=== PATIENT | male | born 1930 | race Caucasian/White ===

== ENCOUNTER → 2016-04-30 | Outpatient (CLI) | payer OTHER ==
[~2016-04-30] MED LIST: AMOX1TAB42 PO; ASPI81TA28 PO; DFL50 PO; ERGO1CAP41 PO; ESCI1TAB6 PO; GLC/500 PO; LEVO25TA PO; MELO15TA4 PO; NYSS/ PO; SIMV80TA2 PO; SYN50 PO; ZNTT/150 PO
[2016-04-30 09:48] LABS: BASO % 0.4 %; BASO ABS # 0.05 K/uL (0-0.2); COMPLETE YES; EOS % 2.5 %; HEMATOCRIT 38.8 % (42-52); IG% 0.8 %; LYMPH % 28.9 %; LYMPH ABS # 3.23 K/uL (1.2-3.4); MEAN CELL VOLUME 83.6 fL (80-100); MEAN CORPUSCULAR HGB CONC 33.5 g/dl (32-36); MEAN PLATELET VOLUME 11.8 fL (7.4-10.4); MONO % 15.2 %; NEUT % 52.2 %; PLATELET COUNT 196 K/uL (130-400); RED BLOOD COUNT 4.64 M/uL (4.7-6.1); WHITE BLOOD COUNT 11.19 K/uL (4.8-10.8)
[2016-04-30 10:01] LABS: BLOOD UREA NITROGEN 25 mg/dl (7-18); BUN/CREATININE RATIO 14.9 (10-20); CARBON DIOXIDE 27 mmol/L (21-32); CHLORIDE 107 mmol/L (98-107); GLUCOSE 108 mg/dl (70-99); POTASSIUM 4.2 mmol/L (3.5-5.1); SODIUM 142 mmol/L (136-145)
--- NOTE | 2016-05-01 13:22 | CODING QUERY NO DIAGNOSIS ---
TREATMENT RENDERED WITHOUT A DIAGNOSIS To promote full compliance with coding requirements relating to patient care, physician participation is requested in all cases of compo conveyor operator uncertainty. Please assist us with providing a diagnosis/symptom for the test(s) below: A diagnosis/symptom was not documented on your Order. A valid diagnosis/symptom is required to bill all insurances. Please remember that we are unable to code a diagnosis of rule out, probable, possible, questionable, or suspected. DATE OF SERVICE: 04/30/16 Tests that require a diagnosis: * BASIC METABOLIC PROFILE DIAGNOSIS: * CBC DIAGNOSIS: * TSH DIAGNOSIS: Provider Signature: Date: Thank you Geri Hernandez [facility] Information Management Once completed, please kindly fax back to [phone] For questions please call [phone]
== END | disposition home or self-care (01) ==
LOC: C.LABOUTLO 09:22
PROVIDERS: ATTEND Internal Medicine
DX: E03.9 Hypothyroidism, unspecified (principal); D64.9 Anemia, unspecified

== ENCOUNTER → 2016-05-15 | Outpatient (CLI) | payer OTHER ==
[2016-05-15 09:42] LABS: BLOOD UREA NITROGEN 21 mg/dl (7-18); BUN/CREATININE RATIO 14.9 (10-20); CALCIUM 8.6 mg/dl (8.5-10.1); CARBON DIOXIDE 29 mmol/L (21-32); CHLORIDE 106 mmol/L (98-107); GLUCOSE 104 mg/dl (70-99); POTASSIUM 4.3 mmol/L (3.5-5.1); SODIUM 142 mmol/L (136-145)
--- NOTE | 2016-05-16 10:34 | CODING QUERY NO DIAGNOSIS ---
TREATMENT RENDERED WITHOUT A DIAGNOSIS 31 To promote full compliance with coding requirements relating to patient care, physician participation is requested in all cases of municipal court magistrate uncertainty. Please assist us with providing a diagnosis/symptom for the test(s) below: A diagnosis/symptom was not documented on your Order. A valid diagnosis/symptom is required to bill all insurances. Please remember that we are unable to code a diagnosis of rule out, probable, possible, questionable, or suspected. DOS 05/15/16 Tests that require a diagnosis: * PARTIAL RENAL PROFILE DIAGNOSIS: Provider Signature: Date: Thank you Jill Caceres [place] Information Management Once completed, please kindly fax back to [phone] For questions please call [phone]
== END | disposition home or self-care (01) ==
LOC: C.LABOUTLO 09:24
PROVIDERS: ATTEND Internal Medicine
DX: E78.5 Hyperlipidemia, unspecified (principal)

== ENCOUNTER → 2016-05-29 | Outpatient (CLI) | payer OTHER ==
[~2016-05-29] MED LIST changes: -ERGO1CAP41 PO; +ERGO500011 PO
== END | disposition home or self-care (01) ==
LOC: C.LABOUTLO 09:17
PROVIDERS: ATTEND Internal Medicine
DX: E03.9 Hypothyroidism, unspecified (principal)

== ENCOUNTER → 2016-06-19 | Outpatient (CLI) | payer OTHER | END | disposition home or self-care (01) | LOC: C.LABOUTLO 08:28 | PROVIDERS: ATTEND Internal Medicine | DX: E03.9 Hypothyroidism, unspecified (principal) ==

== ENCOUNTER → 2016-06-30 | Outpatient (CLI) | payer OTHER ==
[2016-06-30 20:26] LABS: URINE APPEARANCE CLEAR (CLEAR); URINE BILIRUBIN NEG (NEG); URINE COLOR YELLOW; URINE NITRITE NEG (NEG); URINE PH 5.5 (4.5-7.5); URINE SPECIFIC GRAVITY 1.017 (1.000-1.030); UROBILINOGEN NEG (NEG)
[2016-06-30 20:30] LABS: MANUAL MICROSCOPIC REQUIRED? NO; REVIEW REQ? NO
== END | disposition home or self-care (01) ==
LOC: C.LABOUTLO 11:52
PROVIDERS: ATTEND Internal Medicine
DX: R31.9 Hematuria, unspecified (principal)

== ENCOUNTER → 2016-07-16 | Outpatient (CLI) | payer OTHER | END | disposition home or self-care (01) | LOC: C.LABOUTLO 09:04 | PROVIDERS: ATTEND Internal Medicine | DX: E03.9 Hypothyroidism, unspecified (principal) ==

== ENCOUNTER 2016-07-22 10:51 | Inpatient (IN) | payer OTHER ==
[~2016-07-22] VITALS: Ht 175.3 cm; Wt 77.4 kg
[~2016-07-22 10:51] MED LIST changes: -AMOX1TAB42 PO; -DFL50 PO; -ERGO500011 PO; -ESCI1TAB6 PO; -LEVO25TA PO; -MELO15TA4 PO; -NYSS/ PO; -SYN50 PO
[2016-07-22] MEDS ORDERED: SODIUM CHLORIDE 0.9% 1000ML 1,000 ML IV STA (11:20)
[2016-07-22 11:48] LABS: BASO % 0.3 %; BASO ABS # 0.04 K/uL (0-0.2); COMPLETE YES; EOS % 1.6 %; HEMATOCRIT 42.1 % (42-52); IG% 0.8 %; LYMPH % 11.3 %; LYMPH ABS # 1.76 K/uL (1.2-3.4); MEAN CELL VOLUME 82.1 fL (80-100); MEAN CORPUSCULAR HEMOGLOBIN 27.5 pg (25-34); MEAN CORPUSCULAR HGB CONC 33.5 g/dl (32-36); MEAN PLATELET VOLUME 10.8 fL (7.4-10.4); MONO % 11.2 %; NEUT % 74.8 %; PLATELET COUNT 205 K/uL (130-400); RED BLOOD COUNT 5.13 M/uL (4.7-6.1); WHITE BLOOD COUNT 15.59 K/uL (4.8-10.8)
--- NOTE | 2016-07-22 11:50 | DIAGNOSTIC IMAGING REPORT ---
CHEST ONE VIEW PORTABLE CLINICAL HISTORY: EVALUATE WEAKNESS dyspnea COMPARISON STUDY: None FINDINGS: Right basilar infiltrate and effusion. Mild cardia megaly. Prior median sternotomy. IMPRESSION: Right basilar infiltrate combine with a right effusion. Underlying components of mild congestive failure Electronically signed by: Joe Lubin M.D. 07/22/2016 11:48 AM Dictated Date/Time: 07/22/2016 11:48 AM
[2016-07-22 11:52] LABS: ALT/SGPT 21 U/L (12-78); AST/SGOT 17 U/L (15-37); BLOOD UREA NITROGEN 27 mg/dl (7-18); BUN/CREATININE RATIO 12.3 (10-20); CALCIUM 8.6 mg/dl (8.5-10.1); CARBON DIOXIDE 24 mmol/L (21-32); CHLORIDE 106 mmol/L (98-107); GLUCOSE 186 mg/dl (70-99); POTASSIUM 4.4 mmol/L (3.5-5.1); SODIUM 138 mmol/L (136-145)
[2016-07-22] MEDS ORDERED: MELO15TA4 PO (11:56)
[2016-07-22] MEDS ORDERED: ESCI1TAB6 PO (11:56)
[2016-07-22] MEDS ORDERED: LEVO25TA PO (11:56)
[2016-07-22] MEDS ORDERED: LEVAQUIN 750MG / 150ML D5W IV STA (12:00)
[2016-07-22 12:03] LABS: ALKALINE PHOSPHATASE 100 U/L (45-117)
--- NOTE | 2016-07-22 12:04 | DIAGNOSTIC IMAGING REPORT ---
HEAD CT NONCONTRAST CT DOSE: 729.78 mGycm HISTORY: Weakness EVALUATE WEAKNESS TECHNIQUE: Multiaxial CT images of the head were performed without the use of intravenous contrast. Comparison: None. Findings: The paranasal sinuses and mastoid air cells are clear. The calvarium and skull base are intact. The ventricles and sulci are within normal limits. There is no mass, hematoma, midline shift, or acute infarct. Findings of rather diffuse age-related chronic small vessel change as well as atrophy. No evidence for acute intracranial hemorrhage. Impression: Atrophy and chronic age-related change. No acute process. Electronically signed by: Joe Lubin M.D. 07/22/2016 12:02 PM Dictated Date/Time: 07/22/2016 12:01 PM
[2016-07-22] MEDS ORDERED: CEFEPIME IV 1,000 MG in DEXTROSE 5% 100ML 100 ML IV STA (12:24)
[2016-07-22] MEDS ORDERED: SODIUM CHLORIDE 0.9% 500ML 500 ML IV STA (12:24)
[2016-07-22 13:22] LABS: URINE APPEARANCE CLOUDY (CLEAR); URINE BILIRUBIN NEG (NEG); URINE COLOR DK YELLOW; URINE EPITHELIAL CELL AUTO 20-30 /lpf (0-5); URINE NITRITE NEG (NEG); URINE SPECIFIC GRAVITY 1.022 (1.000-1.030); UROBILINOGEN NEG (NEG)
[2016-07-22] MEDS ORDERED: ACETAMINOPHEN 325 MG TAB PO PRN (13:30)
[2016-07-22] MEDS ORDERED: ONDANSETRON INJ 2 MG/ML 2 ML VIAL IV PRN (13:30)
[2016-07-22] MEDS ORDERED: POLYETHYLENE (MIRALAX) 17 GM PACK PO PRN (13:30)
[2016-07-22 13:33] LABS: MANUAL MICROSCOPIC REQUIRED? NO; REVIEW REQ? YES
[2016-07-22] MEDS ORDERED: NYSS/ PO (13:33)
[2016-07-22 13:44] LABS: URINE MUCUS PRESENT (NONE PRSENT); URINE PATH CASTS 1-5 GRANULAR CASTS /lpf (0)
[2016-07-22] MEDS ORDERED: VANCOMYCIN CONSULT ACTIVE PRN (13:56)
[2016-07-22] MEDS ORDERED: LEVOFLOXACIN CONSULT ACTIVE PRN (14:00)
[2016-07-22] MEDS ORDERED: SODIUM CHLORIDE 0.9% 1000ML 1,000 ML IV SCH (14:00)
[2016-07-22] MEDS ORDERED: CEFEPIME CONSULT ACTIVE PRN ×2 (14:00)
--- NOTE | 2016-07-22 14:02 | History and Physical ---
History & Physical Date & Time of Service: July 22, 2016 at 13:42 Chief Complaint: Confusion, Lethergic [facility] History of Present Illness Source: patient, family, clinic records 86 yo M presents to ER from [facility] for increased weakness, lethargy, increased fatigue for the past two weeks. Workup revealed a RLL pneumonia and the patient reports some productive cough at least initially but denies any shortness of breath, chest pain, fevers, chills, headaches, dysuria or other urinary symptoms, abdominal pain or other pain, nausea, vomiting, or diarrhea. The history is given by the patient helped by his son who is at bedside. The son states that he just moved into [facility] in Apr and is doing well with it , but had recently been started on Lexapro for some depression. Otherwise no other new/changed medications and no other symptoms. At baseline, the patient ambulates without an assistive device. Past Medical/Surgical History Medical Problems: (1) Alzheimer disease Status: Chronic (2) GERD (gastroesophageal reflux disease) Status: Chronic (3) Hyperlipidemia Status: Chronic Surgical Problems: (1) History of heart valve replacement Status: Resolved Family History Patient reports no known family medical history. Social History Smoking Status: Never Smoker Smokeless Tobacco Use: No Alcohol Use: none Drug Use: none Marital Status: Housing status: fdc Occupational Status: retired Immunizations History of Influenza Vaccine: Unknown History of Tetanus Vaccine?: Unknown History of Pneumococcal: Unknown History of Hepatitis B Vaccine: Unknown Multi-Drug Resistant Organisms History of MDRO: No Allergies Coded Allergies: Donepezil (Unverified Adverse Reaction, Unknown, CONFUSION, 12/13/14) Ezetimibe (Unverified Adverse Reaction, Unknown, UNKNOWN, 12/13/14) Home Medications Scheduled Escitalopram Oxalate (Lexapro), 5 MG PO QAM Levothyroxine Sodium (Synthroid), 25 MCG PO QAM Meloxicam (Mobic), 12.5 MG PO DAILY Nystatin (Nystatin Suspension), 5 ML PO QID Ranitidine (Zantac), 150 MG PO BID Simvastatin (Zocor), 80 MG PO QPM Review of Systems Ten systems reviewed and negative except as indicated in HPI Physical Exam Vital Signs Date Time Temp Pulse Resp B/P Pulse Ox O2 Delivery O2 Flow Rate FiO2 07/22/16 13:28 76 07/22/16 12:06 66 24 92 07/22/16 12:02 95/65 07/22/16 12:01 89 14 07/22/16 11:41 80 25 93 07/22/16 11:36 84 15 94 07/22/16 11:31 70 17 91 07/22/16 11:30 96/71 07/22/16 11:26 80 32 92 07/22/16 11:21 94 21 07/22/16 11:16 92 18 93 07/22/16 11:12 98 07/22/16 11:11 87 14 92 07/22/16 11:10 93 Room Air 07/22/16 11:10 93 Room Air 07/22/16 11:08 105/65 07/22/16 10:57 36.7 88 18 87/59 93 Room Air GEN: WNWD, in no acute distress, alert and appropriate, no conversational dyspnea or tachypnea. [place] and doesn't have hearing aids in limiting exam. HEENT: NC/AT, PERRL, normal sclerae and conjunctivae, mucous membranes are moist , pharynx nonacute CARDIO: reg rate, S1/2 heard without m/g/r LUNGS: CTA bilaterally, no crackles, rales or wheezes, good diaphragmatic excursion except has diminished breath sounds at the right base ABD: soft, non-tender, non-distended, no rebound or guarding, +BS EXTREMITY: RP and DP palpable 2+ bilat, no LE swelling or edema, extremities are warm and well-perfused, small shallow pressure ulcers on soles of feet bilaterally NEURO: CN 2-12 grossly intact, sensation intact throughout, no gross focal deficits, has some obvious short term memory loss MUSC: 5/5 strength throughout, no focal deficits SKIN: warm and dry and wounds as above. Diagnostics Laboratory Results Results Past 24 Hours Test 07/22/16 11:10 07/22/16 12:49 Range/Units White Blood Count 15.59 4.8-10.8 K/uL Red Blood Count 5.13 4.7-6.1 M/uL Hemoglobin 14.1 14.0-18.0 g/dL Hematocrit 42.1 42-52 % Mean Corpuscular Volume 82.1 80-100 fL Mean Corpuscular Hemoglobin 27.5 25-34 pg Mean Corpuscular Hemoglobin Concent 33.5 32-36 g/dl Platelet Count 205 130-400 K/uL Mean Platelet Volume 10.8 7.4-10.4 fL Neutrophils (%) (Auto) 74.8 % Lymphocytes (%) (Auto) 11.3 % Monocytes (%) (Auto) 11.2 % Eosinophils (%) (Auto) 1.6 % Basophils (%) (Auto) 0.3 % Neutrophils # (Auto) 11.67 1.4-6.5 K/uL Lymphocytes # (Auto) 1.76 1.2-3.4 K/uL Monocytes # (Auto) 1.74 0.11-0.59 K/uL Eosinophils # (Auto) 0.25 0-0.5 K/uL Basophils # (Auto) 0.04 0-0.2 K/uL RDW Standard Deviation 39.6 36.4-46.3 fL RDW Coefficient of Variation 13.2 11.5-14.5 % Immature Granulocyte % (Auto) 0.8 % Immature Granulocyte # (Auto) 0.13 0.00-0.02 K/uL Sodium Level 138 136-145 mmol/L Potassium Level 4.4 3.5-5.1 mmol/L Chloride Level 106 98-107 mmol/L Carbon Dioxide Level 24 21-32 mmol/L Anion Gap 8.0 3-11 mmol/L Blood Urea Nitrogen 27 7-18 mg/dl Creatinine 2.20 0.60-1.40 mg/dl Est Creatinine Clear Calc Drug Dose 24.6 ml/min Estimated GFR () 30.5 Estimated GFR (Non- 26.3 BUN/Creatinine Ratio 12.3 10-20 Random Glucose 186 70-99 mg/dl Calcium Level 8.6 8.5-10.1 mg/dl Total Bilirubin 0.5 0.2-1 mg/dl Direct Bilirubin < 0.1 0-0.2 mg/dl Aspartate Amino Transf (AST/SGOT) 17 15-37 U/L Alanine Aminotransferase (ALT/SGPT) 21 12-78 U/L Alkaline Phosphatase 100 45-117 U/L Total Protein 8.3 6.4-8.2 gm/dl Albumin 3.2 3.4-5.0 gm/dl Thyroid Stimulating Hormone (TSH) 6.660 0.300-4.500 uIu/ml Urine Color DK YELLOW Urine Appearance CLOUDY CLEAR Urine pH 5.0 4.5-7.5 Urine Specific [place] 1.022 1.000-1.030 Urine Protein 2+ NEG Urine Glucose (UA) NEG NEG Urine Ketones TRACE NEG Urine Occult Blood 3+ NEG Urine Nitrite NEG NEG Urine Bilirubin NEG NEG Urine Urobilinogen NEG NEG Urine Leukocyte Esterase TRACE NEG Diagnostic Radiology CHEST ONE VIEW PORTABLE CLINICAL HISTORY: EVALUATE WEAKNESS dyspnea COMPARISON STUDY: None FINDINGS: Right basilar infiltrate and effusion. Mild cardia megaly. Prior median sternotomy. IMPRESSION: Right basilar infiltrate combine with a right effusion. Underlying components of mild congestive failure HEAD CT NONCONTRAST CT DOSE: 729.78 mGycm HISTORY: Weakness EVALUATE WEAKNESS TECHNIQUE: Multiaxial CT images of the head were performed without the use of intravenous contrast. Comparison: None. Findings: The paranasal sinuses and mastoid air cells are clear. The calvarium and skull base are intact. The ventricles and sulci are within normal limits. There is no mass, hematoma, midline shift, or acute infarct. Findings of rather diffuse age-related chronic small vessel change as well as atrophy. No evidence for acute intracranial hemorrhage. Impression: Atrophy and chronic age-related change. No acute process. EKG SR 87 occ PVCs Impression Assessment and Plan 86 yo M fdc resident presents with worsening weakness and confusion over past two weeks 2/2 RLL pneumonia 1. Weakness, confusion, lethargy 2/2 metabolic encephalopathy 2/2 HCAP- productive cough reported by patient but main symptoms are fatigue malaise and some intermittent confusion in the setting of known Alzheimer's dementia. Not requiring oxygen supplementation and does not appear dehydrated. Coming from [facility], and although not septic will cover him broadly initially until starts to improve clinically. Vanc, Cefepime and Levaquin ordered. Blood and sputum cultures pending. MRSA screening was negative so Vanc was d/c'd 2. AYLEEN in setting of CKD III- creat is 2.2 with baseline 1.4. Will order urine studies and give some IVF overnight. Although no clinical dehydration is apparent, he may have had decreased PO intake with the confusion, lethargy and frequent sleeping over the past two weeks. --> FeNa is 0.57% supporting prerenal azotemia likely 2/2 dehydration. Repeat PRP in am. 3. Leukocytosis 2/2 PNA-treatment per #1 and monitor daily CBC 4. h/o heart valve replacement-no CAD or stents per son, however, records request was placed 5. Alzheimer's dementia-h/o problems with donepezil in the past; good day/ night cycles in hospital to avoid delirium 6. GERD-cont Zantac 7. HLP-cont Zocor 8. Hypothyroidism-cont Synthroid. TSH slightly elevated to 6.6, however, I would clear up the infection and then re-evaluate his symptoms as an outpatient prior to going up on his Synthroid. DVT proph-heparin DNR-per son who is at bedside on admission Dispo-[facility] floor [facility] Level of Care Telemetry Resuscitation Status DO NOT RESUSCITATE VTE Prophylaxis VTE Risk Assessment Done? Y/N: Yes Risk Level: Moderate Given or contraindicated: Unfractionated heparin SQ Social Service Consult Lives in Senior Living
[2016-07-22 14:14] VITALS: BP 123/84; PULSE 80; TEMP 36.7; O2SAT 95; BMI 24.4
--- NOTE | 2016-07-22 15:05 | EMERGENCY ROOM VISIT NOTE ---
History Report prepared by Kike: Negar Chang Under the Supervision of: Dr. Josue Mckeon D.O. First contact with patient: 11:02 Chief Complaint: ILLNESS Stated Complaint: CONFUSION, LETHERGIC History of Present Illness The patient is a 86 year old male who presents to the Emergency Room with complaints of constant confusion that worsened about 2 weeks ago, per the patient's son. The patient resides at [facility] and he receives the lowest level of care so he pretty much takes care of himself. However, the patient's son states that the patient has needed more assistance recently and has been more confused than usual. The patient's son states that the patient's confusion is noticeably worse than previously, but it is still a gradual decline. The patient 's son also states that the patient has been sleeping a lot and staying in his room. The patient has also complained of dizziness, but has not experienced any syncope. The patient does not report any complaints with the exception of a mild cough and rhinorrhea. He denies headache, chest pain, shortness of breath, nausea, vomiting, diarrhea, and pain or burning with urination. The patient's son states that the patient saw a nurse practitioner 5 days ago and was started on Lexapro. He has also been given a new mouthwash recently. The patient's son denies any other new medications. Source of History: patient, family (son) Onset: 2 weeks ago Position: head Quality: other (confusion) Timing: constant, worsening Associated Symptoms: No SOB, No chest pain, No diarrhea, No headache, No nausea, No urinary symptoms (pain or burning with urination), No vomiting Note: dizziness, mild cough, rhionrrhea Review of Systems See HPI for pertinent positives & negatives. A total of 10 systems reviewed and were otherwise negative. Past Medical & Surgical Medical Problems: (1) Altered mental status (2) Alzheimer disease (3) GERD (gastroesophageal reflux disease) (4) Hyperlipidemia Surgical Problems: (1) History of heart valve replacement Family History Patient reports no known family medical history. Social History Smoking Status: Never Smoker Marital Status: Housing Status: lives with family Occupation Status: retired Current/Historical Medications Scheduled Escitalopram Oxalate (Lexapro), 5 MG PO QAM Levothyroxine Sodium (Synthroid), 25 MCG PO QAM Meloxicam (Mobic), 12.5 MG PO DAILY Nystatin (Nystatin Suspension), 5 ML PO QID Ranitidine (Zantac), 150 MG PO BID Simvastatin (Zocor), 80 MG PO QPM Allergies Coded Allergies: Donepezil (Unverified Adverse Reaction, Unknown, CONFUSION, 12/13/14) Ezetimibe (Unverified Adverse Reaction, Unknown, UNKNOWN, 12/13/14) Physical Exam Vital Signs Date Time Temp Pulse Resp B/P Pulse Ox O2 Delivery O2 Flow Rate FiO2 07/22/16 12:56 77 18 95 07/22/16 12:51 72 21 92 07/22/16 12:46 97 18 07/22/16 12:41 75 18 95 07/22/16 12:36 77 21 95 07/22/16 12:31 72 19 118/76 94 07/22/16 12:26 74 21 92 07/22/16 12:21 79 23 93 07/22/16 12:16 70 18 93 07/22/16 12:11 69 23 91 07/22/16 12:06 66 24 92 07/22/16 12:02 95/65 07/22/16 12:01 89 14 07/22/16 11:41 80 25 93 07/22/16 11:36 84 15 94 07/22/16 11:31 70 17 91 07/22/16 11:30 96/71 07/22/16 11:26 80 32 92 07/22/16 11:21 94 21 07/22/16 11:16 92 18 93 07/22/16 11:12 98 07/22/16 11:11 87 14 92 07/22/16 11:10 93 Room Air 07/22/16 11:10 93 Room Air 07/22/16 11:08 105/65 07/22/16 10:57 36.7 88 18 87/59 93 Room Air Physical Exam GENERAL: alert, sitting up in bed, chronically ill appearing, malnourished, no distress, non-toxic EYE EXAM: normal conjunctiva, PERRL and EOM's intact OROPHARYNX: no exudate, no erythema, lips, buccal mucosa, and tongue normal and mucous membranes are moist NECK: supple, no nuchal rigidity, no adenopathy, non-tender LUNGS: Clear to auscultation. Normal chest wall mechanics HEART: systolic ejection murmur, S1 normal and S2 normal ABDOMEN: abdomen soft, non-tender, normo-active bowel sounds, no masses, no rebound or guarding. BACK: Back is symmetrical on inspection and there is no deformity, no midline tenderness, no CVA tenderness. SKIN: no rashes and no bruising UPPER EXTREMITIES: upper extremities are grossly normal. LOWER EXTREMITIES: No pitting edema. NEURO EXAM: Oriented to person and hospital but not year, cranial nerves II-XII intact, normal speech, no weakness of arms, no weakness of legs. No drift. Finger to nose intact. Gross sensation intact. Medical Decision & Procedures ER Provider Diagnostic Interpretation: Radiology results as stated below per my review and the radiologist's interpretation: CHEST ONE VIEW PORTABLE FINDINGS: Right basilar infiltrate and effusion. Mild cardia megaly. Prior median sternotomy. IMPRESSION: Right basilar infiltrate combine with a right effusion. Underlying components of mild congestive failure Electronically signed by: Joe Lubin M.D. 07/22/2016 11:48 AM Dictated Date/Time: 07/22/2016 11:[address] NONCONTRAST Findings: The paranasal sinuses and mastoid air cells are clear. The calvarium and skull base are intact. The ventricles and sulci are within normal limits. There is no mass, hematoma, midline shift, or acute infarct. Findings of rather diffuse age-related chronic small vessel change as well as atrophy. No evidence for acute intracranial hemorrhage. Impression: Atrophy and chronic age-related change. No acute process. Electronically signed by: Joe Lubin M.D. 07/22/2016 12:02 PM Dictated Date/Time: 07/22/2016 12:01 PM Laboratory Results 07/22/16 11:10 Red Blood Count 5.13, Mean Corpuscular Volume 82.1, Mean Corpuscular Hemoglobin 27.5, Mean Corpuscular Hemoglobin Concent 33.5, Mean Platelet Volume 10.8, Neutrophils (%) (Auto) 74.8, Lymphocytes (%) (Auto) 11.3, Monocytes (%) (Auto) 11.2, Eosinophils (%) (Auto) 1.6, Basophils (%) (Auto) 0.3, Neutrophils # (Auto ) 11.67, Lymphocytes # (Auto) 1.76, Monocytes # (Auto) 1.74, Eosinophils # (Auto ) 0.25, Basophils # (Auto) 0.04 07/22/16 11:10 Test 07/22/16 11:10 07/22/16 12:49 White Blood Count 15.59 K/uL (4.8-10.8) Red Blood Count 5.13 M/uL (4.7-6.1) Hemoglobin 14.1 g/dL (14.0-18.0) Hematocrit 42.1 % (42-52) Mean Corpuscular Volume 82.1 fL (80-100) Mean Corpuscular Hemoglobin 27.5 pg (25-34) Mean Corpuscular Hemoglobin Concent 33.5 g/dl (32-36) Platelet Count 205 K/uL (130-400) Mean Platelet Volume 10.8 fL (7.4-10.4) Neutrophils (%) (Auto) 74.8 % Lymphocytes (%) (Auto) 11.3 % Monocytes (%) (Auto) 11.2 % Eosinophils (%) (Auto) 1.6 % Basophils (%) (Auto) 0.3 % Neutrophils # (Auto) 11.67 K/uL (1.4-6.5) Lymphocytes # (Auto) 1.76 K/uL (1.2-3.4) Monocytes # (Auto) 1.74 K/uL (0.11-0.59) Eosinophils # (Auto) 0.25 K/uL (0-0.5) Basophils # (Auto) 0.04 K/uL (0-0.2) RDW Standard Deviation 39.6 fL (36.4-46.3) RDW Coefficient of Variation 13.2 % (11.5-14.5) Immature Granulocyte % (Auto) 0.8 % Immature Granulocyte # (Auto) 0.13 K/uL (0.00-0.02) Anion Gap 8.0 mmol/L (3-11) Est Creatinine Clear Calc Drug Dose 24.6 ml/min Estimated GFR () 30.5 Estimated GFR (Non- 26.3 BUN/Creatinine Ratio 12.3 (10-20) Calcium Level 8.6 mg/dl (8.5-10.1) Total Bilirubin 0.5 mg/dl (0.2-1) Direct Bilirubin < 0.1 mg/dl (0-0.2) Aspartate Amino Transf (AST/SGOT) 17 U/L (15-37) Alanine Aminotransferase (ALT/SGPT) 21 U/L (12-78) Alkaline Phosphatase 100 U/L (45-117) Total Protein 8.3 gm/dl (6.4-8.2) Albumin 3.2 gm/dl (3.4-5.0) Thyroid Stimulating Hormone (TSH) 6.660 uIu/ml (0.300-4.500) Urine Color DK YELLOW Urine Appearance CLOUDY (CLEAR) Urine pH 5.0 (4.5-7.5) Urine Specific [place] 1.022 (1.000-1.030) Urine Protein 2+ (NEG) Urine Glucose (UA) NEG (NEG) Urine Ketones TRACE (NEG) Urine Occult Blood 3+ (NEG) Urine Nitrite NEG (NEG) Urine Bilirubin NEG (NEG) Urine Urobilinogen NEG (NEG) Urine Leukocyte Esterase TRACE (NEG) Urine WBC (Auto) 10-30 /hpf (0-5) Urine RBC (Auto) >30 /hpf (0-4) Urine Hyaline Casts (Auto) 1-5 /lpf (0-5) Urine Epithelial Cells (Auto) 20-30 /lpf (0-5) Urine Bacteria (Auto) NEG (NEG) Urine Pathogenic Casts 1-5 GRANULAR CASTS /lpf (0) Urine Mucus PRESENT (NONE PRSENT) Urine Yeast (Auto) (NONE PRSENT) Urine Random Creatinine 210.0 mg/dl Urine Random Sodium 75 mEq/L Laboratory results per my review. Medications Administered Medications (Trade) Dose Ordered Sig/Jose Route Start Time Stop Time Status Last Admin Dose Admin Sodium Chloride (Nss 1000ml) 1,000 ml @ 999 mls/hr Q1H1M STAT IV 07/22/16 11:20 07/22/16 12:20 DC 07/22/16 11:20 999 MLS/HR Levofloxacin 750 mg 750 mg NOW STAT IV 07/22/16 12:00 07/22/16 12:01 DC 07/22/16 12:14 750 MG Cefepime HCl 1000 mg/Dextrose 111.3 ml @ 200 mls/hr NOW STAT IV 07/22/16 12:24 07/22/16 12:57 DC 07/22/16 12:24 200 MLS/HR Sodium Chloride (Nss 500ml) 500 ml @ 999 mls/hr Q31M STAT IV 07/22/16 12:24 07/22/16 12:54 DC 07/22/16 12:24 999 MLS/HR ECG Indication: altered mental status Rate (beats per minute): 87 Rhythm: sinus rhythm Findings: other (normal axis, poor baseline in septal leads) ED Course ED COURSE: Vital signs were reviewed and showed hypotension. The patients medical record was reviewed The above diagnostic studies were performed and reviewed. ED treatments and interventions as stated above. 1113: The patient was evaluated in room C11. A complete history and physical examination was performed. 1120: Ordered Sodium Chloride 1000 ml @ 999 mls/hr IV 1200: Ordered Levofloxacin 750 mg IV 1222: Upon reevaluation, the patient is resting comfortably. I discussed my findings with the patient and his son. They understand and agree with the treatment plan. Based on the patients age, coexisting illnesses, exam and lab findings the decision to treat as an inpatient was made. The patient remained stable while under my care. The patient will be evaluated for further management. 1223: I reviewed the patient's case with Sherita Cantrell. She will evaluate the patient for further management. 1224: Ordered Sodium Chloride 500 ml @ 999 mls/hr IV, Cefepime HCl 1000 mg/ Dextrose 111.3 ml @ 200 mls/hr IV Medical Decision Differential diagnoses includes but is not limited to toxic, metabolic, infectious, traumatic, cardiac, neurologic, hematologic, psychiatric and inflammatory etiologies. Patient is in 86-year-old male who presents to the ER from the residential for weakness and worsening altered mental status. He has had a cough and runny nose. No reported fevers. Vitals show hypotension with systolic pressures in the 90s. He was given a bolus normal saline. Chest x-ray supports a right lower lobe infiltrate and likely effusion. Labs are remarkable for a leukocytosis of 15,000. BMP also has an increase of creatinine from 1.4 baseline to 2.2. Bilirubin along with LFTs and TSH are unremarkable. UA was contaminated with multiple epithelial cells. Patient was given a dose of Levaquin and cefepime and admitted to internal medicine with pneumonia. Consults Time Called: -- Consulting Physician: Sherita Cantrell Returned Call: 1223 I reviewed the patient's case with Sherita Cantrell. She will evaluate the patient for further management. Impression Primary Impression: Pneumonia Additional Impressions: AYLEEN (acute kidney injury) Altered mental status Scribe Attestation The scribe's documentation has been prepared under my direction and personally reviewed by me in its entirety. I confirm that the note above accurately reflects all work, treatment, procedures, and medical decision making performed by me. Departure Information Dispostion Being Evaluated By Hospitalist [facility]errals [facility] ([facility] Patient Instructions My [facility] Problem Qualifiers Primary Impression: Pneumonia Pneumonia type: due to unspecified organism Laterality: right Lung location : lower lobe of lung Qualified Codes: J18.1 - Lobar pneumonia, unspecified organism Additional Impressions: Altered mental status Altered mental status type: unspecified Qualified Codes: R41.82 - Altered mental status, unspecified
[2016-07-22] MEDS ORDERED: PNEUMOCOCCAL ADMINISTRATION CHARGE ONE (15:15)
[2016-07-22] MEDS ORDERED: PNEUMOCOCCAL POLYSACCHARIDES 25 MCG/0.5 ML VIAL/SYR IM. ONE (15:15)
[2016-07-22 15:33] LABS: PARTIAL THROMBOPLASTIN RATIO 1.1; PROTHROMBIN TIME (PATIENT) 11.2 SECONDS (9.0-12.0)
[2016-07-22 15:48] VITALS: O2SAT 95
--- NOTE | 2016-07-22 15:49 | Pharmacy Progress Note ---
Pharmacy Abx Initial Consult Date of Service July 22, 2016. Pharmacy Dosing Scope Date of Consult: 07/22/16 Consultation requested by: Dr. Welch Pharmacy is consulted to initiate Vancomycin/Levaquin/Cefepime IV dosing therapy , order appropriate labs and adjust drug dose/frequency. Subjective The patient is a 86 year old male admitted on July 22, 2016 at 12:57 for the treatment of HCAP Objective Height (Feet): 5 Height (Inches): 9.00 Weight (Kilograms): 75.000 Vital Signs (Past 12Hrs) Vital Signs Past 12 Hours Date Time Temp Pulse Resp B/P Pulse Ox O2 Delivery O2 Flow Rate FiO2 07/22/16 14:32 36.7 80 22 123/84 95 07/22/16 14:14 36.7 80 22 123/84 95 Room Air 07/22/16 14:01 81 22 123/84 07/22/16 13:56 81 20 07/22/16 13:51 84 12 07/22/16 13:46 87 26 07/22/16 13:41 78 22 07/22/16 13:36 76 25 07/22/16 13:31 74 25 119/90 07/22/16 13:28 76 07/22/16 13:26 80 14 07/22/16 13:21 79 20 07/22/16 13:16 79 16 07/22/16 13:11 76 18 95 07/22/16 13:06 73 23 94 07/22/16 13:01 77 17 107/74 88 07/22/16 12:56 77 18 95 07/22/16 12:51 72 21 92 07/22/16 12:46 97 18 07/22/16 12:41 75 18 95 07/22/16 12:36 77 21 95 07/22/16 12:31 72 19 118/76 94 07/22/16 12:26 74 21 92 07/22/16 12:21 79 23 93 07/22/16 12:16 70 18 93 07/22/16 12:11 69 23 91 07/22/16 12:06 66 24 92 07/22/16 12:02 95/65 07/22/16 12:01 89 14 07/22/16 11:41 80 25 93 07/22/16 11:36 84 15 94 07/22/16 11:31 70 17 91 07/22/16 11:30 96/71 07/22/16 11:26 80 32 92 07/22/16 11:21 94 21 07/22/16 11:16 92 18 93 07/22/16 11:12 98 07/22/16 11:11 87 14 92 07/22/16 11:10 93 Room Air 07/22/16 11:10 93 Room Air 07/22/16 11:08 105/65 07/22/16 10:57 36.7 88 18 87/59 93 Room Air Lab Results (24Hrs) Test 07/22/16 11:10 07/22/16 12:49 White Blood Count 15.59 K/uL (4.8-10.8) Red Blood Count 5.13 M/uL (4.7-6.1) Hemoglobin 14.1 g/dL (14.0-18.0) Hematocrit 42.1 % (42-52) Mean Corpuscular Volume 82.1 fL (80-100) Mean Corpuscular Hemoglobin 27.5 pg (25-34) Mean Corpuscular Hemoglobin Concent 33.5 g/dl (32-36) Platelet Count 205 K/uL (130-400) Mean Platelet Volume 10.8 fL (7.4-10.4) Neutrophils (%) (Auto) 74.8 % Lymphocytes (%) (Auto) 11.3 % Monocytes (%) (Auto) 11.2 % Eosinophils (%) (Auto) 1.6 % Basophils (%) (Auto) 0.3 % Neutrophils # (Auto) 11.67 K/uL (1.4-6.5) Lymphocytes # (Auto) 1.76 K/uL (1.2-3.4) Monocytes # (Auto) 1.74 K/uL (0.11-0.59) Eosinophils # (Auto) 0.25 K/uL (0-0.5) Basophils # (Auto) 0.04 K/uL (0-0.2) RDW Standard Deviation 39.6 fL (36.4-46.3) RDW Coefficient of Variation 13.2 % (11.5-14.5) Immature Granulocyte % (Auto) 0.8 % Immature Granulocyte # (Auto) 0.13 K/uL (0.00-0.02) Prothrombin Time 11.2 SECONDS (9.0-12.0) Prothromb Time International Ratio 1.0 (0.9-1.1) Activated Partial Thromboplast Time 28.7 SECONDS (21.0-31.0) Partial Thromboplastin Ratio 1.1 Sodium Level 138 mmol/L (136-145) Potassium Level 4.4 mmol/L (3.5-5.1) Chloride Level 106 mmol/L (98-107) Carbon Dioxide Level 24 mmol/L (21-32) Anion Gap 8.0 mmol/L (3-11) Blood Urea Nitrogen 27 mg/dl (7-18) Creatinine 2.20 mg/dl (0.60-1.40) Est Creatinine Clear Calc Drug Dose 24.6 ml/min Estimated GFR () 30.5 Estimated GFR (Non- 26.3 BUN/Creatinine Ratio 12.3 (10-20) Random Glucose 186 mg/dl (70-99) Calcium Level 8.6 mg/dl (8.5-10.1) Total Bilirubin 0.5 mg/dl (0.2-1) Direct Bilirubin < 0.1 mg/dl (0-0.2) Aspartate Amino Transf (AST/SGOT) 17 U/L (15-37) Alanine Aminotransferase (ALT/SGPT) 21 U/L (12-78) Alkaline Phosphatase 100 U/L (45-117) Total Protein 8.3 gm/dl (6.4-8.2) Albumin 3.2 gm/dl (3.4-5.0) Thyroid Stimulating Hormone (TSH) 6.660 uIu/ml (0.300-4.500) Urine Color DK YELLOW Urine Appearance CLOUDY (CLEAR) Urine pH 5.0 (4.5-7.5) Urine Specific [place] 1.022 (1.000-1.030) Urine Protein 2+ (NEG) Urine Glucose (UA) NEG (NEG) Urine Ketones TRACE (NEG) Urine Occult Blood 3+ (NEG) Urine Nitrite NEG (NEG) Urine Bilirubin NEG (NEG) Urine Urobilinogen NEG (NEG) Urine Leukocyte Esterase TRACE (NEG) Urine WBC (Auto) 10-30 /hpf (0-5) Urine RBC (Auto) >30 /hpf (0-4) Urine Hyaline Casts (Auto) 1-5 /lpf (0-5) Urine Epithelial Cells (Auto) 20-30 /lpf (0-5) Urine Bacteria (Auto) NEG (NEG) Urine Pathogenic Casts 1-5 GRANULAR CASTS /lpf (0) Urine Mucus PRESENT (NONE PRSENT) Urine Yeast (Auto) (NONE PRSENT) Urine Random Creatinine 210.0 mg/dl Urine Random Sodium 75 mEq/L Micro Results Date/Time Source Procedure Growth Status 07/22/16 13:51 Blood Blood Culture Pending Wilber Batch 07/22/16 13:51 Blood Blood Culture Pending Wilber Batch 07/22/16 14:35 Nasal MRSA DNA Surveillance Screen Pending Received 07/22/16 12:49 Urine , Clean Catch Urine Culture Pending Received Risk Factors for Resistance * Resident in a chcf or extended-care facility Assessment & Plan Assessment 86 year old male admitted with lethargy/confusion, found to have RLL pneumonia. Pt to be initiated on broad spectrum antibiotics: Vancomycin, Cefepime, Levaquin. Blood cultures, MRSA swab, urine culture pending. Plan Vancomycin/Cefepime/Levaquin for treatment of HCAP Vancomycin IV * Loading dose: 1500 mg (20 mg/kg) * Modified loading dose given due to likelihood of drug accumulation in patient with CKD and current AYLEEN * Goal trough level for lung source : 15 to 20 mcg/mL * Random level ordered for 07/23/16 with AM labs * Further maintenance dose may be scheduled tomorrow, depending on renal function. Cefepime * Target dose: 2 g IV every 8 hours * Renal recommendation: 2 g IV every 24 hours Levaquin * Target dose: 750 mg IV daily * Renal recommendation: 750 mg IV every 48 hours Pharmacy will continue to follow and will adjust dose/frequency as necessary. Thank you.
[2016-07-22] MEDS ORDERED: VANCOMYCIN INJ 1,500 MG in SODIUM CHLORIDE 0.9% 500ML 500 ML IV ONE (16:00)
[2016-07-22 17:46] LABS: INFLUENZA A PCR Neg for Influ A (NEG); INFLUENZA B PCR Neg for Influ B (NEG)
[2016-07-22 19:41] VITALS: BP 133/78; PULSE 83; TEMP 37.2; O2SAT 94
[2016-07-22] MEDS: SIMVASTATIN 80 MG TAB PO SCH (20:05)
[2016-07-22] MEDS: RANITIDINE HCL 150 MG TAB PO SCH (20:05)
[2016-07-22] MEDS: HEPARIN SOD 5000 UNIT/0.5 ML CARP SQ SCH (22:17)
[2016-07-23 00:03] VITALS: BP_SYST 125; BP_SYST 156; BP_DIAS 82; BP_DIAS 83; PULSE 89; TEMP 36.6; O2SAT 95
[2016-07-23 04:00] VITALS: BP 129/88; PULSE 84; TEMP 36.9; O2SAT 93
[2016-07-23 04:10] LABS: BASO % 0.2 %; BASO ABS # 0.03 K/uL (0-0.2); COMPLETE YES; EOS % 1.8 %; HEMATOCRIT 36.4 % (42-52); IG% 0.5 %; LYMPH % 13.2 %; LYMPH ABS # 1.87 K/uL (1.2-3.4); MEAN CELL VOLUME 81.6 fL (80-100); MEAN CORPUSCULAR HEMOGLOBIN 27.6 pg (25-34); MEAN CORPUSCULAR HGB CONC 33.8 g/dl (32-36); MEAN PLATELET VOLUME 10.4 fL (7.4-10.4); MONO % 12.7 %; NEUT % 71.6 %; PLATELET COUNT 152 K/uL (130-400); RED BLOOD COUNT 4.46 M/uL (4.7-6.1); WHITE BLOOD COUNT 14.16 K/uL (4.8-10.8)
[2016-07-23 04:30] LABS: BUN/CREATININE RATIO 13.4 (10-20); CALCIUM 8.2 mg/dl (8.5-10.1); CREATININE 1.8 mg/dl (0.60-1.40); MAGNESIUM 1.7 mg/dl (1.8-2.4); POTASSIUM 4.3 mmol/L (3.5-5.1)
[2016-07-23] MEDS: HEPARIN SOD 5000 UNIT/0.5 ML CARP SQ SCH ×3 (06:08→21:16)
[2016-07-23] MEDS: LEVOTHYROXINE 25 MCG TAB PO SCH (06:08)
[2016-07-23 07:43] VITALS: BP 135/80; PULSE 85; TEMP 36.4; O2SAT 92
[2016-07-23] MEDS ORDERED: CEFEPIME IV 2000 MG in DEXTROSE 5% 100ML IV SCH (08:00)
[2016-07-23] MEDS: ESCITALOPRAM OXALATE 10 MG TAB PO SCH (08:06)
[2016-07-23] MEDS: RANITIDINE HCL 150 MG TAB PO SCH ×2 (08:06→21:17)
[2016-07-23] MEDS ORDERED: SODIUM CHLORIDE 0.9% 1000ML 1,000 ML IV SCH (10:15)
--- NOTE | 2016-07-23 10:20 | Clinical Documentation Query ---
CLINICAL DOCUMENTATION QUERY 86 year old male who presents to the Emergency Room with complaints of constant confusion found to have metabolic encephalopathy from HCAP. HCAP is more likely to be caused by bacteria resistant to first line antibiotics, such as MRSA and Psuedomonas. Unless type of pneumonia is specified HCAP codes to simple pneumonia. In your clinical opinion is this patient being managed for: (x ) Suspected Gram-Negative pneumonia in setting of HCAP treated with IV Cefepime and IV Levofloxacin ( ) Possible aspiration pneumonia in setting of advanced alzheimer's treated with Aspiration precautions, Speech therapy consult, and IV Cefepime and Levofloxacin. ( ) Other explanation of clinical findings (Please Explain) ( ) Unable to determine (Please Define) ( ) Need to Discuss ( ) Not Agree The medical record reflects the following clinical findings, treatment, and risk factors. Clinical Indicators: RLL infiltrate, Leukocytosis (15.59), hypotension (87/59), and lethargy. Treatment: IV Cefepime, IV Levofloxacin, Aspiration precautions, Speech therapy consult, Risk Factors: Age, alzheimer's, chcf residence, Please clarify and document your clinical opinion in the progress notes and discharge summary. Terms such as "probable", "suspected", "likely", "questionable", "possible", or "still to be ruled out" are acceptable. IF IN AGREEMENT, YOU MUST DOCUMENT ABOVE DIAGNOSTIC STATEMENT IN DAILY PROGRESS NOTES AND DISCHARGE SUMMARY. This document is not part of the patient's record. Thank You, Obdulio Edgar RN [phone]
[2016-07-23] MEDS: MAGNESIUM SULFATE 1GM / D5W 1 GM in PREMIXED IN D5W 100 ML IV SCH ×2 (10:23→11:25)
[2016-07-23 10:49] VITALS: BP 135/80; PULSE 85; TEMP 36.4; O2SAT 92
[2016-07-23 11:33] VITALS: BP 134/85; PULSE 88; TEMP 37; O2SAT 94
[2016-07-23 15:47] VITALS: BP 142/76; PULSE 83; TEMP 36.9; O2SAT 95
[2016-07-23] MEDS: CEFEPIME IV 2000 MG in DEXTROSE 5% 100ML IV SCH (19:41)
[2016-07-23] MEDS: SIMVASTATIN 80 MG TAB PO SCH (21:17)
--- NOTE | 2016-07-23 22:23 | Progress Note ---
Medicine Progress Note Date & Time of Visit: July 23, 2016 at 10:08. Subjective 86 yo M halfway resident presents with worsening weakness and confusion over past two weeks 2/2 RLL pneumonia -improved today, appears to have more energy -tolerating PO -asymptomatic. Objective Last 8 Hrs Date Time Temp Pulse Resp B/P Pulse Ox O2 Delivery O2 Flow Rate FiO2 07/23/16 08:00 Room Air 07/23/16 07:43 36.4 85 18 135/80 92 Room Air 07/23/16 04:00 36.9 84 18 129/88 93 Room Air 07/23/16 04:00 Room Air Physical Exam: GEN: WNWD, in no acute distress, alert and appropriate HEENT: NC/AT, normal sclerae CARDIO: reg rate, S1/2 heard without m/g/r LUNGS: CTA bilaterally, no crackles, rales or wheezes, good diaphragmatic excursion ABD: soft, non-tender, non-distended, no rebound or guarding EXTREMITY: no LE swelling or edema, extremities are warm and well-perfused SKIN: warm and dry Laboratory Results: 07/23/16 04:00 Red Blood Count 4.46, Mean Corpuscular Volume 81.6, Mean Corpuscular Hemoglobin 27.6, Mean Corpuscular Hemoglobin Concent 33.8, Mean Platelet Volume 10.4, Neutrophils (%) (Auto) 71.6, Lymphocytes (%) (Auto) 13.2, Monocytes (%) (Auto) 12.7, Eosinophils (%) (Auto) 1.8, Basophils (%) (Auto) 0.2, Neutrophils # (Auto ) 10.13, Lymphocytes # (Auto) 1.87, Monocytes # (Auto) 1.80, Eosinophils # (Auto ) 0.26, Basophils # (Auto) 0.03 07/23/16 04:00 Test 07/22/16 11:10 07/22/16 12:49 07/22/16 16:00 07/23/16 04:00 Prothrombin Time 11.2 SECONDS (9.0-12.0) Prothromb Time International Ratio 1.0 (0.9-1.1) Activated Partial Thromboplast Time 28.7 SECONDS (21.0-31.0) Partial Thromboplastin Ratio 1.1 Total Bilirubin 0.5 mg/dl (0.2-1) Direct Bilirubin < 0.1 mg/dl (0-0.2) Aspartate Amino Transf (AST/SGOT) 17 U/L (15-37) Alanine Aminotransferase (ALT/SGPT) 21 U/L (12-78) Alkaline Phosphatase 100 U/L (45-117) Total Protein 8.3 gm/dl (6.4-8.2) Albumin 3.2 gm/dl (3.4-5.0) Thyroid Stimulating Hormone (TSH) 6.660 uIu/ml (0.300-4.500) Urine Color DK YELLOW Urine Appearance CLOUDY (CLEAR) Urine pH 5.0 (4.5-7.5) Urine Specific [place] 1.022 (1.000-1.030) Urine Protein 2+ (NEG) Urine Glucose (UA) NEG (NEG) Urine Ketones TRACE (NEG) Urine Occult Blood 3+ (NEG) Urine Nitrite NEG (NEG) Urine Bilirubin NEG (NEG) Urine Urobilinogen NEG (NEG) Urine Leukocyte Esterase TRACE (NEG) Urine WBC (Auto) 10-30 /hpf (0-5) Urine RBC (Auto) >30 /hpf (0-4) Urine Hyaline Casts (Auto) 1-5 /lpf (0-5) Urine Epithelial Cells (Auto) 20-30 /lpf (0-5) Urine Bacteria (Auto) NEG (NEG) Urine Pathogenic Casts 1-5 GRANULAR CASTS /lpf (0) Urine Mucus PRESENT (NONE PRSENT) Urine Yeast (Auto) (NONE PRSENT) Urine Random Creatinine 210.0 mg/dl Urine Random Sodium 75 mEq/L Influenza Type A (RT-PCR) Neg for Influ A (NEG) Influenza Type B (RT-PCR) Neg for Influ B (NEG) White Blood Count 14.16 K/uL (4.8-10.8) Red Blood Count 4.46 M/uL (4.7-6.1) Hemoglobin 12.3 g/dL (14.0-18.0) Hematocrit 36.4 % (42-52) Mean Corpuscular Volume 81.6 fL (80-100) Mean Corpuscular Hemoglobin 27.6 pg (25-34) Mean Corpuscular Hemoglobin Concent 33.8 g/dl (32-36) Platelet Count 152 K/uL (130-400) Mean Platelet Volume 10.4 fL (7.4-10.4) Neutrophils (%) (Auto) 71.6 % Lymphocytes (%) (Auto) 13.2 % Monocytes (%) (Auto) 12.7 % Eosinophils (%) (Auto) 1.8 % Basophils (%) (Auto) 0.2 % Neutrophils # (Auto) 10.13 K/uL (1.4-6.5) Lymphocytes # (Auto) 1.87 K/uL (1.2-3.4) Monocytes # (Auto) 1.80 K/uL (0.11-0.59) Eosinophils # (Auto) 0.26 K/uL (0-0.5) Basophils # (Auto) 0.03 K/uL (0-0.2) RDW Standard Deviation 39.3 fL (36.4-46.3) RDW Coefficient of Variation 13.2 % (11.5-14.5) Immature Granulocyte % (Auto) 0.5 % Immature Granulocyte # (Auto) 0.07 K/uL (0.00-0.02) Anion Gap 8.0 mmol/L (3-11) Est Creatinine Clear Calc Drug Dose 30.0 ml/min Estimated GFR () 38.9 Estimated GFR (Non- 33.6 BUN/Creatinine Ratio 13.4 (10-20) Calcium Level 8.2 mg/dl (8.5-10.1) Magnesium Level 1.7 mg/dl (1.8-2.4) Random Vancomycin Level 12.6 mcg/ml Date/Time Source Procedure Growth Status 07/22/16 15:33 Blood Blood Culture Pending Received 07/22/16 14:35 Nasal MRSA DNA Surveillance Screen - Final Specimen Negative for MRSA by DNA Probe Complete 07/22/16 12:49 Urine , Clean Catch Urine Culture - Preliminary PIN-POINT GROWTH PRESENT, REINCUBATING. Resulted Last 24 Hours Test 07/22/16 11:10 07/22/16 12:49 07/22/16 16:00 07/23/16 04:00 White Blood Count 15.59 K/uL 14.16 K/uL Red Blood Count 5.13 M/uL 4.46 M/uL Hemoglobin 14.1 g/dL 12.3 g/dL Hematocrit 42.1 % 36.4 % Mean Corpuscular Volume 82.1 fL 81.6 fL Mean Corpuscular Hemoglobin 27.5 pg 27.6 pg Mean Corpuscular Hemoglobin Concent 33.5 g/dl 33.8 g/dl Platelet Count 205 K/uL 152 K/uL Mean Platelet Volume 10.8 fL 10.4 fL Neutrophils (%) (Auto) 74.8 % 71.6 % Lymphocytes (%) (Auto) 11.3 % 13.2 % Monocytes (%) (Auto) 11.2 % 12.7 % Eosinophils (%) (Auto) 1.6 % 1.8 % Basophils (%) (Auto) 0.3 % 0.2 % Neutrophils # (Auto) 11.67 K/uL 10.13 K/uL Lymphocytes # (Auto) 1.76 K/uL 1.87 K/uL Monocytes # (Auto) 1.74 K/uL 1.80 K/uL Eosinophils # (Auto) 0.25 K/uL 0.26 K/uL Basophils # (Auto) 0.04 K/uL 0.03 K/uL RDW Standard Deviation 39.6 fL 39.3 fL RDW Coefficient of Variation 13.2 % 13.2 % Immature Granulocyte % (Auto) 0.8 % 0.5 % Immature Granulocyte # (Auto) 0.13 K/uL 0.07 K/uL Prothrombin Time 11.2 SECONDS Prothromb Time International Ratio 1.0 Activated Partial Thromboplast Time 28.7 SECONDS Partial Thromboplastin Ratio 1.1 Sodium Level 138 mmol/L 140 mmol/L Potassium Level 4.4 mmol/L 4.3 mmol/L Chloride Level 106 mmol/L 110 mmol/L Carbon Dioxide Level 24 mmol/L 22 mmol/L Anion Gap 8.0 mmol/L 8.0 mmol/L Blood Urea Nitrogen 27 mg/dl 24 mg/dl Creatinine 2.20 mg/dl 1.80 mg/dl Est Creatinine Clear Calc Drug Dose 24.6 ml/min 30.0 ml/min Estimated GFR () 30.5 38.9 Estimated GFR (Non- 26.3 33.6 BUN/Creatinine Ratio 12.3 13.4 Random Glucose 186 mg/dl 120 mg/dl Calcium Level 8.6 mg/dl 8.2 mg/dl Total Bilirubin 0.5 mg/dl Direct Bilirubin < 0.1 mg/dl Aspartate Amino Transf (AST/SGOT) 17 U/L Alanine Aminotransferase (ALT/SGPT) 21 U/L Alkaline Phosphatase 100 U/L Total Protein 8.3 gm/dl Albumin 3.2 gm/dl Thyroid Stimulating Hormone (TSH) 6.660 uIu/ml Urine Color DK YELLOW Urine Appearance CLOUDY Urine pH 5.0 Urine Specific [place] 1.022 Urine Protein 2+ Urine Glucose (UA) NEG Urine Ketones TRACE Urine Occult Blood 3+ Urine Nitrite NEG Urine Bilirubin NEG Urine Urobilinogen NEG Urine Leukocyte Esterase TRACE Urine WBC (Auto) 10-30 /hpf Urine RBC (Auto) >30 /hpf Urine Hyaline Casts (Auto) 1-5 /lpf Urine Epithelial Cells (Auto) 20-30 /lpf Urine Bacteria (Auto) NEG Urine Pathogenic Casts 1-5 GRANULAR CASTS /lpf Urine Mucus PRESENT Urine Yeast (Auto) Urine Random Creatinine 210.0 mg/dl Urine Random Sodium 75 mEq/L Influenza Type A (RT-PCR) Neg for Influ A Influenza Type B (RT-PCR) Neg for Influ B Magnesium Level 1.7 mg/dl Random Vancomycin Level 12.6 mcg/ml Date/Time Source Procedure Growth Status 07/22/16 15:33 Blood Blood Culture Pending Received 07/22/16 15:25 Blood Blood Culture Pending Received 07/22/16 14:35 Nasal MRSA DNA Surveillance Screen - Final Specimen Negative for MRSA by DNA Probe Complete 07/22/16 12:49 Urine , Clean Catch Urine Culture Pending Received Assessment & Plan 86 yo M halfway resident presents with worsening weakness and confusion over past two weeks 2/2 RLL pneumonia 1. Metabolic encephalopathy 2/2 HCAP-improved clinically WRT fatigue and malaise. Coming from [facility] to cover broadly until blood cultures return. 2. AYLEEN in setting of CKD III- creat is 2.2 with baseline 1.4. Improved to 1.8 today. FeNa is 0.57% supporting prerenal azotemia likely 2/2 dehydration. Repeat PRP in am. 3. Leukocytosis 2/2 PNA-treatment per #1 and monitor daily CBC. Persistent but improved. 4. h/o heart valve replacement 5. Alzheimer's dementia-h/o problems with donepezil in the past; good day/ night cycles in hospital to avoid delirium 6. GERD-cont Zantac 7. HLP-cont Zocor 8. Hypothyroidism-cont Synthroid. TSH slightly elevated to 6.6, however, I would clear up the infection and then re-evaluate his symptoms as an outpatient prior to going up on his Synthroid. DVT proph-heparin DNR-per son who is at bedside on admission Dispo--to med/surg floor Spoke with son by phone and updated him on the plan. All questions were answered. [facility] Current Inpatient Medications: Current Inpatient Medications Medications (Trade) Dose Ordered Sig/Jose Route Start Time Stop Time Status Last Admin Dose Admin Heparin Sodium (Porcine) (Heparin Sq 5000 Unit/0.5ml) 5,000 unit Q8 SQ 07/22/16 22:00 08/21/16 21:59 07/23/16 06:08 5,000 UNIT Acetaminophen (Tylenol Tab) 650 mg Q4H PRN PO 07/22/16 13:30 08/21/16 13:29 Ondansetron HCl (Zofran Inj) 4 mg Q6H PRN IV 07/22/16 13:30 08/21/16 13:29 Polyethylene (Miralax Powder Packet) 17 gm DAILY PRN PO 07/22/16 13:30 08/21/16 13:29 Cefepime HCl (Consult) 1 ea UD PRN N/A 07/22/16 14:00 08/21/16 13:59 Levofloxacin (Consult) 1 ea UD PRN N/A 07/22/16 14:00 08/21/16 13:59 Escitalopram Oxalate (Lexapro Tab) 5 mg QAM PO 07/23/16 09:00 08/22/16 08:59 07/23/16 08:06 5 MG Levothyroxine Sodium (Synthroid Tab) 25 mcg DAILYBB PO 07/23/16 06:00 08/22/16 05:59 07/23/16 06:08 25 MCG Ranitidine HCl (zANTac TAB) 150 mg BID PO 07/22/16 21:00 08/21/16 20:59 07/23/16 08:06 150 MG Simvastatin 80 mg 80 mg QPM PO 07/22/16 21:00 08/21/16 20:59 07/22/16 20:05 80 MG Levofloxacin 750 mg/Prmx 150 ml @ 100 mls/hr Q48H IV 07/24/16 12:00 07/29/16 11:59 Cefepime HCl 2000 mg/Dextrose 112.5 ml @ 225 mls/hr Q24H IV 07/23/16 08:00 07/29/16 07:59 07/23/16 08:06 225 MLS/HR Magnesium Sulfate 1 gm/Prmx 100 ml @ 100 mls/hr Q1H IV 07/23/16 10:00 07/23/16 11:59 Sodium Chloride (Nss 1000ml) 1,000 ml @ 100 mls/hr Q10H IV 07/23/16 10:15 07/23/16 20:14 UNV
[2016-07-24] VITALS (7 sets, daily range): BP systolic 108–158; BP diastolic 57–96; PULSE 75–90; TEMP 36.5–37.2; O2SAT 92–95
[2016-07-24] MEDS: LEVOTHYROXINE 25 MCG TAB PO SCH (06:29)
[2016-07-24] MEDS: HEPARIN SOD 5000 UNIT/0.5 ML CARP SQ SCH ×3 (06:29→20:41)
[2016-07-24 06:49] LABS: HEMATOCRIT 34.5 % (42-52); MEAN CELL VOLUME 80.4 fL (80-100); MEAN CORPUSCULAR HGB CONC 33.6 g/dl (32-36); MEAN PLATELET VOLUME 10.3 fL (7.4-10.4); PLATELET COUNT 161 K/uL (130-400); RED BLOOD COUNT 4.29 M/uL (4.7-6.1); WHITE BLOOD COUNT 13.02 K/uL (4.8-10.8)
[2016-07-24 07:28] LABS: BUN/CREATININE RATIO 12.1 (10-20); CALCIUM 8.3 mg/dl (8.5-10.1); CREATININE 1.6 mg/dl (0.60-1.40); POTASSIUM 4.3 mmol/L (3.5-5.1)
[2016-07-24] MEDS: RANITIDINE HCL 150 MG TAB PO SCH ×2 (08:12→20:38)
[2016-07-24] MEDS: ESCITALOPRAM OXALATE 10 MG TAB PO SCH (08:12)
[2016-07-24] MEDS: CEFEPIME IV 2000 MG in DEXTROSE 5% 100ML IV SCH (08:16)
--- NOTE | 2016-07-24 10:29 | Progress Note ---
Medicine Progress Note Date & Time of Visit: July 24, 2016 at 10:16. Subjective 86 yo M retirement resident presents with worsening weakness and confusion over past two weeks 2/2 RLL pneumonia -pt appears fatigued today as he just woke up but otherwise is not ill-appearing -denies cough, fevers, chills, SOB, or pain overnight -ambulated >300 ft independently (lives at [facility]) -alert and oriented to self only-consistently with yesterday's exam. Objective Last 8 Hrs Date Time Temp Pulse Resp B/P Pulse Ox O2 Delivery O2 Flow Rate FiO2 07/24/16 08:07 36.7 77 18 119/76 94 Room Air Physical Exam: GEN: WNWD, in no acute distress, alert and oriented to self only-no delirium or inattention observed. HEENT: NC/AT, normal sclerae CARDIO: reg rate, S1/2 heard without m/g/r LUNGS: CTA bilaterally, no crackles, rales or wheezes, good diaphragmatic excursion ABD: soft, non-tender, non-distended, no rebound or guarding EXTREMITY: no LE swelling or edema, extremities are warm and well-perfused SKIN: warm and dry Laboratory Results: 07/24/16 06:26 07/24/16 06:26 Test 07/22/16 11:10 07/22/16 12:49 07/22/16 16:00 07/23/16 04:00 Prothrombin Time 11.2 SECONDS (9.0-12.0) Prothromb Time International Ratio 1.0 (0.9-1.1) Activated Partial Thromboplast Time 28.7 SECONDS (21.0-31.0) Partial Thromboplastin Ratio 1.1 Total Bilirubin 0.5 mg/dl (0.2-1) Direct Bilirubin < 0.1 mg/dl (0-0.2) Aspartate Amino Transf (AST/SGOT) 17 U/L (15-37) Alanine Aminotransferase (ALT/SGPT) 21 U/L (12-78) Alkaline Phosphatase 100 U/L (45-117) Total Protein 8.3 gm/dl (6.4-8.2) Albumin 3.2 gm/dl (3.4-5.0) Thyroid Stimulating Hormone (TSH) 6.660 uIu/ml (0.300-4.500) Urine Color DK YELLOW Urine Appearance CLOUDY (CLEAR) Urine pH 5.0 (4.5-7.5) Urine Specific [place] 1.022 (1.000-1.030) Urine Protein 2+ (NEG) Urine Glucose (UA) NEG (NEG) Urine Ketones TRACE (NEG) Urine Occult Blood 3+ (NEG) Urine Nitrite NEG (NEG) Urine Bilirubin NEG (NEG) Urine Urobilinogen NEG (NEG) Urine Leukocyte Esterase TRACE (NEG) Urine WBC (Auto) 10-30 /hpf (0-5) Urine RBC (Auto) >30 /hpf (0-4) Urine Hyaline Casts (Auto) 1-5 /lpf (0-5) Urine Epithelial Cells (Auto) 20-30 /lpf (0-5) Urine Bacteria (Auto) NEG (NEG) Urine Pathogenic Casts 1-5 GRANULAR CASTS /lpf (0) Urine Mucus PRESENT (NONE PRSENT) Urine Yeast (Auto) (NONE PRSENT) Urine Random Creatinine 210.0 mg/dl Urine Random Sodium 75 mEq/L Influenza Type A (RT-PCR) Neg for Influ A (NEG) Influenza Type B (RT-PCR) Neg for Influ B (NEG) Immature Granulocyte % (Auto) 0.5 % White Blood Count 14.16 K/uL (4.8-10.8) Red Blood Count 4.46 M/uL (4.7-6.1) Hemoglobin 12.3 g/dL (14.0-18.0) Hematocrit 36.4 % (42-52) Mean Corpuscular Volume 81.6 fL (80-100) Mean Corpuscular Hemoglobin 27.6 pg (25-34) Mean Corpuscular Hemoglobin Concent 33.8 g/dl (32-36) Platelet Count 152 K/uL (130-400) Mean Platelet Volume 10.4 fL (7.4-10.4) Neutrophils (%) (Auto) 71.6 % Lymphocytes (%) (Auto) 13.2 % Monocytes (%) (Auto) 12.7 % Eosinophils (%) (Auto) 1.8 % Basophils (%) (Auto) 0.2 % Neutrophils # (Auto) 10.13 K/uL (1.4-6.5) Lymphocytes # (Auto) 1.87 K/uL (1.2-3.4) Monocytes # (Auto) 1.80 K/uL (0.11-0.59) Eosinophils # (Auto) 0.26 K/uL (0-0.5) Basophils # (Auto) 0.03 K/uL (0-0.2) Immature Granulocyte # (Auto) 0.07 K/uL (0.00-0.02) Magnesium Level 1.7 mg/dl (1.8-2.4) Random Vancomycin Level 12.6 mcg/ml Test 07/24/16 06:26 Red Blood Count 4.29 M/uL (4.7-6.1) Mean Corpuscular Volume 80.4 fL (80-100) Mean Corpuscular Hemoglobin 27.0 pg (25-34) Mean Corpuscular Hemoglobin Concent 33.6 g/dl (32-36) RDW Standard Deviation 37.8 fL (36.4-46.3) RDW Coefficient of Variation 13.1 % (11.5-14.5) Mean Platelet Volume 10.3 fL (7.4-10.4) Anion Gap 6.0 mmol/L (3-11) Est Creatinine Clear Calc Drug Dose 33.8 ml/min Estimated GFR () 44.9 Estimated GFR (Non- 38.7 BUN/Creatinine Ratio 12.1 (10-20) Calcium Level 8.3 mg/dl (8.5-10.1) Date/Time Source Procedure Growth Status 07/22/16 15:33 Blood Blood Culture - Preliminary NO GROWTH TO DATE. Resulted 07/22/16 14:35 Nasal MRSA DNA Surveillance Screen - Final Specimen Negative for MRSA by DNA Probe Complete 07/22/16 12:49 Urine , Clean Catch Urine Culture - Final THREE TYPES OF ORGANISMS PRESENT, ALL... Complete Last 24 Hours Test 07/24/16 06:26 White Blood Count 13.02 K/uL Red Blood Count 4.29 M/uL Hemoglobin 11.6 g/dL Hematocrit 34.5 % Mean Corpuscular Volume 80.4 fL Mean Corpuscular Hemoglobin 27.0 pg Mean Corpuscular Hemoglobin Concent 33.6 g/dl RDW Standard Deviation 37.8 fL RDW Coefficient of Variation 13.1 % Platelet Count 161 K/uL Mean Platelet Volume 10.3 fL Sodium Level 138 mmol/L Potassium Level 4.3 mmol/L Chloride Level 108 mmol/L Carbon Dioxide Level 24 mmol/L Anion Gap 6.0 mmol/L Blood Urea Nitrogen 19 mg/dl Creatinine 1.60 mg/dl Est Creatinine Clear Calc Drug Dose 33.8 ml/min Estimated GFR () 44.9 Estimated GFR (Non- 38.7 BUN/Creatinine Ratio 12.1 Random Glucose 108 mg/dl Calcium Level 8.3 mg/dl Assessment & Plan 86 yo M retirement resident presents with worsening weakness and confusion over past two weeks 2/2 RLL pneumonia 1. Metabolic encephalopathy 2/2 HCAP-resolved, appears to be at baseline mental status. Infection is controlled and cultures are negative to date. Will taper abx to one agent now and monitor overnight for decompensation. If appears well in am, will send back to [facility]. 2. AYLEEN in setting of CKD III- creat is 2.2 with baseline 1.4. Improved to 1.6 today. FeNa is 0.57% supporting prerenal azotemia likely 2/2 dehydration. Repeat PRP in am. Cont to encourage PO intake and hydration with water. 3. Leukocytosis 2/2 PNA-treatment per #1 and monitor daily CBC. Persistent but improved. 4. h/o heart valve replacement 5. Alzheimer's dementia-h/o problems with donepezil in the past; good day/ night cycles in hospital to avoid delirium, stable exam and no behavioral issues. 6. GERD-cont Zantac 7. HLP-cont Zocor 8. Hypothyroidism-cont Synthroid. TSH slightly elevated to 6.6, however, I would clear up the infection and then re-evaluate his symptoms as an outpatient prior to going up on his Synthroid. Per son, this may have been recently started so would prefer Dr. Gross to adjust. Will order B12, iron studies, folate and vit D to assess for other causes of fatigue although suspect fatigue 2/2 infection at this time. DVT proph-heparin DNR-per son who is at bedside on admission Dispo--to [facility] in am. DO Óscar Betancourt Hospitalist Current Inpatient Medications: Current Inpatient Medications Medications (Trade) Dose Ordered Sig/Jose Route Start Time Stop Time Status Last Admin Dose Admin Heparin Sodium (Porcine) (Heparin Sq 5000 Unit/0.5ml) 5,000 unit Q8 SQ 07/22/16 22:00 08/21/16 21:59 07/24/16 06:29 5,000 UNIT Acetaminophen (Tylenol Tab) 650 mg Q4H PRN PO 07/22/16 13:30 08/21/16 13:29 Ondansetron HCl (Zofran Inj) 4 mg Q6H PRN IV 07/22/16 13:30 08/21/16 13:29 Polyethylene (Miralax Powder Packet) 17 gm DAILY PRN PO 07/22/16 13:30 08/21/16 13:29 Cefepime HCl (Consult) 1 ea UD PRN N/A 07/22/16 14:00 08/21/16 13:59 Levofloxacin (Consult) 1 ea UD PRN N/A 07/22/16 14:00 08/21/16 13:59 Escitalopram Oxalate (Lexapro Tab) 5 mg QAM PO 07/23/16 09:00 08/22/16 08:59 07/24/16 08:12 5 MG Levothyroxine Sodium (Synthroid Tab) 25 mcg DAILYBB PO 07/23/16 06:00 08/22/16 05:59 07/24/16 06:29 25 MCG Ranitidine HCl (zANTac TAB) 150 mg BID PO 07/22/16 21:00 08/21/16 20:59 07/24/16 08:12 150 MG Simvastatin 80 mg 80 mg QPM PO 07/22/16 21:00 08/21/16 20:59 07/23/16 21:17 80 MG Cefepime HCl/ Dextrose (Maxipime IV/D5 100ml) 112.5 ml @ 225 mls/hr Q12@0800,2000 IV 07/23/16 20:00 07/30/16 19:59 07/24/16 08:16 225 MLS/HR Levofloxacin (Levaquin Tab) 750 mg Q2D@1100 PO 07/24/16 11:00 07/29/16 10:59
[2016-07-24] MEDS ORDERED: LEVOFLOXACIN 750 MG TAB PO SCH (11:00)
[2016-07-24] MEDS ORDERED: LEVOFLOXACIN / D5W 750 MG in PREMIXED IN D5W 150 ML IV SCH (12:00)
[2016-07-24] MEDS: AMOXICILLIN/CLAVULANATE TAB 500 MG TAB PO SCH ×2 (14:05→17:00)
[2016-07-24] MEDS ORDERED: FLUCONAZOLE 100 MG TAB PO ONE (18:42)
[2016-07-24] MEDS: SIMVASTATIN 80 MG TAB PO SCH (20:38)
[2016-07-25] VITALS (11 sets, daily range): BP systolic 110–134; BP diastolic 66–80; PULSE 77–92; TEMP 36.6–37; O2SAT 91–98; Ht 175.3 cm; Wt 77.4 kg
[2016-07-25] MEDS: LEVOTHYROXINE 50 MCG TAB PO SCH (06:04)
[2016-07-25] MEDS: HEPARIN SOD 5000 UNIT/0.5 ML CARP SQ SCH ×3 (06:07→20:33)
[2016-07-25 06:16] LABS: MEAN CELL VOLUME 80.5 fL (80-100); MEAN CORPUSCULAR HEMOGLOBIN 27.5 pg (25-34); MEAN CORPUSCULAR HGB CONC 34.2 g/dl (32-36); MEAN PLATELET VOLUME 10.7 fL (7.4-10.4); PLATELET COUNT 175 K/uL (130-400); RED BLOOD COUNT 4.47 M/uL (4.7-6.1); WHITE BLOOD COUNT 14.84 K/uL (4.8-10.8)
[2016-07-25 06:43] LABS: CREATININE 1.6 mg/dl (0.60-1.40)
[2016-07-25 06:48] LABS: FERRITIN 411.8 ng/ml (8.0-388.0)
[2016-07-25 06:50] LABS: ESTIMATED AVERAGE GLUCOSE 157 mg/dl; HA1C FLAG Normal (Normal)
[2016-07-25] MEDS: ESCITALOPRAM OXALATE 10 MG TAB PO SCH (08:10)
[2016-07-25] MEDS: RANITIDINE HCL 150 MG TAB PO SCH ×2 (08:10→20:31)
[2016-07-25] MEDS: AMOXICILLIN/CLAVULANATE TAB 500 MG TAB PO SCH ×3 (08:10→17:52)
[2016-07-25] MEDS: FLUCONAZOLE 50 MG TAB PO SCH (08:10)
[2016-07-25] MEDS: ERGOCALCIFEROL 50,000 INTER.UNIT CAP PO SCH (10:38)
[2016-07-25] MEDS ORDERED: DFL50 PO (11:32)
[2016-07-25] MEDS ORDERED: SYN50 PO (11:32)
[2016-07-25] MEDS ORDERED: AMOX1TAB42 PO (11:32)
[2016-07-25] MEDS ORDERED: ERGO500011 PO (11:32)
--- NOTE | 2016-07-25 11:41 | Discharge Instructions ---
Discharge Instructions Date of Service July 25, 2016. Admission Reason for Admission: Altered Mental Status Discharge Discharge Diagnosis / Problem: Metabolic encephalopathy, HCAP, Hypothyroidism, vit D def Discharge Goals Goal(s): Prevent Disease Progression Activity Recommendations Activity Limitations: per Instructions/Follow-up section . Instructions / Follow-Up Instructions / Follow-Up Please take all medications as instructed. Your vitamin D was very low, and you will need a high dose supplement for the next 6 weeks. This will need to be rechecked. You also had some evidence of underactive thyroid; as a result, your Synthroid was increased to 50mcg daily. You will need to have repeat bloodwork in 6 weeks. Cont to take the Synthroid first thing in the morning without food or other medications. You have been diagnosed with a pneumonia. Please obtain a repeat chest xray in 4-6 weeks to ensure complete resolution. You will need a follow-up with your primary care physician within one week of discharge as a follow-up from this hospitalization. It was a pleasure taking care of you! Call if you have any questions or problems. You can reach a [facility] hospitalist on duty at [facility] 24 hours a day by calling [phone]. Take care of yourself. Xenia Welch DO [facility] Hospitalist Current Hospital Diet Patient's current hospital diet: AHA Diet (Heart Healthy) Discharge Diet Recommended Diet: AHA Diet (Heart Healthy) Procedures Procedures Performed: None. Pending Studies Studies pending at discharge: yes List of pending studies: Final blood cultures-preliminary reading is negative Laboratory Results Hemoglobin A1c Test 07/25/16 05:18 Range/Units Estimated Average Glucose 157 mg/dl Hemoglobin A1c 7.1 H 4.5-5.6 % Medical Emergencies . Who to Call and When: Medical Emergencies: If at any time you feel your situation is an emergency, please call 911 immediately. . Non-Emergent Contact Non-Emergency issues call your: Primary Care Provider . . "Provider Documentation" section prepared by Xenia Welch. . VTE Core Measure Inpt VTE Proph given/why not?: Unfractionated heparin SQ
--- NOTE | 2016-07-25 11:44 | Discharge Summary ---
Discharge Summary Date of Service July 25, 2016. Discharge Summary Admission Date: July 22, 2016 at 12:57 Discharge Date: July 25, 2016 Discharge Disposition: Personal care Principal Diagnosis: Metabolic encephalopathy 2/2 HCAP AYLEEN in setting of CKD III-resolved Leukocytosis 2/2 infection h/o heart valve replacement Alzheimer's dementia GERD Hyperlipidemia Hypothyroidism Oral Candidiasis Vitamin D deficiency Procedures: None. Vaccinations: None. Consultations: None. Pending Studies/Follow-Up: see instructions below. Medication Reconciliation New Medications: Amoxicillin & Pot Clavulanate (Amoxicillin/Clavulanate P) 1 Tab Tab 500 MG PO TIDM for 4 Days, #12 TAB 0 Refills Ergocalciferol (Vitamin D 18702 Unit) 50,000 Unit Cap 20330 INTERUNIT PO Q4D@0900 for 42 Days, #11 CAP Take one cap every 4 days for 6 weeks. Fluconazole (Fluconazole) 50 Mg Tab 50 MG PO QAM for 5 Days, #5 TAB Levothyroxine Sodium (Synthroid) 50 Mcg Tab 50 MCG PO DAILYBB for 30 Days, #30 TAB Continued Medications: Escitalopram Oxalate (Lexapro) 5 Mg Tab 5 MG PO QAM, TAB Ranitidine (Zantac) 150 Mg Tab 150 MG PO BID, TAB AM & PM Simvastatin (Zocor) 80 Mg Tab 80 MG PO QPM, TAB Discontinued Medications: Levothyroxine Sodium (Synthroid) 25 Mcg Tab 25 MCG PO QAM, TAB TAKE AT 6AM IN THE MORNING ON AN EMPTY STOMACH BEFORE TAKING FOOD OR OTHER MEDS Meloxicam (Mobic) 15 Mg Tab 12.5 MG PO DAILY, TAB 1/2 OF A 15MG TAB Nystatin (Nystatin Suspension) 1 Ml Susp 5 ML PO QID, ML Admission Information HPI (per Admitting provider): 86 yo M presents to ER from [facility] for increased weakness, lethargy, increased fatigue for the past two weeks. Workup revealed a RLL pneumonia and the patient reports some productive cough at least initially but denies any shortness of breath, chest pain, fevers, chills, headaches, dysuria or other urinary symptoms, abdominal pain or other pain, nausea, vomiting, or diarrhea. The history is given by the patient helped by his son who is at bedside. The son states that he just moved into [facility] in Apr and is doing well with it , but had recently been started on Lexapro for some depression. Otherwise no other new/changed medications and no other symptoms. At baseline, the patient ambulates without an assistive device. Physical Exam (per Admitting): GEN: WNWD, in no acute distress, alert and appropriate, no conversational dyspnea or tachypnea. He is [place] and doesn't have hearing aids in limiting exam. HEENT: NC/AT, PERRL, normal sclerae and conjunctivae, mucous membranes are moist , pharynx nonacute CARDIO: reg rate, S1/2 heard without m/g/r LUNGS: CTA bilaterally, no crackles, rales or wheezes, good diaphragmatic excursion except has diminished breath sounds at the right base ABD: soft, non-tender, non-distended, no rebound or guarding, +BS EXTREMITY: RP and DP palpable 2+ bilat, no LE swelling or edema, extremities are warm and well-perfused, small shallow pressure ulcers on soles of feet bilaterally NEURO: CN 2-12 grossly intact, sensation intact throughout, no gross focal deficits, has some obvious short term memory loss MUSC: 5/5 strength throughout, no focal deficits SKIN: warm and dry and wounds as above. Hospital Course 86 yo M halfway resident presents with worsening weakness and confusion over past two weeks 2/2 RLL pneumonia 1. Metabolic encephalopathy 2/2 HCAP-resolved, appears to be at baseline mental status. Infection is controlled and cultures are negative to date. Will taper abx to one agent now and monitor overnight for decompensation. If appears well in am, will send back to [facility]. 2. AYLEEN in setting of CKD III- creat is 2.2 with baseline 1.4. Improved to 1.6 today. FeNa is 0.57% supporting prerenal azotemia likely 2/2 dehydration. Repeat PRP in am. Cont to encourage PO intake and hydration with water. 3. Leukocytosis 2/2 PNA-treatment per #1 and monitor daily CBC. Persistent but improved. 4. h/o heart valve replacement 5. Alzheimer's dementia-h/o problems with donepezil in the past; good day/ night cycles in hospital to avoid delirium, stable exam and no behavioral issues. 6. GERD-cont Zantac 7. HLP-cont Zocor 8. Hypothyroidism-cont Synthroid. TSH slightly elevated to 6.6, however, I would clear up the infection and then re-evaluate his symptoms as an outpatient prior to going up on his Synthroid. Per son, this may have been recently started so would prefer Dr. Gross to adjust. Will order B12, iron studies, folate and vit D to assess for other causes of fatigue although suspect fatigue 2/2 infection at this time. DVT proph-heparin DNR-per son who is at bedside on admission Dispo--to [facility] in am. [facility] Total time spent on discharge = 60 minutes This includes examination of the patient, discharge planning, medication reconciliation, and communication with other providers. Discharge Instructions Discharge Instructions Date of Service July 25, 2016. Admission Reason for Admission: Altered Mental Status Discharge Discharge Diagnosis / Problem: Metabolic encephalopathy, HCAP, Hypothyroidism, vit D def Discharge Goals Goal(s): Prevent Disease Progression Activity Recommendations Activity Limitations: per Instructions/Follow-up section . Instructions / Follow-Up Instructions / Follow-Up Please take all medications as instructed. Your vitamin D was very low, and you will need a high dose supplement for the next 6 weeks. This will need to be rechecked. You also had some evidence of underactive thyroid; as a result, your Synthroid was increased to 50mcg daily. You will need to have repeat bloodwork in 6 weeks. Cont to take the Synthroid first thing in the morning without food or other medications. You have been diagnosed with a pneumonia. Please obtain a repeat chest xray in 4-6 weeks to ensure complete resolution. You will need a follow-up with your primary care physician within one week of discharge as a follow-up from this hospitalization. It was a pleasure taking care of you! Call if you have any questions or problems. You can reach a [facility] Hospitalist on duty at [facility] 24 hours a day by calling [phone]. Take care of yourself. Xenia Welch DO [facility] Additional Copies To [facility]
--- NOTE | 2016-07-25 13:57 | DIAGNOSTIC IMAGING REPORT ---
CT HEAD WITHOUT CONTRAST (CT) CLINICAL HISTORY: Acute change in mental status. Suspected acute stroke. COMPARISON STUDY: 07/22/2016 TECHNIQUE: Axial CT of the brain is performed from the vertex to the skull base. IV contrast was not administered for this examination. CT DOSE: 729.78 mGycm FINDINGS: No intra or extra-axial mass lesions are visualized. There is no CT evidence of acute cortical infarction. There is no evidence of midline shift. There is no acute hemorrhage. No calvarial fractures are visualized. There are moderate white matter hypodensities likely on a small vessel basis. There is no evidence of pathologic ventricular dilatation. There is no evidence of acute sinusitis IMPRESSION: No acute intracranial findings Electronically signed by: Jorge Guerra M.D. 07/25/2016 1:56 PM Dictated Date/Time: 07/25/2016 1:54 PM
[2016-07-25 14:48] LABS: HEMATOCRIT 37.6 % (42-52); MEAN CORPUSCULAR HEMOGLOBIN 27.4 pg (25-34); MEAN PLATELET VOLUME 10.8 fL (7.4-10.4); PLATELET COUNT 197 K/uL (130-400); RED BLOOD COUNT 4.64 M/uL (4.7-6.1); WHITE BLOOD COUNT 14.18 K/uL (4.8-10.8)
[2016-07-25 14:48] LABS: ISTAT ARTERIAL BLOOD GAS HCO3 17 meq/L (19-24); ISTAT ARTERIAL BLOOD GAS PCO2 26 mmHg (35-46); ISTAT ARTERIAL BLOOD GAS PO2 61 mmHg (80-95); ISTAT ARTERIAL BLOOD GAS pH 7.44 (7.35-7.45); ISTAT CARBON DIOXIDE 18 mEq/l (24-31); ISTAT DELIVERY SYSTEM Room Air; ISTAT SITE R Radial
[2016-07-25 14:55] LABS: MEAN CORPUSCULAR HGB CONC 33.8 g/dl (32-36)
[2016-07-25 14:59] LABS: ALB/GLOB RATIO 0.6 (0.9-2); BUN/CREATININE RATIO 10.5 (10-20); CALCIUM 8.2 mg/dl (8.5-10.1); CREATININE 1.7 mg/dl (0.60-1.40); MAGNESIUM 2.2 mg/dl (1.8-2.4); POTASSIUM 4.2 mmol/L (3.5-5.1)
[2016-07-25 15:20] LABS: CKMB/CK RATIO 3.9 (0-3.0)
--- NOTE | 2016-07-25 16:12 | Neurology Consultation ---
Neurology Consultation Date of Consultation: July 25, 2016. Attending Physician: Xenia Welch DO [facility] Reason for Consultation: acute MS change r/o stroke History of Present Illness Source: patient, family Brodie is a 86 year old male with a H Alzheimer's dementia, GERD, confusion, DL, AYLEEN presents to ED from [facility] on 07/22 for increased weakness, lethargy, increased fatigue for the past two weeks. He was found to have a RLL pneumonia. His son states he was moved to [facility] in Apr was doing well even had a lady friend, but had started to participate less with activities and was started on Lexapro. His MS has waxed and weaned over the past few days. Today he was going to be discharged and his son was in the room. Physical therapy came to work with him and he became limp and lethargic. Stroke alert was called at 1335 and he was taken down for a CT head. His son thinks the whole episode may have lasted about 2 hours and then he started to return to his baseline. During the event he was very slow to respond and was slow with moving his arms and legs purposefully but he would do whatever they asked him to do. currently he is lying in bed and states he feels ok. denies pain, swallowing difficulty, one sided numbness, tingling, weakness, N, V. bowel or bladder issues, he has no history of stroke or seizure disorder. Past Medical/Surgical History Medical Problems: (1) AYLEEN (acute kidney injury) Status: Acute (2) Pneumonia Status: Acute Social History Smokeless Tobacco Use: No Alcohol Use: none Drug Use: none Marital Status: , Housing Status: lives with family, [employer] Occupation Status: retired Allergies Coded Allergies: Donepezil (Unverified Adverse Reaction, Unknown, CONFUSION, 12/13/14) Ezetimibe (Unverified Adverse Reaction, Unknown, UNKNOWN, 12/13/14) Current Inpatient Medications Current Inpatient Medications Medications (Trade) Dose Ordered Sig/Jose Route Start Time Stop Time Status Last Admin Dose Admin Heparin Sodium (Porcine) (Heparin Sq 5000 Unit/0.5ml) 5,000 unit Q8 SQ 07/22/16 22:00 08/21/16 21:59 07/25/16 06:07 5,000 UNIT Acetaminophen (Tylenol Tab) 650 mg Q4H PRN PO 07/22/16 13:30 08/21/16 13:29 Ondansetron HCl (Zofran Inj) 4 mg Q6H PRN IV 07/22/16 13:30 08/21/16 13:29 Polyethylene (Miralax Powder Packet) 17 gm DAILY PRN PO 07/22/16 13:30 08/21/16 13:29 Escitalopram Oxalate (Lexapro Tab) 5 mg QAM PO 07/23/16 09:00 08/22/16 08:59 07/25/16 08:10 5 MG Ranitidine HCl (zANTac TAB) 150 mg BID PO 07/22/16 21:00 08/21/16 20:59 07/25/16 08:10 150 MG Simvastatin (Zocor Tab) 80 mg QPM PO 07/22/16 21:00 08/21/16 20:59 07/24/16 20:38 80 MG Amoxicillin/ Clavulanate Potassium (Augmentin Tab) 500 mg TIDM PO 07/24/16 12:00 07/31/16 11:59 07/25/16 11:59 500 MG Fluconazole (Diflucan Tab) 50 mg QAM PO 07/25/16 09:00 07/31/16 08:59 07/25/16 08:10 50 MG Levothyroxine Sodium (Synthroid Tab) 50 mcg DAILYBB PO 07/25/16 06:30 08/24/16 06:29 07/25/16 06:04 50 MCG Ergocalciferol (Vitamin D Cap) 50,000 interunit Q4D@0900 PO 07/25/16 10:00 09/07/16 09:01 07/25/16 10:38 50,000 INTERUNIT Physical Exam Vital Signs (Past 24 Hrs): Date Time Temp Pulse Resp B/P Pulse Ox O2 Delivery O2 Flow Rate FiO2 07/25/16 15:19 94 Room Air 07/25/16 14:16 79 22 110/71 92 Room Air 07/25/16 14:00 88 22 120/79 92 Room Air 07/25/16 13:34 36.6 79 16 119/73 98 Room Air 07/25/16 13:09 92 91 07/25/16 12:19 37.0 80 18 93 Room Air 07/25/16 08:02 37.0 80 18 118/68 93 Room Air 07/25/16 08:00 94 Room Air 07/25/16 00:00 Room Air 07/24/16 23:02 37.1 86 18 147/87 93 Room Air 07/24/16 17:08 94 Room Air 07/24/16 15:42 36.5 84 18 158/96 93 Room Air Physical Exam: Constitutional: appearance nourished, pale Ears, Nose, Mouth and Throat: mucous membranes moist, no injection and skin normal, eyes normal Cardiovascular: normal S-1 and S-2 and regular rate and rhythm Respiratory: clear to auscultation (CTA) and no rales, rhonchi or wheeze Musculoskeletal: no peripheral edema and good distal pulses, bilaterally hammer toes Skin: no stigmata of neurocutaneous disease noted and normal and intact Eyes: extraocular muscles intact (EOMI) and pupils equal, round and reactive to light (PERRL) NEUROLOGIC EXAMINATION: Mental status: Alert and interactive Oriented when given the choice of [facility] or [facility], he doesn' t know the president or what year it is. he can follow stick out tongue, close eyes point to ceiling the thought he was 79 years old Oriented to person, and knows his son and daughter in law in the room Speech fluent with no evidence of aphasia Cranial Nerves smile eye brow raise symmetric Reflexes: Deep tendon reflexes were symmetrical and graded 2/5. Plantar responses was flexor Sensory: intact to cool touch and vibration Coordination: finger to nose without bipass Gait/Stance: Posture lying in bed Motor: Negative for pronator drift of out stretched arms with eyes closed. Strength: biceps triceps hand table inspector bilaterally 5/5, hip flex plantar flex ext 5/5 bilaterally Laboratory Results Past 24 Hours: 07/25/16 13:59 07/25/16 13:59 Test 07/25/16 05:18 07/25/16 13:59 07/25/16 14:07 07/25/16 14:36 Estimated Average Glucose 157 mg/dl Hemoglobin A1c 7.1 % (4.5-5.6) Iron Level 50 mcg/dl (35-175) Total Iron Binding Capacity 165 mcg/dl (250-450) Ferritin 411.8 ng/ml (8.0-388.0) Vitamin B12 Level 285 pg/mL (211-911) 25-Hydroxy Vitamin D Total 7.1 ng/ml (30-100) Folate 8.51 ng/mL (>5.38) Red Blood Count 4.64 M/uL (4.7-6.1) Mean Corpuscular Volume 81.0 fL (80-100) Mean Corpuscular Hemoglobin 27.4 pg (25-34) Mean Corpuscular Hemoglobin Concent 33.8 g/dl (32-36) RDW Standard Deviation 39.9 fL (36.4-46.3) RDW Coefficient of Variation 13.5 % (11.5-14.5) Mean Platelet Volume 10.8 fL (7.4-10.4) Anion Gap 6.0 mmol/L (3-11) Est Creatinine Clear Calc Drug Dose 31.8 ml/min Estimated GFR () 41.7 Estimated GFR (Non- 36.0 BUN/Creatinine Ratio 10.5 (10-20) Calcium Level 8.2 mg/dl (8.5-10.1) Magnesium Level 2.2 mg/dl (1.8-2.4) Total Bilirubin 0.3 mg/dl (0.2-1) Aspartate Amino Transf (AST/SGOT) 23 U/L (15-37) Alanine Aminotransferase (ALT/SGPT) 18 U/L (12-78) Alkaline Phosphatase 97 U/L (45-117) Total Creatine Kinase 49 U/L (39-308) Creatine Kinase MB 1.9 ng/ml (0.5-3.6) Troponin I 0.020 ng/ml (0-0.045) Total Protein 7.0 gm/dl (6.4-8.2) Albumin 2.6 gm/dl (3.4-5.0) Globulin 4.4 gm/dl (2.5-4.0) Albumin/Globulin Ratio 0.6 (0.9-2) Bedside Glucose 173 mg/dl (70-99) Blood Gas Sample Site R Radial Bedside Blood Gas pH (LAB) 7.44 (7.35-7.45) Bedside Blood Gas pCO2 (LAB) 26 mmHg (35-46) Bedside Blood Gas pO2 (LAB) 61 mmHg (80-95) Bedside Blood Gas HCO3 (LAB) 17 meq/L (19-24) Bedside Blood Gas Total CO2 18 mEq/l (24-31) Bedside Blood Gas Base Excess (LAB) -7.0 meq/L (-9-1.8) Bedside Blood Gas O2 Saturation 92.0 % (90-95) Mio Test NA Oxygen Delivery Device Room Air Test 07/25/16 14:54 Creatine Kinase MB Ratio (0-3.0) Imaging CT head- no acute finding Impression 86 year old female with MS change back to baseline Plan 1. MRI without contrast ordered 2. EEG ordered 3. add aspirin 81 mg if no contra indication 4. orthostatics 5. blood cultures pending 6. further input after labs and images resulted I have discussed above patient with Regine Mejia, neurology Pt was not available. I discussed case with Dr Welch, and TIFFANIE East. Exam was nonlocalizing with signs of cognitive dysfunction. Suspect a global event such as something toxic, metabolic infectious. Given pt pt age and underlying moderate dementia, provided EEG is nonfocal and MRI shows no acute event with not work-up further. If MRI shows infarct, etc, then would tailor vascular work-up on what would most likely be treatable if identified. Will see pt tomorrow.DICK Mejia MD
--- NOTE | 2016-07-25 16:48 | DIAGNOSTIC IMAGING REPORT ---
ORBIT RADIOGRAPHS 3 VIEWS HISTORY: pre-MRI screening. COMPARISON: None. FINDINGS: There are no radiopaque foreign bodies identified within the orbits. Small metallic left prefrontal particle within the subcutaneous tissues IMPRESSION: No radiopaque foreign bodies identified within the orbits. Electronically signed by: Joe Lubin M.D. 07/25/2016 4:47 PM Dictated Date/Time: 07/25/2016 4:45 PM
--- NOTE | 2016-07-25 17:23 | DIAGNOSTIC IMAGING REPORT ---
Brain MRI WITHOUT CONTRAST HISTORY: Mental status change AMS concern for stroke TECHNIQUE: Multiplanar multisequence MRI of the brain was performed without the use of contrast. COMPARISON STUDY: CT brain dated 07/25/2016 FINDINGS: There are no areas of restricted diffusion to suggest acute infarction. The midline structures are intact. The paranasal sinuses are clear. The mastoid air cells are clear. The ventricles and sulci are within normal limits for age. There is no mass, hematoma, midline shift. The major vascular flow-voids at the skull base are well maintained. Considerable findings of atrophy and chronic small vessel change. Metallic artifact the left frontal region from a subcutaneous metallic particle. This does not compromise the study to a significant degree IMPRESSION: No acute intracranial abnormality. Considerable chronic small vessel change. Atrophy. Electronically signed by: Joe Lubin M.D. 07/25/2016 5:21 PM Dictated Date/Time: 07/25/2016 5:20 PM
--- NOTE | 2016-07-25 17:55 | DIAGNOSTIC IMAGING REPORT ---
BILATERAL LOWER EXTREMITY VENOUS DOPPLER HISTORY: Pain. Edema. encephalopathy with persistent WBC COMPARISON STUDY: None. FINDINGS: There is normal compressibility, flow, and augmentation within the bilateral lower extremity deep venous systems. IMPRESSION: No DVT within the right or left lower extremity. Electronically signed by: Joe Lubin M.D. 07/25/2016 5:53 PM Dictated Date/Time: 07/25/2016 5:53 PM
[2016-07-25] MEDS: SIMVASTATIN 80 MG TAB PO SCH (20:32)
--- NOTE | 2016-07-25 21:00 | Progress Note ---
Medicine Progress Note Date & Time of Visit: July 25, 2016 at 20:45. Subjective 86 yo M initially seen this morning before noon. He was looking fine and was alert but oriented to person only, which was the case historically for him. He appeared stable clinically and was preparing to go home. I called his son, Matt who agreed with that plan and thought he looked great this morning. He agreed to come and take him back over to [facility]. At noon the nurse gave him his Augmentin which he swallowed wihtout issue Then PT arrived but couldn't get him to sit up and he was rather unresponsive and lethargic. I was contacted to come back by and saw the son in the room who had been there for about 15 minutes. The patient was lying in bed lethargic with his eyes closed. He was moving his mouth but not using words, only unintellibile sounds. He was able to follow some instructions to move his arms and legs, and no focality was seen on exam. A stroke alert was called and a repeat CT head was negative. [facility] evaluated him and believed he was encephalopathic. Neurology was consulted from [facility] and other considerations were in place to cause this including BL LE us to rule out DVT, brain MRI, EKG, CMP, cardiac panel, repeat CBC, Mag, thiamine and repeat blood cultures (initially negative this admission). Workup was negative except for a mild leukocytosis, which was present and trending down. Blood cultures are pending. The family was at the beside the entire time and everything was explained to them. The daughter is a PA and verbalized understanding of the plan. Will keep him overnight for monitoring of his mental status. The patient slowly came back to baseline mental status and didn't remember anything that had happened, and didn't know what was going on. Objective Last 8 Hrs Date Time Temp Pulse Resp B/P Pulse Ox O2 Delivery O2 Flow Rate FiO2 07/25/16 20:41 82 134/79 92 122/66 89 121/75 07/25/16 15:47 36.6 77 18 118/70 93 Room Air 07/25/16 15:19 94 Room Air 07/25/16 14:16 79 22 110/71 92 Room Air 07/25/16 14:00 88 22 120/79 92 Room Air 07/25/16 13:34 36.6 79 16 119/73 98 Room Air 07/25/16 13:09 92 91 Physical Exam: GEN: WNWD, in no acute distress, alert and oriented to self only-no delirium or inattention observed. HEENT: NC/AT, normal sclerae CARDIO: reg rate, S1/2 heard without m/g/r LUNGS: CTA bilaterally, no crackles, rales or wheezes, good diaphragmatic excursion ABD: soft, non-tender, non-distended, no rebound or guarding EXTREMITY: no LE swelling or edema, extremities are warm and well-perfused SKIN: warm and dry Laboratory Results: 07/25/16 13:59 07/25/16 13:59 Test 07/25/16 05:18 07/25/16 13:59 07/25/16 14:07 07/25/16 14:36 Estimated Average Glucose 157 mg/dl Hemoglobin A1c 7.1 % (4.5-5.6) Iron Level 50 mcg/dl (35-175) Total Iron Binding Capacity 165 mcg/dl (250-450) Ferritin 411.8 ng/ml (8.0-388.0) Vitamin B12 Level 285 pg/mL (211-911) 25-Hydroxy Vitamin D Total 7.1 ng/ml (30-100) Folate 8.51 ng/mL (>5.38) Red Blood Count 4.64 M/uL (4.7-6.1) Mean Corpuscular Volume 81.0 fL (80-100) Mean Corpuscular Hemoglobin 27.4 pg (25-34) Mean Corpuscular Hemoglobin Concent 33.8 g/dl (32-36) RDW Standard Deviation 39.9 fL (36.4-46.3) RDW Coefficient of Variation 13.5 % (11.5-14.5) Mean Platelet Volume 10.8 fL (7.4-10.4) Anion Gap 6.0 mmol/L (3-11) Est Creatinine Clear Calc Drug Dose 31.8 ml/min Estimated GFR () 41.7 Estimated GFR (Non- 36.0 BUN/Creatinine Ratio 10.5 (10-20) Calcium Level 8.2 mg/dl (8.5-10.1) Magnesium Level 2.2 mg/dl (1.8-2.4) Total Bilirubin 0.3 mg/dl (0.2-1) Aspartate Amino Transf (AST/SGOT) 23 U/L (15-37) Alanine Aminotransferase (ALT/SGPT) 18 U/L (12-78) Alkaline Phosphatase 97 U/L (45-117) Total Creatine Kinase 49 U/L (39-308) Creatine Kinase MB 1.9 ng/ml (0.5-3.6) Troponin I 0.020 ng/ml (0-0.045) Total Protein 7.0 gm/dl (6.4-8.2) Albumin 2.6 gm/dl (3.4-5.0) Globulin 4.4 gm/dl (2.5-4.0) Albumin/Globulin Ratio 0.6 (0.9-2) Bedside Glucose 173 mg/dl (70-99) Blood Gas Sample Site R Radial Bedside Blood Gas pH (LAB) 7.44 (7.35-7.45) Bedside Blood Gas pCO2 (LAB) 26 mmHg (35-46) Bedside Blood Gas pO2 (LAB) 61 mmHg (80-95) Bedside Blood Gas HCO3 (LAB) 17 meq/L (19-24) Bedside Blood Gas Total CO2 18 mEq/l (24-31) Bedside Blood Gas Base Excess (LAB) -7.0 meq/L (-9-1.8) Bedside Blood Gas O2 Saturation 92.0 % (90-95) Mio Test NA Oxygen Delivery Device Room Air Test 07/25/16 14:54 Creatine Kinase MB Ratio (0-3.0) Last 24 Hours Test 07/25/16 05:18 07/25/16 13:34 07/25/16 13:59 07/25/16 14:07 White Blood Count 14.84 K/uL 14.18 K/uL Red Blood Count 4.47 M/uL 4.64 M/uL Hemoglobin 12.3 g/dL 12.7 g/dL Hematocrit 36.0 % 37.6 % Mean Corpuscular Volume 80.5 fL 81.0 fL Mean Corpuscular Hemoglobin 27.5 pg 27.4 pg Mean Corpuscular Hemoglobin Concent 34.2 g/dl 33.8 g/dl RDW Standard Deviation 38.5 fL 39.9 fL RDW Coefficient of Variation 13.2 % 13.5 % Platelet Count 175 K/uL 197 K/uL Mean Platelet Volume 10.7 fL 10.8 fL Creatinine 1.60 mg/dl 1.70 mg/dl Est Creatinine Clear Calc Drug Dose 33.8 ml/min 31.8 ml/min Estimated GFR () 44.9 41.7 Estimated GFR (Non- 38.7 36.0 Estimated Average Glucose 157 mg/dl Hemoglobin A1c 7.1 % Iron Level 50 mcg/dl Total Iron Binding Capacity 165 mcg/dl Ferritin 411.8 ng/ml Vitamin B12 Level 285 pg/mL 25-Hydroxy Vitamin D Total 7.1 ng/ml Folate 8.51 ng/mL Bedside Glucose 207 mg/dl 173 mg/dl Sodium Level 134 mmol/L Potassium Level 4.2 mmol/L Chloride Level 104 mmol/L Carbon Dioxide Level 24 mmol/L Anion Gap 6.0 mmol/L Blood Urea Nitrogen 18 mg/dl BUN/Creatinine Ratio 10.5 Random Glucose 178 mg/dl Calcium Level 8.2 mg/dl Magnesium Level 2.2 mg/dl Total Bilirubin 0.3 mg/dl Aspartate Amino Transf (AST/SGOT) 23 U/L Alanine Aminotransferase (ALT/SGPT) 18 U/L Alkaline Phosphatase 97 U/L Total Creatine Kinase 49 U/L Creatine Kinase MB 1.9 ng/ml Creatine Kinase MB Ratio 3.9 Troponin I 0.020 ng/ml Total Protein 7.0 gm/dl Albumin 2.6 gm/dl Globulin 4.4 gm/dl Albumin/Globulin Ratio 0.6 Test 07/25/16 14:36 07/25/16 14:54 Blood Gas Sample Site R Radial Bedside Blood Gas pH (LAB) 7.44 Bedside Blood Gas pCO2 (LAB) 26 mmHg Bedside Blood Gas pO2 (LAB) 61 mmHg Bedside Blood Gas HCO3 (LAB) 17 meq/L Bedside Blood Gas Total CO2 18 mEq/l Bedside Blood Gas Base Excess (LAB) -7.0 meq/L Bedside Blood Gas O2 Saturation 92.0 % Mio Test NA Oxygen Delivery Device Room Air Creatine Kinase MB Ratio Date/Time Source Procedure Growth Status 07/25/16 15:21 Blood Blood Culture Pending Received 07/25/16 15:15 Blood Blood Culture Pending Received Diagnostic Imaging: Brain MRI WITHOUT CONTRAST HISTORY: Mental status change AMS concern for stroke TECHNIQUE: Multiplanar multisequence MRI of the brain was performed without the use of contrast. COMPARISON STUDY: CT brain dated 07/25/2016 FINDINGS: There are no areas of restricted diffusion to suggest acute infarction. The midline structures are intact. The paranasal sinuses are clear. The mastoid air cells are clear. The ventricles and sulci are within normal limits for age. There is no mass, hematoma, midline shift. The major vascular flow-voids at the skull base are well maintained. Considerable findings of atrophy and chronic small vessel change. Metallic artifact the left frontal region from a subcutaneous metallic particle. This does not compromise the study to a significant degree IMPRESSION: No acute intracranial abnormality. Considerable chronic small vessel change. Atrophy. BILATERAL LOWER EXTREMITY VENOUS DOPPLER HISTORY: Pain. Edema. encephalopathy with persistent WBC COMPARISON STUDY: None. FINDINGS: There is normal compressibility, flow, and augmentation within the bilateral lower extremity deep venous systems. IMPRESSION: No DVT within the right or left lower extremity. Assessment & Plan 86 yo M [facility] resident presents with worsening weakness and confusion over past two weeks 2/2 RLL pneumonia 1. Metabolic encephalopathy 2/2 HCAP-resolved, appears to be at baseline mental status. Infection is controlled and cultures are negative to date. Cont Augmentin. Of note, plantar calluses which were debrided yesterday by wound care provider drained some pus and culturing out coag neg staph. Per Dr. Marie there was only some superficial drainage and he did not feel the need to put him on abx at the time. Blood cultures were redrawn, however, patient is afebrile and not septic and these wounds are not causing a systemic illness. arben Avalos pain from the wound or debridement of the wound may be contributing? Will cont to monitor. 2. AYLEEN in setting of CKD III- creat is 2.2 with baseline 1.4. Improved to 1.6 today. FeNa is 0.57% supporting prerenal azotemia likely 2/2 dehydration. Repeat PRP in am. Cont to encourage PO intake and hydration with water. After repeat labwork returned at 1.7 creat, in light of waxing/waning mental status, decided to give him some more fluids. 3. Leukocytosis 2/2 PNA-treatment per #1 and monitor daily CBC. Persistent but improved. 4. h/o heart valve replacement 5. Alzheimer's dementia-h/o problems with donepezil in the past; good day/ night cycles in hospital to avoid delirium, stable exam and no behavioral issues. 6. GERD-cont Zantac 7. HLP-cont Zocor 8. Hypothyroidism-cont Synthroid. TSH slightly elevated to 6.6, however, I would clear up the infection and then re-evaluate his symptoms as an outpatient prior to going up on his Synthroid. Per son, this may have been recently started so would prefer Dr. Gross to adjust. Will order B12, iron studies, folate and vit D to assess for other causes of fatigue although suspect fatigue 2/2 infection at this time. DVT proph-heparin DNR-per son who is at bedside on admission Dispo--to [facility] in am. DO Óscar Betancourt Hospitalist Consultants: None. Procedures: None. Vaccinations: None. Current Inpatient Medications: Current Inpatient Medications Medications (Trade) Dose Ordered Sig/Jose Route Start Time Stop Time Status Last Admin Dose Admin Heparin Sodium (Porcine) (Heparin Sq 5000 Unit/0.5ml) 5,000 unit Q8 SQ 07/22/16 22:00 08/21/16 21:59 07/25/16 20:33 5,000 UNIT Acetaminophen (Tylenol Tab) 650 mg Q4H PRN PO 07/22/16 13:30 08/21/16 13:29 Ondansetron HCl (Zofran Inj) 4 mg Q6H PRN IV 07/22/16 13:30 08/21/16 13:29 Polyethylene (Miralax Powder Packet) 17 gm DAILY PRN PO 07/22/16 13:30 08/21/16 13:29 Escitalopram Oxalate (Lexapro Tab) 5 mg QAM PO 07/23/16 09:00 08/22/16 08:59 07/25/16 08:10 5 MG Ranitidine HCl (zANTac TAB) 150 mg BID PO 07/22/16 21:00 08/21/16 20:59 07/25/16 20:31 150 MG Simvastatin (Zocor Tab) 80 mg QPM PO 07/22/16 21:00 08/21/16 20:59 07/25/16 20:32 80 MG Amoxicillin/ Clavulanate Potassium (Augmentin Tab) 500 mg TIDM PO 07/24/16 12:00 07/31/16 11:59 07/25/16 17:52 500 MG Fluconazole (Diflucan Tab) 50 mg QAM PO 07/25/16 09:00 07/31/16 08:59 07/25/16 08:10 50 MG Levothyroxine Sodium (Synthroid Tab) 50 mcg DAILYBB PO 07/25/16 06:30 08/24/16 06:29 07/25/16 06:04 50 MCG Ergocalciferol (Vitamin D Cap) 50,000 interunit Q4D@0900 PO 07/25/16 10:00 09/07/16 09:01 07/25/16 10:38 50,000 INTERUNIT
[2016-07-25] MEDS: SODIUM CHLORIDE 0.9% 1000ML 1,000 ML IV SCH (21:39)
[2016-07-26 00:21] VITALS: BP 129/69; PULSE 87; TEMP 37.1; O2SAT 92
[2016-07-26 01:33] VITALS: O2SAT 94
[2016-07-26] MEDS: SODIUM CHLORIDE 0.9% 1000ML 1,000 ML IV SCH (05:50)
[2016-07-26] MEDS: LEVOTHYROXINE 50 MCG TAB PO SCH (05:51)
[2016-07-26] MEDS: HEPARIN SOD 5000 UNIT/0.5 ML CARP SQ SCH ×3 (05:53→21:11)
[2016-07-26 07:41] VITALS: BP 121/77; PULSE 84; TEMP 36.5; O2SAT 93
[2016-07-26 08:00] VITALS: O2SAT 93
[2016-07-26] MEDS: AMOXICILLIN/CLAVULANATE TAB 500 MG TAB PO SCH ×3 (08:02→18:11)
[2016-07-26] MEDS: RANITIDINE HCL 150 MG TAB PO SCH ×2 (08:03→21:07)
[2016-07-26] MEDS: ESCITALOPRAM OXALATE 10 MG TAB PO SCH (08:03)
[2016-07-26] MEDS: FLUCONAZOLE 50 MG TAB PO SCH (08:03)
[2016-07-26 10:26] LABS: BUN/CREATININE RATIO 9.8 (10-20); CALCIUM 8.2 mg/dl (8.5-10.1); CREATININE 1.7 mg/dl (0.60-1.40); MAGNESIUM 2.2 mg/dl (1.8-2.4); POTASSIUM 4.1 mmol/L (3.5-5.1)
--- NOTE | 2016-07-26 12:05 | Neurology Progress Notes ---
Neurology Progress Note Date of Service July 26, 2016. Genevieve Calloway is a 86 year old male with a PMH Alzheimer's dementia, GERD, confusion, DL, AYLEEN presents to ED from [facility] on 07/22 for increased weakness, lethargy, increased fatigue for the past two weeks. He was found to have a RLL pneumonia. His son states he was moved to [facility] in Apr was doing well even had a lady friend, but had started to participate less with activities and was started on Lexapro. His MS has waxed and weaned over the past few days. Today he was going to be discharged and his son was in the room. Physical therapy came to work with him and he became limp and lethargic. Stroke alert was called at 1335 and he was taken down for a CT head. His son thinks the whole episode may have lasted about 2 hours and then he started to return to his baseline. During the event he was very slow to respond and was slow with moving his arms and legs purposefully but he would do whatever they asked him to do. currently he is lying in bed and states he feels ok. denies pain, swallowing difficulty, one sided numbness, tingling, weakness, N, V. bowel or bladder issues, he has no history of stroke or seizure disorder Today his son is in the room and states he seems at his baseline for NS but physically he still seem fatigued. He is currently sleeping but easily awakes with voice command. He was up moving around in his room all morning according to his son. It is unusual for him to sleep during the day. Objective Date Time Temp Pulse Resp B/P Pulse Ox O2 Delivery O2 Flow Rate FiO2 07/26/16 08:00 93 Room Air 07/26/16 07:41 36.5 84 18 121/77 93 07/26/16 01:33 94 Room Air 07/26/16 00:21 37.1 87 18 129/69 92 Room Air 07/25/16 20:41 82 134/79 92 122/66 89 121/75 07/25/16 15:47 36.6 77 18 118/70 93 Room Air 07/25/16 15:19 94 Room Air 07/25/16 14:16 79 22 110/71 92 Room Air 07/25/16 14:00 88 22 120/79 92 Room Air 07/25/16 13:34 36.6 79 16 119/73 98 Room Air 07/25/16 13:09 92 91 07/25/16 12:19 37.0 80 18 93 Room Air Last 24 Hours Test 07/25/16 13:34 07/25/16 13:59 07/25/16 14:07 07/25/16 14:36 Bedside Glucose 207 mg/dl 173 mg/dl White Blood Count 14.18 K/uL Red Blood Count 4.64 M/uL Hemoglobin 12.7 g/dL Hematocrit 37.6 % Mean Corpuscular Volume 81.0 fL Mean Corpuscular Hemoglobin 27.4 pg Mean Corpuscular Hemoglobin Concent 33.8 g/dl RDW Standard Deviation 39.9 fL RDW Coefficient of Variation 13.5 % Platelet Count 197 K/uL Mean Platelet Volume 10.8 fL Sodium Level 134 mmol/L Potassium Level 4.2 mmol/L Chloride Level 104 mmol/L Carbon Dioxide Level 24 mmol/L Anion Gap 6.0 mmol/L Blood Urea Nitrogen 18 mg/dl Creatinine 1.70 mg/dl Est Creatinine Clear Calc Drug Dose 31.8 ml/min Estimated GFR () 41.7 Estimated GFR (Non- 36.0 BUN/Creatinine Ratio 10.5 Random Glucose 178 mg/dl Calcium Level 8.2 mg/dl Magnesium Level 2.2 mg/dl Total Bilirubin 0.3 mg/dl Aspartate Amino Transf (AST/SGOT) 23 U/L Alanine Aminotransferase (ALT/SGPT) 18 U/L Alkaline Phosphatase 97 U/L Total Creatine Kinase 49 U/L Creatine Kinase MB 1.9 ng/ml Creatine Kinase MB Ratio 3.9 Troponin I 0.020 ng/ml Total Protein 7.0 gm/dl Albumin 2.6 gm/dl Globulin 4.4 gm/dl Albumin/Globulin Ratio 0.6 Blood Gas Sample Site R Radial Bedside Blood Gas pH (LAB) 7.44 Bedside Blood Gas pCO2 (LAB) 26 mmHg Bedside Blood Gas pO2 (LAB) 61 mmHg Bedside Blood Gas HCO3 (LAB) 17 meq/L Bedside Blood Gas Total CO2 18 mEq/l Bedside Blood Gas Base Excess (LAB) -7.0 meq/L Bedside Blood Gas O2 Saturation 92.0 % Mio Test NA Oxygen Delivery Device Room Air Test 07/25/16 14:54 07/26/16 09:42 Creatine Kinase MB Ratio Sodium Level 137 mmol/L Potassium Level 4.1 mmol/L Chloride Level 106 mmol/L Carbon Dioxide Level 24 mmol/L Anion Gap 7.0 mmol/L Blood Urea Nitrogen 17 mg/dl Creatinine 1.70 mg/dl Est Creatinine Clear Calc Drug Dose 31.8 ml/min Estimated GFR () 41.7 Estimated GFR (Non- 36.0 BUN/Creatinine Ratio 9.8 Random Glucose 128 mg/dl Calcium Level 8.2 mg/dl Magnesium Level 2.2 mg/dl Imaging: MRI brain without- No acute intracranial abnormality. Considerable chronic small vessel change. Atrophy. Exam: Physical Exam: Constitutional: appearance nourished, healthy and normal, very [place] Ears, Nose, Mouth and Throat: mucous membranes moist, no injection and skin normal, eyes normal Cardiovascular: normal S-1 and S-2 and regular rate and rhythm Respiratory: clear to auscultation (CTA) and no rales, rhonchi or wheeze Musculoskeletal: no peripheral edema and good distal pulses Skin: no stigmata of neurocutaneous disease noted and normal and intact Eyes: extraocular muscles intact (EOMI) and pupils equal, round and reactive to light (PERRL) NEUROLOGIC EXAMINATION: Mental status: Alert and interactive Oriented to hospital, knows his son and his name Oriented to person Speech fluent with no evidence of aphasia Cranial Nerves smile eye brow raise symmetric, tongue midline Sensory: light touch Coordination: finger to nose with no bi pass Gait/Stance: Posture lying in bed Strength: biceps, triceps hand academic support specialist 5/5 bilaterally, hip flex plantar flex ext 5/5 bilaterally Current Inpatient Medications Medications (Trade) Dose Ordered Sig/[facility] Route Start Time Stop Time Status Last Admin Dose Admin Heparin Sodium (Porcine) (Heparin Sq 5000 Unit/0.5ml) 5,000 unit Q8 SQ 07/22/16 22:00 08/21/16 21:59 07/26/16 05:53 5,000 UNIT Acetaminophen (Tylenol Tab) 650 mg Q4H PRN PO 07/22/16 13:30 08/21/16 13:29 Ondansetron HCl (Zofran Inj) 4 mg Q6H PRN IV 07/22/16 13:30 08/21/16 13:29 Polyethylene (Miralax Powder Packet) 17 gm DAILY PRN PO 07/22/16 13:30 08/21/16 13:29 Escitalopram Oxalate (Lexapro Tab) 5 mg QAM PO 07/23/16 09:00 08/22/16 08:59 07/26/16 08:03 5 MG Ranitidine HCl (zANTac TAB) 150 mg BID PO 07/22/16 21:00 08/21/16 20:59 07/26/16 08:03 150 MG Simvastatin (Zocor Tab) 80 mg QPM PO 07/22/16 21:00 08/21/16 20:59 07/25/16 20:32 80 MG Amoxicillin/ Clavulanate Potassium (Augmentin Tab) 500 mg TIDM PO 07/24/16 12:00 07/31/16 11:59 07/26/16 08:02 500 MG Fluconazole (Diflucan Tab) 50 mg QAM PO 07/25/16 09:00 07/31/16 08:59 07/26/16 08:03 50 MG Levothyroxine Sodium (Synthroid Tab) 50 mcg DAILYBB PO 07/25/16 06:30 08/24/16 06:29 07/26/16 05:51 50 MCG Ergocalciferol 24483 interunit 50,000 interunit Q4D@0900 PO 07/25/16 10:00 09/07/16 09:01 07/25/16 10:38 50,000 INTERUNIT Sodium Chloride (Nss 1000ml) 1,000 ml @ 125 mls/hr Q8H IV 07/25/16 21:00 07/26/16 12:59 07/26/16 05:50 125 MLS/HR Impression 86 year old female with MS change back to baseline Plan 1. MRI without contrast no acute findings 2. EEG pending read 3. add aspirin 81 mg if no contra indication 4. orthostatics -no orthostatic blood pressures 5. blood cultures pending 6. correct Vit D level, TSH-hypothyroid appears under treated- synthroid increased from 25 mcg to 50 mcg 7. no source of unresponsiveness clearly found 8. continue to treat pneumonia 9. ok from neurology perspective to return in [facility] once medically stable I have discussed above patient with Regine Mejia, neurology Pt seen and examined, awake, alert, disoriented, moderate word finding diff, mild flattening of left NLF, othersie nonfocal. Impression, delirium superimposed on dementia. See prior note. will sign off, DICK Mejia MD
--- NOTE | 2016-07-26 13:41 | EEG Procedure Note ---
EEG Procedure Note Date of Service July 26, 2016. Start / End Times Start Time: 4:29 AM End Time: 4:49 AM Referring Physician Xenia Clemons History This is a 86-year-old female with altered mental status. EEG for further evaluation of possible seizure etiology. Home Medication List Scheduled Amoxicillin & Pot Clavulanate (Amoxicillin/Clavulanate P), 500 MG PO TIDM Ergocalciferol (Vitamin D 79022 Unit), 50,000 INTERUNIT PO Q4D@0900 Escitalopram Oxalate (Lexapro), 5 MG PO QAM Fluconazole (Fluconazole), 50 MG PO QAM Levothyroxine Sodium (Synthroid), 50 MCG PO DAILYBB Ranitidine (Zantac), 150 MG PO BID Simvastatin (Zocor), 80 MG PO QPM Inpatient Medication List Current Inpatient Medications Medications (Trade) Dose Ordered Sig/Jose Route Start Time Stop Time Status Last Admin Dose Admin Heparin Sodium (Porcine) (Heparin Sq 5000 Unit/0.5ml) 5,000 unit Q8 SQ 07/22/16 22:00 08/21/16 21:59 07/26/16 05:53 5,000 UNIT Acetaminophen (Tylenol Tab) 650 mg Q4H PRN PO 07/22/16 13:30 08/21/16 13:29 Ondansetron HCl (Zofran Inj) 4 mg Q6H PRN IV 07/22/16 13:30 08/21/16 13:29 Polyethylene (Miralax Powder Packet) 17 gm DAILY PRN PO 07/22/16 13:30 08/21/16 13:29 Escitalopram Oxalate (Lexapro Tab) 5 mg QAM PO 07/23/16 09:00 08/22/16 08:59 07/26/16 08:03 5 MG Ranitidine HCl (zANTac TAB) 150 mg BID PO 07/22/16 21:00 08/21/16 20:59 07/26/16 08:03 150 MG Amoxicillin/ Clavulanate Potassium (Augmentin Tab) 500 mg TIDM PO 07/24/16 12:00 07/31/16 11:59 07/26/16 13:36 500 MG Fluconazole (Diflucan Tab) 50 mg QAM PO 07/25/16 09:00 07/31/16 08:59 5/19/17 08:03 50 MG Levothyroxine Sodium (Synthroid Tab) 50 mcg DAILYBB PO 07/25/16 06:30 08/24/16 06:29 07/26/16 05:51 50 MCG Ergocalciferol (Vitamin D Cap) 50,000 interunit Q4D@0900 PO 07/25/16 10:00 09/07/16 09:01 07/25/16 10:38 50,000 INTERUNIT Description This is a 21 electrode EEG with a single channel dedicated to limited EKG. The electrodes were placed in accordance with the International 10-20 system. At the start of this recording the patient was and reported altered mental status. Background was poorly organized with a poorly formed anterior to posterior gradient. Background was composed of symmetric moderate amplitude predominantly 7 Hz theta frequencies with intermixed alpha frequencies. Hyperventilation was not done. Photic stimulation at various frequencies did not produce any abnormalities. Drowsiness was indicated by loss of muscle artifact and slowing of the background rhythm. There was no sleep transients. Interpretation This is an abnormal routine EEG secondary to mild background disorganization and slowing. There was no electrographic seizures or epileptiform discharges. Clinical Correlation This EEG indicates a mild encephalopathy of nonspecific etiology.
[2016-07-26 14:54] VITALS: BP 122/75; PULSE 77; TEMP 36.6; O2SAT 93
--- NOTE | 2016-07-26 15:36 | CONSULTATION REPORT ---
DATE OF CONSULTATION: 07/24/2016 CHIEF COMPLAINT: Callus formation both feet. HISTORY OF PRESENT ILLNESS: The patient was recently admitted to [facility] 2 days prior for the management of a pneumonia with associated weakness and lethargy for the past 2 weeks. It was noted that the patient had callus formations with questionable ulcerations on the plantar surface of both feet. The patient states he has had problems with his feet for some time but does not recall when he developed any active ulcerations or drainage from these sites. The patient denies any increased pain in the area, although they are tender at times. The patient currently denies any fevers, chills, night sweats, chest pain or shortness of breath. The patient denies any other systemic complaints. PAST MEDICAL HISTORY: Positive for Alzheimer's disease, GERD, hyperlipidemia. PAST SURGICAL HISTORY: Valve replacement. MEDICATIONS: Were noted in the nursing notes and were reviewed. ALLERGIES: DONEPEZIL AND EZETIMIBE. REVIEW OF SYSTEMS: Ten systems were reviewed and positive findings were noted in the chief complaint and history of present illness. PHYSICAL EXAMINATION: GENERAL: The patient is currently lying in a hospital bed in no acute distress, alert and cooperative throughout the examination. VITAL SIGNS: Reviewed and found to be unremarkable. The patient is afebrile. HEENT: Pupils equal and reactive to light. Sclerae clear. NECK: Supple. CHEST: Heart and lungs clear to auscultation. EXTREMITIES: Reveal the presence of 2 areas of callus formation on the plantar surface of both the right and left feet. There is currently no active drainage, periwound erythema, or edema noted. No tenderness or fluctuance present to palpation. Pulses are +2 bilaterally equal. Range of motion is intact. NEUROLOGIC: The patient is alert and oriented x2. No focal deficits noted. IMPRESSION: Callus formation plantar surface of the right and left foot. PLAN: At this time, debridement was indicated. With the patient's permission and after the application of topical Xylocaine 4%, the sites on both feet were debrided of callus which then deroofed underlying area of slough, and purulence drainage to be noted. There was only approximately 1-2 mL present in both sites. This was performed with a #5 curette. No significant bleeding occurred. Both sites will be dressed subsequently with Aquacel AG and gauze. The sites were cultured, antibiotic therapy was held until reevaluation of culture results. The patient currently is on Augmentin for his pneumonia. This represented a nonexcisional debridement of less than 20 square cm. The patient will continue to be monitored during hospitalization and evaluated on an outpatient basis at discharge. Dressings will be changed daily.
--- NOTE | 2016-07-26 18:26 | Progress Note ---
Medicine Progress Note Date & Time of Visit: July 26, 2016 at 13:00. Subjective 86 yo M senior living resident presents with worsening weakness and confusion over past two weeks 2/2 RLL pneumonia -denies any symptoms at this time -tolerating PO -denies pain, shortness of breath Objective Last 8 Hrs Date Time Temp Pulse Resp B/P Pulse Ox O2 Delivery O2 Flow Rate FiO2 07/26/16 14:54 36.6 77 18 122/75 93 Physical Exam: GEN: WNWD, in no acute distress, alert and appropriate. Was easily awoken from sleep but noted to be fatigued. HEENT: NC/AT, normal sclerae, MMM. Tongue with whitish plaque on the L side CARDIO: reg rate, S1/2 heard without m/g/r LUNGS: CTA bilaterally, no crackles, rales or wheezes, good diaphragmatic excursion ABD: soft, non-tender, non-distended, no rebound or guarding EXTREMITY: no LE swelling or edema, extremities are warm and well-perfused NEURO: sensation and strength were normal throughout, pt was easily following instructions and speaking clearly SKIN: warm and dry and bilateral plantar wounds that are covered by a clean dry dressing. Laboratory Results: Last 24 Hours Test 07/26/16 09:42 Sodium Level 137 mmol/L Potassium Level 4.1 mmol/L Chloride Level 106 mmol/L Carbon Dioxide Level 24 mmol/L Anion Gap 7.0 mmol/L Blood Urea Nitrogen 17 mg/dl Creatinine 1.70 mg/dl Est Creatinine Clear Calc Drug Dose 31.8 ml/min Estimated GFR () 41.7 Estimated GFR (Non- 36.0 BUN/Creatinine Ratio 9.8 Random Glucose 128 mg/dl Calcium Level 8.2 mg/dl Magnesium Level 2.2 mg/dl Diagnostic Imaging: Brain MRI WITHOUT CONTRAST HISTORY: Mental status change AMS concern for stroke TECHNIQUE: Multiplanar multisequence MRI of the brain was performed without the use of contrast. COMPARISON STUDY: CT brain dated 07/25/2016 FINDINGS: There are no areas of restricted diffusion to suggest acute infarction. The midline structures are intact. The paranasal sinuses are clear. The mastoid air cells are clear. The ventricles and sulci are within normal limits for age. There is no mass, hematoma, midline shift. The major vascular flow-voids at the skull base are well maintained. Considerable findings of atrophy and chronic small vessel change. Metallic artifact the left frontal region from a subcutaneous metallic particle. This does not compromise the study to a significant degree IMPRESSION: No acute intracranial abnormality. Considerable chronic small vessel change. Atrophy. Assessment & Plan 86 yo M senior living resident presents with worsening weakness and confusion over past two weeks 2/2 RLL pneumonia 1. Metabolic encephalopathy: Multifactorial etiology in setting of hypothyroidism, pulmonary and thrush infections, vit D deficiency, and dementia -he continues to wax and wane but appears to be at baseline mental status today. Daughter is at the bedside and she agrees. Infections are controlled and cultures are negative to date. Cont Augmentin/Fluconazole/vit D supplementation and higher dose of Synthroid. Of note, plantar calluses which were debrided by wound care provider drained some pus and culturing out coag neg staph. No abx indicated. Blood cultures were redrawn, however, patient is afebrile and not septic and these wounds are not causing a systemic illness. MRI brain was unremarkable, EKG and cardiac panel negative. No other obvious causes at this time. EEG is consistent with metabolic encephalopathy. Appreciate neuro recs prior to sending him home tomorrow. 2. AYLEEN in setting of CKD III- resolved to baseline and stable. 3. HCAP 2/2 suspected gram negative bacteria-initially treated with Cefepime and Levaquin but transitioned to Augmentin with no clinical decline. 4. Leukocytosis 2/2 PNA-treatment per #1 and monitor daily CBC. Persistent but improved. 5. h/o heart valve replacement 6. Alzheimer's dementia-h/o problems with donepezil in the past; good day/ night cycles in hospital to avoid delirium, stable exam and no behavioral issues. 7. GERD-cont Zantac 8. HLP-cont Zocor 9. Hypothyroidism-cont Synthroid. TSH slightly elevated to 6.6, however, I would clear up the infection and then re-evaluate his symptoms as an outpatient prior to going up on his Synthroid. Per son, this may have been recently started so would prefer Dr. Gross to adjust. Will order B12, iron studies, folate and vit D to assess for other causes of fatigue although suspect fatigue 2/2 infection at this time. DVT proph-heparin DNR-per son who is POA Dispo--to [facility] in am if mental status does not decline. Xenia Welch DO [facility] Hospitalist Consultants: Neuro Vaccinations: None. Current Inpatient Medications: Current Inpatient Medications Medications (Trade) Dose Ordered Sig/Jose Route Start Time Stop Time Status Last Admin Dose Admin Heparin Sodium (Porcine) (Heparin Sq 5000 Unit/0.5ml) 5,000 unit Q8 SQ 07/22/16 22:00 08/21/16 21:59 07/26/16 05:53 5,000 UNIT Acetaminophen (Tylenol Tab) 650 mg Q4H PRN PO 07/22/16 13:30 08/21/16 13:29 Ondansetron HCl (Zofran Inj) 4 mg Q6H PRN IV 07/22/16 13:30 08/21/16 13:29 Polyethylene (Miralax Powder Packet) 17 gm DAILY PRN PO 07/22/16 13:30 08/21/16 13:29 Escitalopram Oxalate (Lexapro Tab) 5 mg QAM PO 07/23/16 09:00 08/22/16 08:59 07/26/16 08:03 5 MG Ranitidine HCl (zANTac TAB) 150 mg BID PO 07/22/16 21:00 08/21/16 20:59 07/26/16 08:03 150 MG Amoxicillin/ Clavulanate Potassium (Augmentin Tab) 500 mg TIDM PO 07/24/16 12:00 07/31/16 11:59 07/26/16 13:36 500 MG Fluconazole (Diflucan Tab) 50 mg QAM PO 07/25/16 09:00 07/31/16 08:59 07/26/16 08:03 50 MG Levothyroxine Sodium (Synthroid Tab) 50 mcg DAILYBB PO 07/25/16 06:30 08/24/16 06:29 07/26/16 05:51 50 MCG Ergocalciferol (Vitamin D Cap) 50,000 interunit Q4D@0900 PO 07/25/16 10:00 09/07/16 09:01 07/25/16 10:38 50,000 INTERUNIT
[2016-07-27] VITALS (11 sets, daily range): BP systolic 91–127; BP diastolic 54–86; PULSE 78–109; TEMP 36.4–36.9; O2SAT 90–96
[2016-07-27] MEDS: LEVOTHYROXINE 50 MCG TAB PO SCH (05:31)
[2016-07-27] MEDS: HEPARIN SOD 5000 UNIT/0.5 ML CARP SQ SCH ×3 (05:33→21:42)
[2016-07-27 06:27] LABS: HEMATOCRIT 35.1 % (42-52); MEAN CELL VOLUME 80.3 fL (80-100); MEAN CORPUSCULAR HGB CONC 33.6 g/dl (32-36); MEAN PLATELET VOLUME 10.5 fL (7.4-10.4); PLATELET COUNT 198 K/uL (130-400); RED BLOOD COUNT 4.37 M/uL (4.7-6.1); WHITE BLOOD COUNT 14.69 K/uL (4.8-10.8)
[2016-07-27 06:45] LABS: CALCIUM 8.3 mg/dl (8.5-10.1); CREATININE 1.5 mg/dl (0.60-1.40)
[2016-07-27] MEDS: FLUCONAZOLE 50 MG TAB PO SCH (08:38)
[2016-07-27] MEDS: AMOXICILLIN/CLAVULANATE TAB 500 MG TAB PO SCH ×2 (08:38→12:27)
[2016-07-27] MEDS: ESCITALOPRAM OXALATE 10 MG TAB PO SCH (08:39)
[2016-07-27] MEDS: RANITIDINE HCL 150 MG TAB PO SCH ×2 (08:40→21:31)
[2016-07-27] MEDS ORDERED: SODIUM CHLORIDE 0.9% 1000ML 1,000 ML IV SCH (09:00)
--- NOTE | 2016-07-27 10:46 | DIAGNOSTIC IMAGING REPORT ---
CHEST ONE VIEW PORTABLE CLINICAL HISTORY: worse SOB, no hypoxia dyspnea COMPARISON STUDY: 07/22/2016 FINDINGS: Progressive increase in density right hemithorax. This presumably represents progressive consolidative and/or fusion-type change. Potential developing parenchymal infiltrate left base. Underlying components of mild congestive failure. IMPRESSION: Findings of mild congestive failure with progressive increase in density and or effusion right hemithorax. Electronically signed by: Joe Lubin M.D. 07/27/2016 10:45 AM Dictated Date/Time: 07/27/2016 10:44 AM
[2016-07-27] MEDS ORDERED: FUROSEMIDE INJ 20 MG in SYRINGE 0 ML IV ONE (12:15)
--- NOTE | 2016-07-27 12:34 | DIAGNOSTIC IMAGING REPORT ---
CHEST CT WITHOUT CONTRAST CT DOSE: 480.13 mGy.cm HISTORY: Dyspnea SOB with progressive effuse and clinical improvement TECHNIQUE: Multiaxial CT images of the chest were performed without contrast. COMPARISON: None. FINDINGS: Large right effusion. Right lower lobe atelectatic change. Several nodular densities left lung base measuring up to 8 mm. Probable right upper lobe nodular density measuring 7 mm. Prior median sternotomy. No definite lytic or blastic process of the bony structures. Limited evaluation the upper abdomen demonstrates hypodensities peripheral aspect right hepatic lobe best seen image 57. Smaller hypodense nodular densities of the posterior and inferior right hepatic lobe as well as anterior left hepatic lobe. Possibility of hepatic metastatic disease considered. Adenopathy versus mass of the upper abdomen possibly involving the lower aspect of the right kidney. An renal neoplasm or pathologic adenopathy must be considered. Several additional nonspecific nodes involving the retroperitoneum peripancreatic and periportal regions. IMPRESSION: 1. Large right pleural effusion. 2. Right lower lobe atelectatic change. 3. Several bilateral parenchymal nodules present possibly metastatic disease. 4. Retroperitoneal mass possibly of right renal origin versus pathologic retroperitoneal adenopathy. 5. Upper abdominal adenopathy 6. Probable metastatic liver disease. Electronically signed by: Joe Lubin M.D. 07/27/2016 12:33 PM Dictated Date/Time: 07/27/2016 12:28 PM
--- NOTE | 2016-07-27 19:25 | DIAGNOSTIC IMAGING REPORT ---
ABDOMEN AND PELVIS CT WITHOUT CONTRAST CT DOSE: 352.77 mGy.cm HISTORY: Mass potential metastatic disease TECHNIQUE: Multiaxial CT images of the abdomen and pelvis were performed without contrast. COMPARISON STUDY: None. FINDINGS: Severely limited exam in reference to potential malignancy or metastatic disease due to the absence of contrast enhancement. Potential hypodensities within the liver. Right pleural effusion with right lower lobe atelectatic change. Left base is grossly clear. Right paravertebral mass in continuity with the medial aspect of the right kidney. Right kidney itself is enlarged compared to the left. A renal neoplastic process must be in the testicle the diagnosis of exclusion. Upper abdominal adenopathy is noted. Bowel pattern within the abdomen and pelvis is considered nonobstructing. Bladder is midline. Inguinal regions appear unremarkable. Atherosclerotic change and ectasia of the abdominal aorta. Inferior vena cava potentially is encompassed by and/or displaced anteriorly by the retroperitoneal mass. Right renal artery is not well seen. Study is again compromised due to the absence of intravenous enhancement area in Several nodes are identified in the right perinephric space. Left kidney is negative for hydronephrosis. IMPRESSION: 1. Right pleural effusion with right basilar atelectatic change. Mass occupying the right paravertebral region which is in continuity with and originating from the right kidney. Maximum dimensions are approximately 10 x 6 cm including renal dimension with potential vascular involvement. 2. Probable dann metastatic change with probable additional metastatic change to the liver. 3. Severely compromised exam due to the absence of intravenous/oral contrast enhancement. 4. Right pleural effusion with right lower lobe atelectatic change chest been described previously. 5. Within limitations discussed, diagnosis of exclusion must include a renal neoplastic process with metastatic change Electronically signed by: Joe Lubin M.D. 07/27/2016 7:23 PM Dictated Date/Time: 07/27/2016 7:18 PM
[2016-07-28] VITALS (8 sets, daily range): BP systolic 92–118; BP diastolic 41–67; PULSE 73–120; TEMP 36.8–37; O2SAT 90–94
[2016-07-28] MEDS: LEVOTHYROXINE 50 MCG TAB PO SCH (06:04)
[2016-07-28] MEDS: HEPARIN SOD 5000 UNIT/0.5 ML CARP SQ SCH ×3 (06:06→21:44)
--- NOTE | 2016-07-28 07:31 | Medical Consult ---
Consultation Note Date of Service July 28, 2016. Consultation Note Consult Dictated #[id number]
[2016-07-28 07:32] LABS: HEMATOCRIT 36.3 % (42-52); MEAN CELL VOLUME 80.1 fL (80-100); MEAN CORPUSCULAR HEMOGLOBIN 27.2 pg (25-34); MEAN CORPUSCULAR HGB CONC 33.9 g/dl (32-36); MEAN PLATELET VOLUME 10.6 fL (7.4-10.4); PLATELET COUNT 221 K/uL (130-400); RED BLOOD COUNT 4.53 M/uL (4.7-6.1); WHITE BLOOD COUNT 15.14 K/uL (4.8-10.8)
[2016-07-28] MEDS: FLUCONAZOLE 50 MG TAB PO SCH (08:05)
[2016-07-28] MEDS: RANITIDINE HCL 150 MG TAB PO SCH ×2 (08:05→21:41)
--- NOTE | 2016-07-28 09:06 | Progress Note ---
Medicine Progress Note Date & Time of Visit: July 27, 2016 at 1000. Subjective 86 yo M correction resident presents with worsening weakness and confusion over past two weeks -new poss malignancy with mets identified on imaging today -CT surg consulted to test and drain pleural effusion thought to be malignant -pt appears fatigued but is easily awoken and mentating at baseline -tolerating PO -ambulatory -Lasix initially given for increased effusion so he has been up and down to the bathroom -visited room two times today, initially for exam, and then to discuss with daughter Virgen regarding the findings of the workup. -all questions answered Objective Last 8 Hrs Date Time Temp Pulse Resp B/P Pulse Ox O2 Delivery O2 Flow Rate FiO2 07/27/16 14:18 36.4 86 20 127/76 94 07/27/16 12:33 87 104/72 07/27/16 10:28 94 Room Air 07/27/16 08:49 78 18 103/69 07/27/16 08:35 84 91/54 94 Room Air Physical Exam: GEN: WNWD, in no acute distress, alert and appropriate. Was easily awoken from sleep, noted fatigue. HEENT: NC/AT, normal sclerae, MMM. Tongue with whitish plaque on the L side CARDIO: reg rate, S1/2 heard without m/g/r LUNGS: CTA bilaterally, no crackles, rales or wheezes, good diaphragmatic excursion ABD: soft, non-tender, non-distended, no rebound or guarding EXTREMITY: no LE swelling or edema, extremities are warm and well-perfused NEURO: sensation and strength were normal throughout, pt was easily following instructions and speaking clearly SKIN: warm and dry and bilateral plantar wounds that are covered by a clean dry dressing. Laboratory Results: Last 24 Hours Test 07/27/16 05:55 White Blood Count 14.69 K/uL Red Blood Count 4.37 M/uL Hemoglobin 11.8 g/dL Hematocrit 35.1 % Mean Corpuscular Volume 80.3 fL Mean Corpuscular Hemoglobin 27.0 pg Mean Corpuscular Hemoglobin Concent 33.6 g/dl RDW Standard Deviation 38.9 fL RDW Coefficient of Variation 13.4 % Platelet Count 198 K/uL Mean Platelet Volume 10.5 fL Sodium Level 137 mmol/L Potassium Level 4.0 mmol/L Chloride Level 106 mmol/L Carbon Dioxide Level 22 mmol/L Anion Gap 9.0 mmol/L Blood Urea Nitrogen 16 mg/dl Creatinine 1.50 mg/dl Est Creatinine Clear Calc Drug Dose 36.0 ml/min Estimated GFR () 48.5 Estimated GFR (Non- 41.9 BUN/Creatinine Ratio 11.0 Random Glucose 102 mg/dl Calcium Level 8.3 mg/dl Magnesium Level 2.0 mg/dl Assessment & Plan 86 yo M correction resident presents with worsening weakness and confusion for two weeks, thought to have RLL pneumonia, however, now appears more consistent with malignant effusion. New retroperitoneal mass identified. -orthostatic positive but now good reason, hold IVF 1. Metabolic encephalopathy: Multifactorial etiology in setting of hypothyroidism, pulmonary and thrush infections, vit D deficiency, and dementia -he continues to wax and wane but appears to be at baseline mental status today. Daughter is at the bedside and she agrees. Infections are controlled and cultures are negative to date. Cont Augmentin/Fluconazole/vit D supplementation and higher dose of Synthroid. Of note, plantar calluses which were debrided by wound care provider drained some pus and culturing out coag neg staph. No abx indicated. Blood cultures were redrawn, however, patient is afebrile and not septic and these wounds are not causing a systemic illness. MRI brain was unremarkable, EKG and cardiac panel negative. No other obvious causes at this time. EEG is consistent with metabolic encephalopathy. Appreciate neuro recs prior to sending him home tomorrow. 07/27: CXR performed for increase in SOB. Increased pleural effusion was suspicious so CT chest ordered. New 5cm retroperitoneal mass was seen with multiple lung and liver nodules consistent with poss malignancy with mets. Urology notified and CT surg requested for diagnostic and therapeutic effusion poss 2/2 malignancy. Pt's daughter is aware of results. The patient is calm and comfortable at baseline mental status today. Cont ergocalciferol, synthroid , and stop Lexapro and Augmentin to avoid unnecessary polypharmacy. 2. AYLEEN in setting of CKD III- resolved to baseline and stable. 3. HCAP 2/2 suspected gram negative bacteria-initially treated with Cefepime and Levaquin but transitioned to Augmentin with no clinical decline; based on findings of mass and increased pleural effusion, I believe this was the likely issue as opposed to pneumonia. The patient has not really demonstrated any signs of cough congestion, fevers, or chills since being here. Stopping Augmentin at this time. 4. Leukocytosis 2/2 PNA-treatment per #1 and monitor daily CBC. Persistent, likely 2/2 process above. 6. Oral thrush-on Fluconazole PO after failed trial of nystatin washes as outpatient 7. h/o heart valve replacement 8. Alzheimer's dementia-h/o problems with donepezil in the past; good day/ night cycles in hospital to avoid delirium, stable exam and no behavioral issues. 9. GERD-cont Zantac 10. HLP-stopped 2/2 fluconazole use for thrush and not likely needed moving forward as it adds to polypharmacy with limited benefit. 11. Hypothyroidism-cont with Synthroid 50mcg (increased during this hospitalization) DVT proph-heparin DNR-per son who is POA Dispo--pending discussion with Dr. Vu and plan in presence of new mass and pleural effusion. Likely will return to [facility]. Xenia Welch DO [facility] Hospitalist Consultants: Neuro, Urology, CT surgery Vaccinations: None. Current Inpatient Medications: Current Inpatient Medications Medications (Trade) Dose Ordered Sig/Jose Route Start Time Stop Time Status Last Admin Dose Admin Heparin Sodium (Porcine) (Heparin Sq 5000 Unit/0.5ml) 5,000 unit Q8 SQ 07/22/16 22:00 08/21/16 21:59 07/27/16 14:46 5,000 UNIT Acetaminophen (Tylenol Tab) 650 mg Q4H PRN PO 07/22/16 13:30 08/21/16 13:29 Ondansetron HCl (Zofran Inj) 4 mg Q6H PRN IV 07/22/16 13:30 08/21/16 13:29 Polyethylene (Miralax Powder Packet) 17 gm DAILY PRN PO 07/22/16 13:30 08/21/16 13:29 Ranitidine HCl (zANTac TAB) 150 mg BID PO 07/22/16 21:00 08/21/16 20:59 07/27/16 08:40 150 MG Amoxicillin/ Clavulanate Potassium (Augmentin Tab) 500 mg TIDM PO 07/24/16 12:00 07/31/16 11:59 07/27/16 12:27 500 MG Fluconazole (Diflucan Tab) 50 mg QAM PO 07/25/16 09:00 07/31/16 08:59 07/27/16 08:38 50 MG Levothyroxine Sodium (Synthroid Tab) 50 mcg DAILYBB PO 07/25/16 06:30 08/24/16 06:29 07/27/16 05:31 50 MCG Ergocalciferol 58485 interunit 50,000 interunit Q4D@0900 PO 07/25/16 10:00 09/07/16 09:01 07/25/16 10:38 50,000 INTERUNIT Sodium Chloride (Nss 1000ml) 1,000 ml @ 125 mls/hr Q8H IV 07/27/16 09:00 07/27/16 16:59 07/27/16 09:48 125 MLS/HR
--- NOTE | 2016-07-28 09:08 | Progress Note ---
Medicine Progress Note Date & Time of Visit: July 28, 2016 at 08:51. Subjective 86 yo M senior care resident presents with worsening weakness and confusion for two weeks, thought to have RLL pneumonia, however, now appears more consistent with malignant effusion. New retroperitoneal mass identified. -tolerating breakfast -ambulatory -mentating at baseline -still with some expected SOB and no work of breathing or worsening of breathing overnight -Lasix was given yesterday with good result. -plan for thoracentesis tomorrow. Objective Last 8 Hrs Date Time Temp Pulse Resp B/P Pulse Ox O2 Delivery O2 Flow Rate FiO2 07/28/16 08:09 36.8 88 18 109/63 92 Room Air Physical Exam: GEN: WNWD, in no acute distress, alert and appropriate. Visiting with granddaughter who is at bedside. HEENT: NC/AT, normal sclerae, MMM. Tongue with whitish plaque on the L side CARDIO: reg rate, S1/2 heard without m/g/r LUNGS: CTA bilaterally, diminished breath sounds at right base ABD: soft, non-tender, non-distended, no rebound or guarding EXTREMITY: no LE swelling or edema, extremities are warm and well-perfused Laboratory Results: 07/28/16 06:51 07/27/16 05:55 Test 07/22/16 11:10 07/22/16 12:49 07/22/16 16:00 07/23/16 04:00 Prothrombin Time 11.2 SECONDS (9.0-12.0) Prothromb Time International Ratio 1.0 (0.9-1.1) Activated Partial Thromboplast Time 28.7 SECONDS (21.0-31.0) Partial Thromboplastin Ratio 1.1 Direct Bilirubin < 0.1 mg/dl (0-0.2) Thyroid Stimulating Hormone (TSH) 6.660 uIu/ml (0.300-4.500) Urine Color DK YELLOW Urine Appearance CLOUDY (CLEAR) Urine pH 5.0 (4.5-7.5) Urine Specific [place] 1.022 (1.000-1.030) Urine Protein 2+ (NEG) Urine Glucose (UA) NEG (NEG) Urine Ketones TRACE (NEG) Urine Occult Blood 3+ (NEG) Urine Nitrite NEG (NEG) Urine Bilirubin NEG (NEG) Urine Urobilinogen NEG (NEG) Urine Leukocyte Esterase TRACE (NEG) Urine WBC (Auto) 10-30 /hpf (0-5) Urine RBC (Auto) >30 /hpf (0-4) Urine Hyaline Casts (Auto) 1-5 /lpf (0-5) Urine Epithelial Cells (Auto) 20-30 /lpf (0-5) Urine Bacteria (Auto) NEG (NEG) Urine Pathogenic Casts 1-5 GRANULAR CASTS /lpf (0) Urine Mucus PRESENT (NONE PRSENT) Urine Yeast (Auto) (NONE PRSENT) Urine Random Creatinine 210.0 mg/dl Urine Random Sodium 75 mEq/L Influenza Type A (RT-PCR) Neg for Influ A (NEG) Influenza Type B (RT-PCR) Neg for Influ B (NEG) Immature Granulocyte % (Auto) 0.5 % White Blood Count 14.16 K/uL (4.8-10.8) Red Blood Count 4.46 M/uL (4.7-6.1) Hemoglobin 12.3 g/dL (14.0-18.0) Hematocrit 36.4 % (42-52) Mean Corpuscular Volume 81.6 fL (80-100) Mean Corpuscular Hemoglobin 27.6 pg (25-34) Mean Corpuscular Hemoglobin Concent 33.8 g/dl (32-36) Platelet Count 152 K/uL (130-400) Mean Platelet Volume 10.4 fL (7.4-10.4) Neutrophils (%) (Auto) 71.6 % Lymphocytes (%) (Auto) 13.2 % Monocytes (%) (Auto) 12.7 % Eosinophils (%) (Auto) 1.8 % Basophils (%) (Auto) 0.2 % Neutrophils # (Auto) 10.13 K/uL (1.4-6.5) Lymphocytes # (Auto) 1.87 K/uL (1.2-3.4) Monocytes # (Auto) 1.80 K/uL (0.11-0.59) Eosinophils # (Auto) 0.26 K/uL (0-0.5) Basophils # (Auto) 0.03 K/uL (0-0.2) Immature Granulocyte # (Auto) 0.07 K/uL (0.00-0.02) Random Vancomycin Level 12.6 mcg/ml Test 07/25/16 05:18 07/25/16 13:59 07/25/16 14:07 07/25/16 14:36 Estimated Average Glucose 157 mg/dl Hemoglobin A1c 7.1 % (4.5-5.6) Iron Level 50 mcg/dl (35-175) Total Iron Binding Capacity 165 mcg/dl (250-450) Ferritin 411.8 ng/ml (8.0-388.0) Vitamin B12 Level 285 pg/mL (211-911) 25-Hydroxy Vitamin D Total 7.1 ng/ml (30-100) Folate 8.51 ng/mL (>5.38) Total Bilirubin 0.3 mg/dl (0.2-1) Aspartate Amino Transf (AST/SGOT) 23 U/L (15-37) Alanine Aminotransferase (ALT/SGPT) 18 U/L (12-78) Alkaline Phosphatase 97 U/L (45-117) Total Creatine Kinase 49 U/L (39-308) Creatine Kinase MB 1.9 ng/ml (0.5-3.6) Troponin I 0.020 ng/ml (0-0.045) Total Protein 7.0 gm/dl (6.4-8.2) Albumin 2.6 gm/dl (3.4-5.0) Globulin 4.4 gm/dl (2.5-4.0) Albumin/Globulin Ratio 0.6 (0.9-2) Bedside Glucose 173 mg/dl (70-99) Blood Gas Sample Site R Radial Bedside Blood Gas pH (LAB) 7.44 (7.35-7.45) Bedside Blood Gas pCO2 (LAB) 26 mmHg (35-46) Bedside Blood Gas pO2 (LAB) 61 mmHg (80-95) Bedside Blood Gas HCO3 (LAB) 17 meq/L (19-24) Bedside Blood Gas Total CO2 18 mEq/l (24-31) Bedside Blood Gas Base Excess (LAB) -7.0 meq/L (-9-1.8) Bedside Blood Gas O2 Saturation 92.0 % (90-95) Mio Test NA Oxygen Delivery Device Room Air Test 07/25/16 14:54 07/27/16 05:55 07/28/16 06:51 Creatine Kinase MB Ratio (0-3.0) Anion Gap 9.0 mmol/L (3-11) Est Creatinine Clear Calc Drug Dose 36.0 ml/min Estimated GFR () 48.5 Estimated GFR (Non- 41.9 BUN/Creatinine Ratio 11.0 (10-20) Calcium Level 8.3 mg/dl (8.5-10.1) Magnesium Level 2.0 mg/dl (1.8-2.4) Red Blood Count 4.53 M/uL (4.7-6.1) Mean Corpuscular Volume 80.1 fL (80-100) Mean Corpuscular Hemoglobin 27.2 pg (25-34) Mean Corpuscular Hemoglobin Concent 33.9 g/dl (32-36) RDW Standard Deviation 39.4 fL (36.4-46.3) RDW Coefficient of Variation 13.6 % (11.5-14.5) Mean Platelet Volume 10.6 fL (7.4-10.4) Date/Time Source Procedure Growth Status 07/25/16 15:21 Blood Blood Culture - Preliminary NO GROWTH TO DATE. Resulted 07/22/16 14:35 Nasal MRSA DNA Surveillance Screen - Final Specimen Negative for MRSA by DNA Probe Complete 07/22/16 12:49 Urine , Clean Catch Urine Culture - Final THREE TYPES OF ORGANISMS PRESENT, ALL... Complete 07/24/16 11:35 Abscess Foot Left Gram Stain - Final Complete 07/24/16 11:35 Wound Culture - Final Coag Neg Staphylococcus Coag Neg Staphylococcus#2 Complete Last 24 Hours Test 07/28/16 06:51 White Blood Count 15.14 K/uL Red Blood Count 4.53 M/uL Hemoglobin 12.3 g/dL Hematocrit 36.3 % Mean Corpuscular Volume 80.1 fL Mean Corpuscular Hemoglobin 27.2 pg Mean Corpuscular Hemoglobin Concent 33.9 g/dl RDW Standard Deviation 39.4 fL RDW Coefficient of Variation 13.6 % Platelet Count 221 K/uL Mean Platelet Volume 10.6 fL Assessment & Plan 86 yo M senior care resident presents with worsening weakness and confusion for two weeks, thought to have RLL pneumonia, however, now appears more consistent with malignant effusion. New retroperitoneal mass identified. 1. Metabolic encephalopathy: Multifactorial etiology in setting of hypothyroidism, pulmonary and thrush infections, vit D deficiency, and dementia -he continues to wax and wane but appears to be at baseline mental status today. Daughter is at the bedside and she agrees. Infections are controlled and cultures are negative to date. Cont Augmentin/Fluconazole/vit D supplementation and higher dose of Synthroid. Of note, plantar calluses which were debrided by wound care provider drained some pus and culturing out coag neg staph. No abx indicated. Blood cultures were redrawn, however, patient is afebrile and not septic and these wounds are not causing a systemic illness. MRI brain was unremarkable, EKG and cardiac panel negative. No other obvious causes at this time. EEG is consistent with metabolic encephalopathy. Appreciate neuro recs prior to sending him home tomorrow. 07/27: CXR performed for increase in SOB. Increased pleural effusion was suspicious so CT chest ordered. New 5cm retroperitoneal mass was seen with multiple lung and liver nodules consistent with poss malignancy with mets. Urology notified and CT surg requested for diagnostic and therapeutic effusion poss 2/2 malignancy. Pt's daughter is aware of results. The patient is calm and comfortable at baseline mental status today. Cont ergocalciferol, synthroid , and stop Lexapro and Augmentin to avoid unnecessary polypharmacy. 07/28: Pt is mentating at baseline this morning, tolerating PO. Visiting with granddaughter at the bedside. Awaiting discussion with Dr. Vu. 2. Pleural effusion likely 2.2 malignancy-CT surg consulted for diagnostic and therapeutic tap; will take place in am. 3. AYLEEN in setting of CKD III- resolved to baseline and stable. 4. HCAP 2/2 suspected gram negative bacteria-initially treated with Cefepime and Levaquin but transitioned to Augmentin with no clinical decline; based on findings of mass and increased pleural effusion, I believe this was the likely issue as opposed to pneumonia. The patient has not really demonstrated any signs of cough congestion, fevers, or chills since being here. Augmentin stopped. 5. Leukocytosis 2/2 PNA-treatment per #1 and monitor daily CBC. Persistent, likely 2/2 process above. 6. Oral thrush-on Fluconazole PO after failed trial of nystatin washes as outpatient 7. h/o heart valve replacement 8. Alzheimer's dementia-h/o problems with donepezil in the past; good day/ night cycles in hospital to avoid delirium, stable exam and no behavioral issues. 9. GERD-cont Zantac 10. HLP-Zocor stopped 2/2 fluconazole use for thrush and not likely needed moving forward as it adds to polypharmacy with limited benefit. 11. Hypothyroidism-cont with Synthroid 50mcg (increased during this hospitalization) DVT proph-heparin DNR-per son who is POA Dispo--pending discussion with Dr. Vu and plan in presence of new mass and pleural effusion. Likely will return to [facility] after drainage of pleural effusion-tevin Hooker. Xenia Welch DO [facility] Hospitalist Consultants: Neuro, Urology, CT surgery Vaccinations: None. Current Inpatient Medications: Current Inpatient Medications Medications (Trade) Dose Ordered Sig/Jose Route Start Time Stop Time Status Last Admin Dose Admin Heparin Sodium (Porcine) (Heparin Sq 5000 Unit/0.5ml) 5,000 unit Q8 SQ 07/22/16 22:00 08/21/16 21:59 07/28/16 06:06 5,000 UNIT Acetaminophen (Tylenol Tab) 650 mg Q4H PRN PO 07/22/16 13:30 08/21/16 13:29 Ondansetron HCl (Zofran Inj) 4 mg Q6H PRN IV 07/22/16 13:30 08/21/16 13:29 Polyethylene (Miralax Powder Packet) 17 gm DAILY PRN PO 07/22/16 13:30 08/21/16 13:29 Ranitidine HCl (zANTac TAB) 150 mg BID PO 07/22/16 21:00 08/21/16 20:59 07/28/16 08:05 150 MG Fluconazole (Diflucan Tab) 50 mg QAM PO 07/25/16 09:00 07/31/16 08:59 07/28/16 08:05 50 MG Levothyroxine Sodium (Synthroid Tab) 50 mcg DAILYBB PO 07/25/16 06:30 08/24/16 06:29 07/28/16 06:04 50 MCG Ergocalciferol (Vitamin D Cap) 50,000 interunit Q4D@0900 PO 07/25/16 10:00 09/07/16 09:01 07/25/16 10:38 50,000 INTERUNIT
--- NOTE | 2016-07-28 09:16 | CONSULTATION REPORT ---
DATE OF CONSULTATION: 07/28/2016 REASON FOR CONSULTATION: Pleural effusion. HISTORY OF PRESENT ILLNESS: This is an 86-year-old male who was admitted to [facility] on 07/22/2016. The patient was admitted due to confusion and lethargy. Since admission, the patient has been treated for healthcare-associated pneumonia secondary to gram negative bacteremia and this was felt to be a major contributor to the patient's altered mental status. The patient has shown clinical improvement since his admission. I did attempt to question the patient on numerous symptoms, but he is alert only to person. He does deny any falls or head injuries and he does not report any new visual changes. He denies any tinnitus or sore throat. Currently, he says he has only short of breath if he ambulates. He denies any chest pain. He has not had any nausea or vomiting. He denies dysuria. He does have a history of Alzheimer's dementia. He does not have any known history of DVT or PE. The patient has had diagnostic studies this admission, which included a CT scan of the chest, which did show a large right pleural effusion. There were several bilateral parenchymal pulmonary nodules present that were felt to also represent some type of metastatic disease. We have been asked to see the patient for his pleural effusions to consider drainage. PAST MEDICAL HISTORY: Includes the followin. Alzheimer's dementia. 2. GERD. 3. Hyperlipidemia. PAST SURGICAL HISTORY: Includes a history of heart valve replacement. ALLERGIES: THE PATIENT HAS ALLERGIES LISTED TO ARICEPT AND ZETIA. OUTPATIENT MEDICATION REGIMEN: Includes the followin. Vitamin D 50,000 units every 4 days. 2. Lexapro 5 mg daily. 3. Fluconazole 50 mg daily. 4. Synthroid 50 mcg daily. 5. Zantac 150 mg daily. 6. Zocor 80 mg daily. SOCIAL HISTORY: The patient does reside in [facility]. FAMILY HISTORY: The patient was unable to provide any family history, but per review of the chart, there is no significant medical history. REVIEW OF SYSTEMS: As noted above. PHYSICAL EXAMINATION: VITAL SIGNS: The patient is afebrile with temperature 36.9, pulse 89 and regular, respirations are 18 and unlabored, blood pressure is 121/68, and pulse ox 93% on room air. SKIN: Warm with good turgor. GENERAL: He is alert. He is oriented to person only. He is in no distress. HEENT: Head is atraumatic and normocephalic. EYES: Pupils equal, round and reactive to light and accommodation. Extraocular motions are intact. EARS: Auditory acuity is grossly intact. NOSE: Nasal patency was intact. Sinuses are nontender. MOUTH: Moist without exudates. NECK: Supple. There is no JVD. CARDIOVASCULAR: Regular rate and rhythm. LUNGS: Revealed no use of accessory muscles. He had markedly decreased breath sounds on the right side. ABDOMEN: Soft and nontender. EXTREMITIES: Revealed no cyanosis, clubbing, or edema. NEUROLOGIC: Reveals that he could move all 4 extremities without noted focal deficits. DIAGNOSTIC DATA: As noted above. IMPRESSION: An 86-year-old male with large right pleural effusion. PLAN: Etiology of his pleural effusion is uncertain at this time. Dr. Auguste will be returning to the hospital tomorrow and will likely perform a thoracentesis or PleurX catheter and send the fluid for appropriate analysis to determine the cause.
--- NOTE | 2016-07-28 09:30 | ECHOCARDIOGRAM REPORT ---
*NOTICE TO RECEIVING LIBERTARIAN AGENCY This information is strictly Confidential and protected under [place] law. [place] law prohibits you from making any further disclosure of this information unless further disclosure is expressly permitted by the written consent of the person to whom it pertains or is authorized by law. A general authorization for the release of medical or other information is not sufficient for this purpose. Hospital accepts no responsibility if the information is made available to any other person, INCLUDING THE PATIENT. Interpretation Summary * Name: ASIYA NICOLAS Study Date: 07/27/2016 01:06 PM BP: 103/69 mmHg * Patient Location: .[id number]\1 HR: 89 * : 1930 (M/d/yyyy) Gender: Male Height: 69 in * Age: 86 yrs Ethnicity: [place] Weight: 170 lb * Ordering Physician: Xenia Welch * [facility] * Performed By: Mann Pozo RDCS * * Reason For Study: Dyspnea and fatigue * BSA: 1.9 m2 * -- Conclusions -- * Small, underfilled LV chamber size with mild concentric LVH. * Hyperdynamic LV systolic function, EF >70%. * Abnormal septal wall motion compatible with postoperative state, otherwise, no segmental left ventricular wall motion abnormalities are noted. * Grade I diastolic dysfunction. * There is a bioprosthetic aortic valve. * The gradient is normal for this prosthetic aortic valve. * Doppler evidence of regurgitation is probably normal for this prosthetic aortic valve. * There is severe mitral annular calcification. * Calcified mitral apparatus. * There is mild mitral regurgitation. * There is no mitral valve stenosis. * Mild tricuspid regurgitation. * Severe left atrial enlargement. * Small, anteriorly loculated pericardial effusion without hemodynamic compromise. * Large left pleural effusion. Procedure Details * A complete two-dimensional transthoracic echocardiogram was performed (2D, M-mode, Doppler and color flow Doppler). * The study was technically adequate. Left Ventricle * The left ventricular cavity is small. * There is mild concentric left ventricular hypertrophy. * The left ventricle is hyperdynamic. * No segmental left ventricular wall motion abnormalities are noted. * Ejection Fraction = >70 %. * Septal motion is consistent with post-operative state. * The left ventricular wall motion is normal. Right Ventricle * The right ventricular cavity size is normal (basal dimension <4.2 cm in right ventricular apical 4-chamber view). * The right ventricular systolic function is qualitatively normal. Atria * The left atrium is severely dilated. * Right atrial size is normal. * No ASD detected; PFO is not assessed. Mitral Valve * There is severe mitral annular calcification. * Calcified mitral apparatus. * There is no mitral valve stenosis. * There is mild mitral regurgitation. Tricuspid Valve * The tricuspid valve anatomy is normal. * There is no tricuspid stenosis. * There is mild tricuspid regurgitation. Aortic Valve * There is a bioprosthetic aortic valve. * The gradient is normal for this prosthetic aortic valve. * Doppler evidence of regurgitation is probably normal for this prosthetic aortic valve. Pulmonic Valve * The pulmonary valve is not well seen, but the Doppler examination is normal without significant regurgitation or stenosis. Great Vessels * The aortic root is normal size. Pericardium/Pleural * Small pericardial effusion. * A loculated pericardial effusion is noted. * Large left pleural effusion. Left Ventricular Diastolic Function * Grade I diastolic dysfunction, (abnormal relaxation pattern). MMode 2D Measurements and Calculations IVSd 1.2 cm IVSs 1.6 cm LVIDd 4.0 cm LVIDs 2.3 cm LVPWd 1.2 cm LVPWs 1.6 cm IVS/LVPW 0.97 FS 44.2 % EDV(Teich) 71.4 ml ESV(Teich) 17.2 ml EF(Teich) 76.0 % EDV(cubed) 65.6 ml ESV(cubed) 11.4 ml EF(cubed) 82.6 % % IVS thick 35.0 % % LVPW thick 29.2 % LV mass(C)d 164.9 grams LV mass(C)dI 85.6 grams/m\S\2 LV mass(C)s 121.1 grams LV mass(C)sI 62.8 grams/m\S\2 SV(Teich) 54.3 ml SI(Teich) 28.1 ml/m\S\2 SV(cubed) 54.2 ml SI(cubed) 28.1 ml/m\S\2 Ao root diam 3.2 cm Ao root area 8.2 cm\S\2 ACS 1.8 cm LA dimension 4.4 cm asc Aorta Diam 3.6 cm LA/Ao 1.4 LVOT diam 2.1 cm LVOT area 3.4 cm\S\2 LVAd ap4 21.5 cm\S\2 LVLd ap4 6.1 cm EDV(MOD-sp4) 64.0 ml LVAs ap4 12.0 cm\S\2 LVLs ap4 5.5 cm ESV(MOD-sp4) 23.0 ml EF(MOD-sp4) 64.1 % LVAd ap2 19.6 cm\S\2 LVLd ap2 7.0 cm EDV(MOD-sp2) 50.0 ml LVAs ap2 11.5 cm\S\2 LVLs ap2 6.0 cm ESV(MOD-sp2) 18.0 ml EF(MOD-sp2) 64.0 % SV(MOD-sp4) 41.0 ml SI(MOD-sp4) 21.3 ml/m\S\2 SV(MOD-sp2) 32.0 ml SI(MOD-sp2) 16.6 ml/m\S\2 Doppler Measurements and Calculations MV E max lowell 102.6 cm/sec MV A max lowell 145.8 cm/sec MV E/A 0.70 MV V2 max 190.0 cm/sec MV max PG 14.4 mmHg MV V2 mean 107.1 cm/sec MV mean PG 5.2 mmHg MV V2 VTI 41.5 cm MV dec time 0.25 sec Ao V2 max 193.0 cm/sec Ao max PG 14.9 mmHg Ao max PG (full) 9.8 mmHg SHANON(V,A) 2.0 cm\S\2 SHANON(V,D) 2.0 cm\S\2 LV V1 max PG 5.1 mmHg LV V1 max 112.4 cm/sec MR max lowell 499.5 cm/sec MR max PG 99.8 mmHg PA V2 max 112.7 cm/sec PA max PG 5.1 mmHg PI end-d lowell 118.1 cm/sec TR max lowell 253.8 cm/sec
--- NOTE | 2016-07-28 15:12 | Urology Consultation ---
History General Date of Service: July 28, 2016. [facility] Pt seen a [facility]rologist before?: No History of Present Illness 86 yo M presents to ER from [facility] for increased weakness, lethargy, increased fatigue for the past two weeks. Workup revealed a RLL pneumonia and the patient reports some productive cough at least initially but denies any shortness of breath, chest pain, fevers, chills, headaches, dysuria or other urinary symptoms, abdominal pain or other pain, nausea, vomiting, or diarrhea. The history is given by the patient helped by his son who is at bedside. The son states that he just moved into [facility] in Apr and is doing well with it , but had recently been started on Lexapro for some depression. During admission, a CXR was performed which showed a pleural effusion. He then went on to have a CT Scan of the Chest which showed large right pleural effusion with possible malignant lesions in the lung and liver with a concerning mass in the right retroperitoneum/kidney. He then went on to have a formal CT Scan of the Abd/Pelvis. This showed: 1.Right pleural effusion with right basilar atelectatic change. Mass occupying the right paravertebral region which is in continuity with and originating from the right kidney. Maximum dimensions are approximately 10 x 6 cm including renal dimension with potential vascular involvement. 2. Probable dann metastatic change with probable additional metastatic change to the liver. 3. Severely compromised exam due to the absence of intravenous/oral contrast enhancement. 4. Right pleural effusion with right lower lobe atelectatic change chest been described previously. 5. Within limitations discussed, diagnosis of exclusion must include a renal neoplastic process with metastatic change Urology was consulted to discuss these findings. The patient is elderly and quite deconditioned. His extended family is at the bedside and very informative regarding his care. Imaging Imaging: CT Laboratory Labs were reviewed and are within normal limits unless listed below. Labs are available in the chart and at [facility] Problem List Medical Problems: (1) AYLEEN (acute kidney injury) Status: Acute (2) Pneumonia Status: Acute Past History pneumonia Pt had a problem w anesthesia?: No Past Surgical History: no surgical history Family History Patient reports no known family medical history. Social History Smoking: no current use Alcohol: no current use Drug use: none Marital status: , Housing status: jail Occupation status: retired Immunizations History of Influenza Vaccine: Unknown History of Tetanus Vaccine?: Unknown History of Pneumococcal: Unknown History of Hepatitis B Vaccine: Unknown History of MDRO No Allergies Coded Allergies: Donepezil (Unverified Adverse Reaction, Unknown, CONFUSION, 12/13/14) Ezetimibe (Unverified Adverse Reaction, Unknown, UNKNOWN, 12/13/14) Medications Home Medications: Home Meds and Scripts Medications Dose Route/Sig Max Daily Dose Days Date Category Dose Instructions Vitamin D 22541 Unit (Ergocalciferol) 50,000 Unit Cap 50,000 Interunit PO Q4D@0900 42 07/25/16 Rx Take one cap every 4 days for 6 weeks. Synthroid (Levothyroxine Sodium) 50 Mcg Tab 50 Mcg PO DAILYBB 30 07/25/16 Rx Fluconazole 50 Mg Tab 50 Mg PO QAM 5 07/25/16 Rx Amoxicillin/Clavulanate P (Amoxicillin & Pot Clavulanate) 1 Tab Tab 500 Mg PO TIDM 4 07/25/16 Rx Lexapro (Escitalopram Oxalate) 5 Mg Tab 5 Mg PO QAM 07/22/16 Reported Zocor (Simvastatin) 80 Mg Tab 80 Mg PO QPM 12/13/14 Reported Zantac (Ranitidine HCl) 150 Mg Tab 150 Mg PO BID 12/13/14 Reported AM & PM Inpatient Medications: Current Inpatient Medications Medications (Trade) Dose Ordered Sig/Jose Route Start Time Stop Time Status Last Admin Dose Admin Heparin Sodium (Porcine) (Heparin Sq 5000 Unit/0.5ml) 5,000 unit Q8 SQ 07/22/16 22:00 08/21/16 21:59 07/28/16 13:56 5,000 UNIT Acetaminophen (Tylenol Tab) 650 mg Q4H PRN PO 07/22/16 13:30 08/21/16 13:29 Ondansetron HCl (Zofran Inj) 4 mg Q6H PRN IV 07/22/16 13:30 08/21/16 13:29 Polyethylene (Miralax Powder Packet) 17 gm DAILY PRN PO 07/22/16 13:30 08/21/16 13:29 Ranitidine HCl (zANTac TAB) 150 mg BID PO 07/22/16 21:00 08/21/16 20:59 07/28/16 08:05 150 MG Fluconazole (Diflucan Tab) 50 mg QAM PO 07/25/16 09:00 07/31/16 08:59 07/28/16 08:05 50 MG Levothyroxine Sodium (Synthroid Tab) 50 mcg DAILYBB PO 07/25/16 06:30 08/24/16 06:29 07/28/16 06:04 50 MCG Ergocalciferol (Vitamin D Cap) 50,000 interunit Q4D@0900 PO 07/25/16 10:00 09/07/16 09:01 07/25/16 10:38 50,000 INTERUNIT Review of Systems Review of Systems Neurological: + dizzy Endocrine: + tired/sluggish Gastrointestinal: + nausea Musculoskeletal: + back pain Male : + weak stream All Other Systems: Reviewed and Negative Physical Exam Vital Signs: Vital Signs Past 12 Hours Date Time Temp Pulse Resp B/P Pulse Ox O2 Delivery O2 Flow Rate FiO2 07/28/16 08:43 92 Room Air 07/28/16 08:09 36.8 88 18 109/63 92 Room Air Physical Exam: General Appearance: WD/WN, no apparent distress ENT: hearing grossly normal Neck: supple, no adenopathy Respiratory/Chest: chest non-tender, + decreased breath sounds Cardiovascular: regular rate, rhythm Extremities: non-tender Neurologic/Psychiatric: no motor/sensory deficits, alert Skin: no rash Lymphatic: no adenopathy Assessment & Plan Assessment & Plan (1) Renal mass (2) Pneumonia Status: Acute I had a long discussion with the patient and her family. This elderly gentleman has a newly diagnosed large right renal mass with what appears to be local and distant extension/metastasis. 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 The pleural effusion may be related to this malignant process. He is scheduled to have the fluid tapped from his chest on Friday. This should be sent for cytology. It is possible to identify malignant cells and obtain a tissue diagnosis. If that is not diagnostic, then a percutaneous renal biopsy could be considered to obtain a tissue diagnosis. I don't feel that he is a good surgical candidate, especially given the local invasion and LAD with distortion of the IVC. I would recommend early consultation with Medical Oncology to discuss possible systemic treatment options for metestatic RCC.
[2016-07-29 00:24] VITALS: O2SAT 91
[2016-07-29] MEDS: HEPARIN SOD 5000 UNIT/0.5 ML CARP SQ SCH (05:54)
[2016-07-29] MEDS: LEVOTHYROXINE 50 MCG TAB PO SCH (05:55)
[2016-07-29 06:08] LABS: CREATININE 1.6 mg/dl (0.60-1.40)
[2016-07-29 07:45] VITALS: O2SAT 90
[2016-07-29 07:52] VITALS: BP 110/75; PULSE 86; TEMP 36.8; O2SAT 90
--- NOTE | 2016-07-29 08:40 | Progress Note ---
Medicine Progress Note Date & Time of Visit: July 29, 2016 at 08:28. 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 New retroperitoneal mass identified. -no issues overnight -much more lethargic and difficult to wake up today -can follow some instructions and doesn't appear focal -very fatigued -thoracentesis being set up -discussed case with both sons who are at the bedside this morning -Oncology to see patient and discuss options today. Objective Last 8 Hrs Date Time Temp Pulse Resp B/P Pulse Ox O2 Delivery O2 Flow Rate FiO2 07/29/16 07:52 36.8 86 20 110/75 90 Physical Exam: GEN: WNWD, in no acute distress, lethargic. HEENT: NC/AT, normal sclerae, MMM. CARDIO: reg rate, S1/2 heard without m/g/r LUNGS: CTA bilaterally, diminished breath sounds at right base ABD: soft, non-tender, non-distended, no rebound or guarding, +BS EXTREMITY: no LE swelling or edema, extremities are warm and well-perfused NEURO: able to wake up and say he is not in pain and doesn't know if he felt bad overnight, PERRL, equal handgrip, no facial droop, 5/5 strength in lower extremities, SKIN: warma nd dry. Nondraining open ulcers on plantar feet bilaterally covered with dry dressing, no surrounding erythema Laboratory Results: 07/28/16 06:51 07/27/16 05:55 07/29/16 05:11 Test 07/22/16 11:10 07/22/16 12:49 07/22/16 16:00 07/23/16 04:00 Prothrombin Time 11.2 SECONDS (9.0-12.0) Prothromb Time International Ratio 1.0 (0.9-1.1) Activated Partial Thromboplast Time 28.7 SECONDS (21.0-31.0) Partial Thromboplastin Ratio 1.1 Direct Bilirubin < 0.1 mg/dl (0-0.2) Thyroid Stimulating Hormone (TSH) 6.660 uIu/ml (0.300-4.500) Urine Color DK YELLOW Urine Appearance CLOUDY (CLEAR) Urine pH 5.0 (4.5-7.5) Urine Specific [place] 1.022 (1.000-1.030) Urine Protein 2+ (NEG) Urine Glucose (UA) NEG (NEG) Urine Ketones TRACE (NEG) Urine Occult Blood 3+ (NEG) Urine Nitrite NEG (NEG) Urine Bilirubin NEG (NEG) Urine Urobilinogen NEG (NEG) Urine Leukocyte Esterase TRACE (NEG) Urine WBC (Auto) 10-30 /hpf (0-5) Urine RBC (Auto) >30 /hpf (0-4) Urine Hyaline Casts (Auto) 1-5 /lpf (0-5) Urine Epithelial Cells (Auto) 20-30 /lpf (0-5) Urine Bacteria (Auto) NEG (NEG) Urine Pathogenic Casts 1-5 GRANULAR CASTS /lpf (0) Urine Mucus PRESENT (NONE PRSENT) Urine Yeast (Auto) (NONE PRSENT) Urine Random Creatinine 210.0 mg/dl Urine Random Sodium 75 mEq/L Influenza Type A (RT-PCR) Neg for Influ A (NEG) Influenza Type B (RT-PCR) Neg for Influ B (NEG) Immature Granulocyte % (Auto) 0.5 % White Blood Count 14.16 K/uL (4.8-10.8) Red Blood Count 4.46 M/uL (4.7-6.1) Hemoglobin 12.3 g/dL (14.0-18.0) Hematocrit 36.4 % (42-52) Mean Corpuscular Volume 81.6 fL (80-100) Mean Corpuscular Hemoglobin 27.6 pg (25-34) Mean Corpuscular Hemoglobin Concent 33.8 g/dl (32-36) Platelet Count 152 K/uL (130-400) Mean Platelet Volume 10.4 fL (7.4-10.4) Neutrophils (%) (Auto) 71.6 % Lymphocytes (%) (Auto) 13.2 % Monocytes (%) (Auto) 12.7 % Eosinophils (%) (Auto) 1.8 % Basophils (%) (Auto) 0.2 % Neutrophils # (Auto) 10.13 K/uL (1.4-6.5) Lymphocytes # (Auto) 1.87 K/uL (1.2-3.4) Monocytes # (Auto) 1.80 K/uL (0.11-0.59) Eosinophils # (Auto) 0.26 K/uL (0-0.5) Basophils # (Auto) 0.03 K/uL (0-0.2) Immature Granulocyte # (Auto) 0.07 K/uL (0.00-0.02) Random Vancomycin Level 12.6 mcg/ml Test 07/25/16 05:18 07/25/16 13:59 07/25/16 14:07 07/25/16 14:36 Estimated Average Glucose 157 mg/dl Hemoglobin A1c 7.1 % (4.5-5.6) Iron Level 50 mcg/dl (35-175) Total Iron Binding Capacity 165 mcg/dl (250-450) Ferritin 411.8 ng/ml (8.0-388.0) Vitamin B12 Level 285 pg/mL (211-911) 25-Hydroxy Vitamin D Total 7.1 ng/ml (30-100) Folate 8.51 ng/mL (>5.38) Total Bilirubin 0.3 mg/dl (0.2-1) Aspartate Amino Transf (AST/SGOT) 23 U/L (15-37) Alanine Aminotransferase (ALT/SGPT) 18 U/L (12-78) Alkaline Phosphatase 97 U/L (45-117) Total Creatine Kinase 49 U/L (39-308) Creatine Kinase MB 1.9 ng/ml (0.5-3.6) Troponin I 0.020 ng/ml (0-0.045) Total Protein 7.0 gm/dl (6.4-8.2) Albumin 2.6 gm/dl (3.4-5.0) Globulin 4.4 gm/dl (2.5-4.0) Albumin/Globulin Ratio 0.6 (0.9-2) Bedside Glucose 173 mg/dl (70-99) Blood Gas Sample Site R Radial Bedside Blood Gas pH (LAB) 7.44 (7.35-7.45) Bedside Blood Gas pCO2 (LAB) 26 mmHg (35-46) Bedside Blood Gas pO2 (LAB) 61 mmHg (80-95) Bedside Blood Gas HCO3 (LAB) 17 meq/L (19-24) Bedside Blood Gas Total CO2 18 mEq/l (24-31) Bedside Blood Gas Base Excess (LAB) -7.0 meq/L (-9-1.8) Bedside Blood Gas O2 Saturation 92.0 % (90-95) Mio Test NA Oxygen Delivery Device Room Air Test 07/25/16 14:54 07/27/16 05:55 07/28/16 06:51 07/29/16 05:11 Creatine Kinase MB Ratio (0-3.0) Anion Gap 9.0 mmol/L (3-11) BUN/Creatinine Ratio 11.0 (10-20) Calcium Level 8.3 mg/dl (8.5-10.1) Magnesium Level 2.0 mg/dl (1.8-2.4) Red Blood Count 4.53 M/uL (4.7-6.1) Mean Corpuscular Volume 80.1 fL (80-100) Mean Corpuscular Hemoglobin 27.2 pg (25-34) Mean Corpuscular Hemoglobin Concent 33.9 g/dl (32-36) RDW Standard Deviation 39.4 fL (36.4-46.3) RDW Coefficient of Variation 13.6 % (11.5-14.5) Mean Platelet Volume 10.6 fL (7.4-10.4) Est Creatinine Clear Calc Drug Dose 33.8 ml/min Estimated GFR () 44.9 Estimated GFR (Non- 38.7 Test 07/29/16 08:31 Date/Time Source Procedure Growth Status 07/25/16 15:21 Blood Blood Culture - Preliminary NO GROWTH TO DATE. Resulted 07/22/16 14:35 Nasal MRSA DNA Surveillance Screen - Final Specimen Negative for MRSA by DNA Probe Complete 07/22/16 12:49 Urine , Clean Catch Urine Culture - Final THREE TYPES OF ORGANISMS PRESENT, ALL... 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 New retroperitoneal mass identified. 1. Metabolic encephalopathy: 07/29: Multifactorial etiology in setting of hypothyroidism, thrush infections, vit D deficiency, dementia and new malignancy with poss mets-he continues to wax and wane, and today is much more fatigued. Infection is controlled and cultures are negative to date. Without cough symptoms, fevers, etc, pneumonia thought to be less likely at this point and Augmentin was stopped to avoid polypharmacy. Cont Fluconazole/vit D supplementation and higher dose of Synthroid. Urology evaluated pt yesterday and rec Oncology eval--Dr. Collado to see patient this morning. CT surg to drain pleural effusion. Of note, plantar calluses which were debrided by wound care provider drained some pus and culturing out coag neg staph. No abx indicated. MRI brain was unremarkable, EKG and cardiac panel negative. No other obvious causes at this time. EEG is consistent with metabolic encephalopathy. 07/28: Pt is mentating at baseline this morning, tolerating PO. Visiting with granddaughter at the bedside. Awaiting discussion with Dr. Vu. 07/27: CXR performed for increase in SOB. Increased pleural effusion was suspicious so CT chest ordered. New 5cm retroperitoneal mass was seen with multiple lung and liver nodules consistent with poss malignancy with mets. Urology notified and CT surg requested for diagnostic and therapeutic effusion poss 2/2 malignancy. Pt's daughter is aware of results. The patient is calm and comfortable at baseline mental status today. Cont ergocalciferol, synthroid , and stop Lexapro and Augmentin to avoid unnecessary polypharmacy. 2. Pleural effusion likely 2.2 malignancy-CT surg consulted for diagnostic and therapeutic tap; will take place in am. 3. AYLEEN in setting of CKD III- resolved to baseline and stable. 4. Leukocytosis 2/2 PNA-treatment per #1 and monitor daily CBC. Persistent, likely 2/2 process above. 5. Oral thrush-on Fluconazole PO after failed trial of nystatin washes as outpatient 6. h/o heart valve replacement 7. Alzheimer's dementia-h/o problems with donepezil in the past; good day/ night cycles in hospital to avoid delirium, stable exam and no behavioral issues. 8. GERD-cont Zantac 9. HLP-Zocor stopped 2/2 fluconazole use for thrush and not likely needed moving forward as it adds to polypharmacy with limited benefit. 10. Hypothyroidism-cont with Synthroid 50mcg (increased during this hospitalization) DVT proph-heparin DNR-per son who is POA Dispo--pending discussion with Dr. Vu and plan in presence of new mass and pleural effusion. Likely will return to [facility] after drainage of pleural effusion-[facility] Consultants: Neuro, Urology, CT surgery, Oncology Vaccinations: None. Current Inpatient Medications: Current Inpatient Medications Medications (Trade) Dose Ordered Sig/Jose Route Start Time Stop Time Status Last Admin Dose Admin Heparin Sodium (Porcine) (Heparin Sq 5000 Unit/0.5ml) 5,000 unit Q8 SQ 07/22/16 22:00 08/21/16 21:59 07/29/16 05:54 5,000 UNIT Acetaminophen (Tylenol Tab) 650 mg Q4H PRN PO 07/22/16 13:30 08/21/16 13:29 Ondansetron HCl (Zofran Inj) 4 mg Q6H PRN IV 07/22/16 13:30 08/21/16 13:29 Polyethylene (Miralax Powder Packet) 17 gm DAILY PRN PO 07/22/16 13:30 08/21/16 13:29 Ranitidine HCl (zANTac TAB) 150 mg BID PO 07/22/16 21:00 08/21/16 20:59 07/28/16 21:41 150 MG Fluconazole (Diflucan Tab) 50 mg QAM PO 07/25/16 09:00 07/31/16 08:59 07/28/16 08:05 50 MG Levothyroxine Sodium (Synthroid Tab) 50 mcg DAILYBB PO 07/25/16 06:30 08/24/16 06:29 07/29/16 05:55 50 MCG Ergocalciferol (Vitamin D Cap) 50,000 interunit Q4D@0900 PO 07/25/16 10:00 09/07/16 09:01 07/25/16 10:38 50,000 INTERUNIT
[2016-07-29] MEDS: FLUCONAZOLE 50 MG TAB PO SCH ×2 (09:00→10:30)
[2016-07-29] MEDS: ERGOCALCIFEROL 50,000 INTER.UNIT CAP PO SCH ×2 (09:00→12:29)
[2016-07-29] MEDS: RANITIDINE HCL 150 MG TAB PO SCH ×3 (09:00→20:30)
--- NOTE | 2016-07-29 09:30 | DIAGNOSTIC IMAGING REPORT ---
SINGLE VIEW CHEST CLINICAL HISTORY: Status post thoracentesis. FINDINGS: An AP, portable, upright chest radiograph is compared to chest x-ray and chest CT dated 07/27/2016. The examination is degraded by portable technique and patient rotation. The patient is status post midline sternotomy. The heart is top normal for projection and there is atherosclerotic calcification with uncoiling of the thoracic aorta. The pulmonary vasculature is noncongested. Evidence of congestive failure has resolved from 07/27/2016. There is a small right pleural effusion with right basilar consolidation. This has decreased in size from 07/27/2016. Atelectasis is noted at the left lung base. Chronic interstitial thickening is again noted. Pulmonary parenchymal nodularity is similar to previous. This was better characterized on the recent chest CT. No pneumothorax is seen. The skeletal structures are osteopenic. The bony thorax is grossly intact. IMPRESSION: 1. No pneumothorax is identified post procedure. 2. There is a small right pleural effusion with right basilar consolidation. The pleural effusion has significantly decreased in size from 07/27/2016. 3. Pulmonary parenchymal nodularity is similar to previous and was better characterized on the recent chest CT. Electronically signed by: Asad Gomez M.D. 07/29/2016 9:28 AM Dictated Date/Time: 07/29/2016 9:25 AM
[2016-07-29 10:14] LABS: PLEURAL FLUID TOTAL PROTEIN 4.9 g/dl
[2016-07-29 10:47] LABS: PLEURAL FLUID APPEARANCE CLOUDY; PLEURAL FLUID COLOR AMBER; PLEURAL FLUID MONONUC RELAT 53.9 %; PLEURAL FLUID POLYNUC 46.1 %; PLEURAL FLUID SOURCE RIGHT LUNG; PLEURAL FLUID WBC (A) 1121 /uL
--- NOTE | 2016-07-29 15:52 | SURGERY PROGRESS NOTE ---
DATE: 07/29/2016 SUBJECTIVE: Mr. Wells was seen today on 07/29/2016. He has been in the hospital for a week. He has a large right pleural effusion which may be getting larger. He also has a renal mass with probable metastatic and diseased locally and in the liver. I had a long talk with the patient's son, his 2 sons at the bedside. They said they noticed that he has just had a gradual decline. He really has not had shortness of breath per se. This is a patient who up until 2 weeks ago, was doing his own activities of daily living and walking down to the dining room to eat. We were asked to evaluate him for this pleural effusion. He is on room air with acceptable saturations at 92%; however, this pleural effusion is impressive. I had a long talk with the patient and his 2 sons. The patient is a bit lethargic today and his sons are worried about him. We are going to offer him a right thoracentesis, not only for therapy but also for diagnosis. It is possible we were dealing with a malignant pleural effusion. We will do a diagnostic and therapeutic tap and determine whether he needs a PleurX. TOMASA
[2016-07-29 15:53] VITALS: BP 110/75; PULSE 64; TEMP 36.6; O2SAT 94
--- NOTE | 2016-07-29 16:38 | Medical Consult ---
Consultation Date of Consultation: July 29, 2016. Attending Physician: Xenia Welch, DO Reason for Consultation: Retroperitoneal adenopathy, possible RCC? History of Present Illness Mr. 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 Workup revealed a RLL pneumonia ; patient had some productive cough, but otherwise was not symptomatic at admission. Discharged was planned on 07/25/2016, but he became lethargic and there was a concern for a CVA. CVA was not confirmed; neurology was consulted. He had an extensive workup including brain MRI, lower extremity Dopplers without cause. Neurology favored metabolic encephalopathy, which EEG has confirmed. It was then noted that he had a right pleural effusion, multiple pulmonary nodules, liver lesions and retroperitoneal adenopathy. Treatment for lung infection with antibiotic ceased. A cardiothoracic consult was placed and patient underwent diagnostic/therapeutic today uneventfully. Cytology pending. Additional history obtained from the patient 's son at bedside. Very limited history obtained from the patient as he was somnolent during most of the visit. According to the son, the patient had a decrease in energy for 2 weeks prior to admission. His baseline was maintaining an active lifestyle at his half-way. The son reports the patient does not have chest pain, cough or dyspnea. His appetite is fair. He has not had nausea or vomiting; he has not had bowel issues. He has not had issues per the son with dysuria. There is no prior history with the patient of malignancy, VTE or blood disorders. No family history of malignancy or blood disorders. Past Medical/Surgical History Medical Problems: (1) AYLEEN (acute kidney injury) Status: Acute (2) Pneumonia Status: Acute Family History Patient reports no known family medical history. Social History Smoking Status: Never Smoker Smokeless Tobacco Use: No Alcohol Use: none Drug Use: none Marital Status: , Housing Status: lives with family, half-way Occupation Status: retired Allergies Coded Allergies: Donepezil (Unverified Adverse Reaction, Unknown, CONFUSION, 12/13/14) Ezetimibe (Unverified Adverse Reaction, Unknown, UNKNOWN, 12/13/14) Current Inpatient Medications Current Inpatient Medications Medications (Trade) Dose Ordered Sig/Jose Route Start Time Stop Time Status Last Admin Dose Admin Heparin Sodium (Porcine) (Heparin Sq 5000 Unit/0.5ml) 5,000 unit Q8 SQ 07/22/16 22:00 08/21/16 21:59 Future Hold 07/29/16 05:54 5,000 UNIT Acetaminophen (Tylenol Tab) 650 mg Q4H PRN PO 07/22/16 13:30 08/21/16 13:29 Ondansetron HCl (Zofran Inj) 4 mg Q6H PRN IV 07/22/16 13:30 08/21/16 13:29 Polyethylene (Miralax Powder Packet) 17 gm DAILY PRN PO 07/22/16 13:30 08/21/16 13:29 Ranitidine HCl (zANTac TAB) 150 mg BID PO 07/22/16 21:00 08/21/16 20:59 07/28/16 21:41 150 MG Fluconazole (Diflucan Tab) 50 mg QAM PO 07/25/16 09:00 07/31/16 08:59 07/28/16 08:05 50 MG Levothyroxine Sodium (Synthroid Tab) 50 mcg DAILYBB PO 07/25/16 06:30 08/24/16 06:29 07/29/16 05:55 50 MCG Ergocalciferol (Vitamin D Cap) 50,000 interunit Q4D@0900 PO 07/25/16 10:00 09/07/16 09:01 07/25/16 10:38 50,000 INTERUNIT Review of Systems Constitutional: + fatigue, + weakness, No fever ENT: + hearing loss Respiratory: + cough, No shortness of breath, No sputum Cardiovascular: No chest pain, No edema Abdomen: No constipation, No diarrhea, No nausea, No pain, No vomiting Genitourinary - Male: + hematuria, No dysuria Neurologic: + memory loss (h/o dementia) Hematologic / Lymphatic: No abnormal bleeding/bruising, No clotting problems Physical Exam Date Time Temp Pulse Resp B/P Pulse Ox O2 Delivery O2 Flow Rate FiO2 07/29/16 07:52 36.8 86 20 110/75 90 07/29/16 07:45 90 Room Air 07/29/16 00:24 91 Room Air 07/28/16 23:54 37.0 84 18 105/66 90 Room Air 07/28/16 19:01 73 97/66 07/28/16 19:00 120 92/41 07/28/16 19:00 96 101/65 07/28/16 16:00 91 Room Air 07/28/16 15:12 36.9 87 18 118/67 91 Room Air General Appearance: no apparent distress, + thin Respiratory/Chest: lungs clear, no respiratory distress, no accessory muscle use Cardiovascular: regular rate, rhythm, no edema Abdomen/GI: normal bowel sounds, soft, no organomegaly Extremities/Musculoskelatal: no calf tenderness, no pedal edema Neurologic/Psych: + disoriented Skin: normal color, no rash Laboratory Results 07/27/16 05:55 07/28/16 06:51 07/27/16 05:55 07/29/16 05:11 Test 07/27/16 05:55 07/28/16 06:51 07/29/16 00:00 07/29/16 05:11 Red Blood Count 4.37 M/uL (4.7-6.1) 4.53 M/uL (4.7-6.1) Mean Corpuscular Volume 80.3 fL (80-100) 80.1 fL (80-100) Mean Corpuscular Hemoglobin 27.0 pg (25-34) 27.2 pg (25-34) Mean Corpuscular Hemoglobin Concent 33.6 g/dl (32-36) 33.9 g/dl (32-36) RDW Standard Deviation 38.9 fL (36.4-46.3) 39.4 fL (36.4-46.3) RDW Coefficient of Variation 13.4 % (11.5-14.5) 13.6 % (11.5-14.5) Mean Platelet Volume 10.5 fL (7.4-10.4) 10.6 fL (7.4-10.4) Anion Gap 9.0 mmol/L (3-11) Est Creatinine Clear Calc Drug Dose 36.0 ml/min 33.8 ml/min Estimated GFR () 48.5 44.9 Estimated GFR (Non- 41.9 38.7 BUN/Creatinine Ratio 11.0 (10-20) Calcium Level 8.3 mg/dl (8.5-10.1) Magnesium Level 2.0 mg/dl (1.8-2.4) Pleural Fluid Source RIGHT LUNG Pleural Fluid Color SANJANA Pleural Fluid Appearance CLOUDY Pleural Fluid WBC 1121 /uL Pleural Fluid RBC 06843 /uL Pleural Fluid pH 7.47 (7.3-7.4) Pleural Fluid Polynuclear WBCs % 46.1 % Pleural Fluid Mononuclear WBCs % 53.9 % Pleural Fluid Total Protein 4.9 g/dl Pleural Fluid LDH 173 IU Pleural Fluid Glucose 118 mg/dl Pleural Fluid Amylase 19 U/L Head CT from 07/22/2016: No mass, hematoma, midline shift or acute infarct. Findings of rather diffuse age-related chronic small vessel changes well as atrophy. Bilateral lower extremity venous Dopplers from 07/25/2016: No DVT within the right or left lower extremity. Brain MRI from 07/25/2016: No areas of restricted diffusion to suggest acute infarction. No mass, hematoma or midline shift. Considerable chronic small vessel change and atrophy. CT chest from 07/2016: Large right effusion with right lower lobe atelectatic change. Several nodular densities left lung base measuring up to 8 mm. Probable right upper lobe nodular density measuring 7 mm. The nodules possibly represent metastatic disease. No definite lytic or blastic process of the bony structures. Limited evaluation of the upper abdomen demonstrates hypodensities peripheral aspect right hepatic lobe. Smaller hypodense nodular densities of the posterior and inferior right hepatic lobe as well as anterior left hepatic lobe. Possibility of hepatic metastatic disease considered. Adenopathy versus mass of the upper abdomen possibly involving the lower aspect of the right kidney. A renal neoplasm or pathologic adenopathy must be considered. Several additional nonspecific nodes involving the retroperitoneum and peripancreatic and periportal regions. CT of the abdomen/pelvis from : Potential hypodensities within the liver, likely metastatic. Right pleural effusion with right lower lobe atelectatic change. Right paravertebral mass in continuity with medial aspect of the right kidney, 10 x 6 cm, potential vascular component. Right kidney itself is enlarged. A renal neoplastic process must be excluded. Upper abdominal adenopathy noted. Inguinal regions appear unremarkable. Inferior vena cava potential encompassed by and/or displaced anteriorly by retroperitoneal mass. Several nodes are identified in the right perinephric space. Chest x-ray from 07/29/2016: Pulmonary vasculature is not congested. Evidence of congestive failure resolved from 07/27/2016. Small right pleural effusion with basilar consolidation. This is decreased from last imaging on 07/27/2016. Pulmonary parenchymal nodularity similar to previous exams. Assessment & Plan 1. 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 intrapelvic and intraabdominal lymph nodes, liver, lung and right pleural space with effusion * Performance status poor currently around 3 * Discussed with son that given patient's age, comorbidities and performance status, palliative treatment is not likely to be able to be tolerated by patient , may increase suffering * Pathology pending from thoracentesis today to verify if in fact patient has RCC * Discussed briefly about Stage IV systemic treatment with son * Son plans to discuss with family members about findings, diagnosis, future plans for their father in respect to palliation * Informed son that Dr. Collado would be by later to discuss with him/family further 2. Metabolic encephalopathy * Management per hospitalist/neurology team 3. Anemia likely of multiple mechanisms * Iron studies adequate as well folate, vitamin B 12 in range, but borderline low * Creatinine in mid 1 range, so anemia in CKD could contribute * Anemia in malignancy * Hgb stable in past few days * Continue to monitor CBC daily * Transfuse if Hgb < 7-8 g/dL or patient symptomatic with cardiopulmonary symptoms from anemia Will continue to follow along while patient is hospitalized. Dr. Collado is attending medical oncologist on the case. Thanks for the consult I performed history and physical examination of the patient (07/29/2016). I have discussed the patient's case, impression and plan with Neisha Mike PA-C. Her note reflects my findings and plan. Also spoke with the patient 's son who was at bedside. In summary, he is 86-year-old male, who noticed to have large right paravertebral soft tissue mass lesion eating from the right kidney measuring around 10 x 6 cm, has abdominal lymphadenopathy, liver lesion, lung lesion, right pleural effusion, underwent thoracocentesis, cytology pending, suspecting primary renal cancer with multiple metastatic disease, declining performed status noted, he is in the half-way for the last 3 to 4 months, intermittently lethargic status noted, declining performed status over the last few weeks, no hematuria, mild back pain present for the last few weeks/months. Will wait for pleural fluid cytology result. If it is nondiagnostic, I would not consider for further diagnostic workup as he is not a candidate for systemic chemotherapy treatment. I also discussed with them patient 's son regarding treatment options for pleural effusion including PleurX catheter placement and pleurodesis. Already seen by Dr. Auguste for the same. Would provide supportive and symptomatic treatment. I had an extensive discussion with the patient 's son regarding that. Patient has already signed advanced directive earlier. Will follow up. Dr. Quentin Collado Hem/Onc.
[2016-07-30 00:41] VITALS: BP 110/67; PULSE 77; TEMP 37.3; O2SAT 90
[2016-07-30 00:54] VITALS: O2SAT 94
--- NOTE | 2016-07-30 01:29 | OPERATIVE REPORT ---
DATE OF OPERATION: 07/29/2016 PREOPERATIVE DIAGNOSIS: Right pleural effusion. POSTOPERATIVE DIAGNOSIS: Right pleural effusion. PROCEDURE: Right thoracentesis under ultrasound guidance. SURGEON: Mann CORRAL MD. ATHLETIC COORDINATOR: TIFFANIE Burgos. ANESTHESIA: Local. SPECIFICS OF PROCEDURE: An 86-year-old male who has probable metastatic disease and a very large right pleural effusion. We do not have a diagnosis. I had a long discussion with the patient and his sons. We elected to proceed with a right thoracentesis. The patient in a semi left lateral decubitus position, his right chest was evaluated, and we found a good window for the thoracentesis. The patient was prepped and draped in usual sterile fashion. Skin wheal was raised with 25 gauge needle, 1% Xylocaine. A large bore needle was used to anesthetize the deeper tissues, and we got free flowing rust-colored fluid. A guidewire was inserted through the needle and needle removed. Introducer sheath was gently dilated, opened in the tract and then removed. A triple lumen catheter was insufflated with a guidewire and the guidewire removed. 1700 mL of a rust-colored fluid was drained. His x-ray looked much better when we finished. I removed the triple lumen catheter and put in antimicrobial dressings over the puncture site. He tolerated this well, and as stated, his x-ray looks better, although we did not drain him completely dry. He had no pain or coughing with this drainage of fluid. I attest to the content of the Intraoperative Record and any orders documented therein. Any exceptio ns are noted below.
[2016-07-30] MEDS: LEVOTHYROXINE 50 MCG TAB PO SCH (05:51)
[2016-07-30 07:35] VITALS: BP 114/71; PULSE 80; TEMP 36.6; O2SAT 92
[2016-07-30 07:45] VITALS: O2SAT 92
[2016-07-30] MEDS: FLUCONAZOLE 50 MG TAB PO SCH (08:02)
[2016-07-30] MEDS: RANITIDINE HCL 150 MG TAB PO SCH ×2 (08:02→21:06)
--- NOTE | 2016-07-30 08:32 | DIAGNOSTIC IMAGING REPORT ---
SINGLE VIEW CHEST CLINICAL HISTORY: Pleural effusion. FINDINGS: An AP, portable, upright chest radiograph is compared to chest x-ray and chest CT dated 07/29/2016. The examination is degraded by portable technique and patient rotation. The patient is status post midline sternotomy. The heart is top normal for projection and there is atherosclerotic calcification with uncoiling of the thoracic aorta. The pulmonary vasculature is noncongested. There is a small right pleural effusion with right basilar consolidation. This is unchanged to slightly increased in size from yesterday. Atelectasis is noted at the left lung base. A trace left pleural effusion suggested. Chronic interstitial thickening is again noted. Pulmonary parenchymal nodularity is similar to previous. This was better characterized on the recent chest CT. No pneumothorax is seen. The skeletal structures are osteopenic. The bony thorax is grossly intact. IMPRESSION: 1. There is a small right pleural effusion with right basilar consolidation, unchanged to slightly increased in size from yesterday. 2. Pulmonary parenchymal nodularity is similar to previous and was better characterized on the recent chest CT. 3. Suspect a trace left pleural effusion. Electronically signed by: Asad Gomez M.D. 07/30/2016 8:31 AM Dictated Date/Time: 07/30/2016 8:28 AM
--- NOTE | 2016-07-30 10:53 | SURGERY PROGRESS NOTE ---
DATE: 07/30/2016 DATE: 07/30/2016. Mr. Wells was seen today on 07/30/2016. We performed a thoracentesis yesterday for about 1700 mL. pH was 7.47. The LDH is only 173. It is still unclear to me whether we are dealing with a malignant effusion. It certainly does not appear to be infected. I had a long talk with the patient's son today. His x-ray does not look much different. He does have a small right pleural effusion, but I do not think this is effectively clinically. At this point, I believe that we are going to proceed with comfort measures, giving the size of the tumor mass. I am curious to see what the cytology shows. It is not causing him much problems clinically.
--- NOTE | 2016-07-30 13:03 | Palliative Care Progress Note ---
Palliative Care Progress Note Date of Service July 30, 2016. Subjective Meeting with patient and family tomorrow at 0800. Official consult to be complete at that time.
[2016-07-30 15:09] VITALS: BP 95/64; PULSE 73; TEMP 36.5; O2SAT 92
[2016-07-30] MEDS ORDERED: MAGIC MOUTHWASH PO PRN (15:15)
[2016-07-30] MEDS ORDERED: LIDOCAINE HCL 2% VISC SOLN 20 ML UDC MT PRN (22:30)
--- NOTE | 2016-07-30 22:31 | Progress Note ---
Medicine Progress Note Date & Time of Visit: July 30, 2016 at 16:29. Subjective 86 yoM with new malignancy -asymptomatic today -noted slight increase in work of breathing today but patient denies SOB -tolerating PO -states that he feels comfortable -sleeps much of the day -son at bedside and discussed plan Objective Last 8 Hrs Date Time Temp Pulse Resp B/P Pulse Ox O2 Delivery O2 Flow Rate FiO2 07/30/16 15:09 36.5 73 17 95/64 92 Room Air Physical Exam: GEN: WNWD, in no acute distress, lethargic but easily awoken. At baseline mental status. HEENT: NC/AT, normal sclerae, MMM. CARDIO: reg rate, S1/2 heard without m/g/r LUNGS: CTA bilaterally, diminished breath sounds at right base ABD: soft, non-tender, non-distended, no rebound or guarding, +BS EXTREMITY: no LE swelling or edema, extremities are warm and well-perfused N/M: generalized weakness SKIN: warma nd dry. Nondraining open ulcers on plantar feet bilaterally covered with dry dressing, no surrounding erythema Laboratory Results: 07/28/16 06:51 07/27/16 05:55 07/29/16 05:11 Test 07/22/16 11:10 07/22/16 12:49 07/22/16 16:00 07/23/16 04:00 Prothrombin Time 11.2 SECONDS (9.0-12.0) Prothromb Time International Ratio 1.0 (0.9-1.1) Activated Partial Thromboplast Time 28.7 SECONDS (21.0-31.0) Partial Thromboplastin Ratio 1.1 Direct Bilirubin < 0.1 mg/dl (0-0.2) Thyroid Stimulating Hormone (TSH) 6.660 uIu/ml (0.300-4.500) Urine Color DK YELLOW Urine Appearance CLOUDY (CLEAR) Urine pH 5.0 (4.5-7.5) Urine Specific [place] 1.022 (1.000-1.030) Urine Protein 2+ (NEG) Urine Glucose (UA) NEG (NEG) Urine Ketones TRACE (NEG) Urine Occult Blood 3+ (NEG) Urine Nitrite NEG (NEG) Urine Bilirubin NEG (NEG) Urine Urobilinogen NEG (NEG) Urine Leukocyte Esterase TRACE (NEG) Urine WBC (Auto) 10-30 /hpf (0-5) Urine RBC (Auto) >30 /hpf (0-4) Urine Hyaline Casts (Auto) 1-5 /lpf (0-5) Urine Epithelial Cells (Auto) 20-30 /lpf (0-5) Urine Bacteria (Auto) NEG (NEG) Urine Pathogenic Casts 1-5 GRANULAR CASTS /lpf (0) Urine Mucus PRESENT (NONE PRSENT) Urine Yeast (Auto) (NONE PRSENT) Urine Random Creatinine 210.0 mg/dl Urine Random Sodium 75 mEq/L Influenza Type A (RT-PCR) Neg for Influ A (NEG) Influenza Type B (RT-PCR) Neg for Influ B (NEG) Immature Granulocyte % (Auto) 0.5 % White Blood Count 14.16 K/uL (4.8-10.8) Red Blood Count 4.46 M/uL (4.7-6.1) Hemoglobin 12.3 g/dL (14.0-18.0) Hematocrit 36.4 % (42-52) Mean Corpuscular Volume 81.6 fL (80-100) Mean Corpuscular Hemoglobin 27.6 pg (25-34) Mean Corpuscular Hemoglobin Concent 33.8 g/dl (32-36) Platelet Count 152 K/uL (130-400) Mean Platelet Volume 10.4 fL (7.4-10.4) Neutrophils (%) (Auto) 71.6 % Lymphocytes (%) (Auto) 13.2 % Monocytes (%) (Auto) 12.7 % Eosinophils (%) (Auto) 1.8 % Basophils (%) (Auto) 0.2 % Neutrophils # (Auto) 10.13 K/uL (1.4-6.5) Lymphocytes # (Auto) 1.87 K/uL (1.2-3.4) Monocytes # (Auto) 1.80 K/uL (0.11-0.59) Eosinophils # (Auto) 0.26 K/uL (0-0.5) Basophils # (Auto) 0.03 K/uL (0-0.2) Immature Granulocyte # (Auto) 0.07 K/uL (0.00-0.02) Random Vancomycin Level 12.6 mcg/ml Test 07/25/16 05:18 07/25/16 13:59 07/25/16 14:07 07/25/16 14:36 Estimated Average Glucose 157 mg/dl Hemoglobin A1c 7.1 % (4.5-5.6) Iron Level 50 mcg/dl (35-175) Total Iron Binding Capacity 165 mcg/dl (250-450) Ferritin 411.8 ng/ml (8.0-388.0) Vitamin B12 Level 285 pg/mL (211-911) 25-Hydroxy Vitamin D Total 7.1 ng/ml (30-100) Folate 8.51 ng/mL (>5.38) Total Bilirubin 0.3 mg/dl (0.2-1) Aspartate Amino Transf (AST/SGOT) 23 U/L (15-37) Alanine Aminotransferase (ALT/SGPT) 18 U/L (12-78) Alkaline Phosphatase 97 U/L (45-117) Total Creatine Kinase 49 U/L (39-308) Creatine Kinase MB 1.9 ng/ml (0.5-3.6) Troponin I 0.020 ng/ml (0-0.045) Total Protein 7.0 gm/dl (6.4-8.2) Albumin 2.6 gm/dl (3.4-5.0) Globulin 4.4 gm/dl (2.5-4.0) Albumin/Globulin Ratio 0.6 (0.9-2) Vitamin B1 Level <7 nmol/L (8-30) Bedside Glucose 173 mg/dl (70-99) Blood Gas Sample Site R Radial Bedside Blood Gas pH (LAB) 7.44 (7.35-7.45) Bedside Blood Gas pCO2 (LAB) 26 mmHg (35-46) Bedside Blood Gas pO2 (LAB) 61 mmHg (80-95) Bedside Blood Gas HCO3 (LAB) 17 meq/L (19-24) Bedside Blood Gas Total CO2 18 mEq/l (24-31) Bedside Blood Gas Base Excess (LAB) -7.0 meq/L (-9-1.8) Bedside Blood Gas O2 Saturation 92.0 % (90-95) Mio Test NA Oxygen Delivery Device Room Air Test 07/25/16 14:54 07/27/16 05:55 07/28/16 06:51 07/29/16 00:00 Creatine Kinase MB Ratio (0-3.0) Anion Gap 9.0 mmol/L (3-11) BUN/Creatinine Ratio 11.0 (10-20) Calcium Level 8.3 mg/dl (8.5-10.1) Magnesium Level 2.0 mg/dl (1.8-2.4) Red Blood Count 4.53 M/uL (4.7-6.1) Mean Corpuscular Volume 80.1 fL (80-100) Mean Corpuscular Hemoglobin 27.2 pg (25-34) Mean Corpuscular Hemoglobin Concent 33.9 g/dl (32-36) RDW Standard Deviation 39.4 fL (36.4-46.3) RDW Coefficient of Variation 13.6 % (11.5-14.5) Mean Platelet Volume 10.6 fL (7.4-10.4) Pleural Fluid Source RIGHT LUNG Pleural Fluid Color SANJANA Pleural Fluid Appearance CLOUDY Pleural Fluid WBC 1121 /uL Pleural Fluid RBC 22536 /uL Pleural Fluid pH 7.47 (7.3-7.4) Pleural Fluid Polynuclear WBCs % 46.1 % Pleural Fluid Mononuclear WBCs % 53.9 % Pleural Fluid Total Protein 4.9 g/dl Pleural Fluid LDH 173 IU Pleural Fluid Glucose 118 mg/dl Pleural Fluid Amylase 19 U/L Test 07/29/16 05:11 Est Creatinine Clear Calc Drug Dose 33.8 ml/min Estimated GFR () 44.9 Estimated GFR (Non- 38.7 Date/Time Source Procedure Growth Status 07/25/16 15:21 Blood Blood Culture - Preliminary NO GROWTH TO DATE. Resulted 07/22/16 14:35 Nasal MRSA DNA Surveillance Screen - Final Specimen Negative for MRSA by DNA Probe Complete 07/22/16 12:49 Urine , Clean Catch Urine Culture - Final THREE TYPES OF ORGANISMS PRESENT, ALL... Complete 07/29/16 00:00 Pleural Fluid (Thoracentesis) Right Fungal Smear - Final Resulted 07/29/16 00:00 Pleural Fluid (Thoracentesis) Right Fungal Culture Pending Resulted Diagnostic Imaging: SINGLE VIEW CHEST CLINICAL HISTORY: Pleural effusion. FINDINGS: An AP, portable, upright chest radiograph is compared to chest x-ray and chest CT dated 07/29/2016. The examination is degraded by portable technique and patient rotation. The patient is status post midline sternotomy. The heart is top normal for projection and there is atherosclerotic calcification with uncoiling of the thoracic aorta. The pulmonary vasculature is noncongested. There is a small right pleural effusion with right basilar consolidation. This is unchanged to slightly increased in size from yesterday. Atelectasis is noted at the left lung base. A trace left pleural effusion suggested. Chronic interstitial thickening is again noted. Pulmonary parenchymal nodularity is similar to previous. This was better characterized on the recent chest CT. No pneumothorax is seen. The skeletal structures are osteopenic. The bony thorax is grossly intact. IMPRESSION: 1. There is a small right pleural effusion with right basilar consolidation, unchanged to slightly increased in size from yesterday. 2. Pulmonary parenchymal nodularity is similar to previous and was better characterized on the recent chest CT. 3. Suspect a trace left pleural effusion. Assessment & Plan 86 yo M prison resident presents with worsening weakness and confusion for two weeks, thought to have RLL pneumonia, however, now appears more consistent with malignant effusion. New retroperitoneal mass identified. Urology and Oncology evaluated and recommended conservative management. family considering comfort care but waiting on pleural fluid path. Palliative care to see him in am. Likely back to [facility] on Hospice. 1. Metabolic encephalopathy: 07/30: No changes today-no lab draws in am. Minimize vitals at night for comfort. 07/29: Multifactorial etiology in setting of hypothyroidism, thrush infections, vit D deficiency, dementia and new malignancy with poss mets-he continues to wax and wane, and today is much more fatigued. Infection is controlled and cultures are negative to date. Without cough symptoms, fevers, etc, pneumonia thought to be less likely at this point and Augmentin was stopped to avoid polypharmacy. Cont Fluconazole/vit D supplementation and higher dose of Synthroid. Urology evaluated pt yesterday and rec Oncology eval--Dr. Collado to see patient this morning. CT surg to drain pleural effusion. Of note, plantar calluses which were debrided by wound care provider drained some pus and culturing out coag neg staph. No abx indicated. MRI brain was unremarkable, EKG and cardiac panel negative. No other obvious causes at this time. EEG is consistent with metabolic encephalopathy. 07/28: Pt is mentating at baseline this morning, tolerating PO. Visiting with granddaughter at the bedside. Awaiting discussion with Dr. Vu. 07/27: CXR performed for increase in SOB. Increased pleural effusion was suspicious so CT chest ordered. New 5cm retroperitoneal mass was seen with multiple lung and liver nodules consistent with poss malignancy with mets. Urology notified and CT surg requested for diagnostic and therapeutic effusion poss 2/2 malignancy. Pt's daughter is aware of results. The patient is calm and comfortable at baseline mental status today. Cont ergocalciferol, synthroid , and stop Lexapro and Augmentin to avoid unnecessary polypharmacy. 2. Pleural effusion likely 2.2 malignancy-CT surg consulted for diagnostic and therapeutic tap on 07/29. 1500 cc out-path pending. Effusion seems to be building back up again. 3. AYLEEN in setting of CKD III- resolved to baseline and stable. 4. Leukocytosis 2/2 malignancy-treatment per #1 5. Oral thrush-on Fluconazole PO after failed trial of nystatin washes as outpatient, tomorrow is Day 09/13 but re-evaluate need as thrush still reported and pt having discomfort with swallowing. 6. h/o heart valve replacement 7. Alzheimer's dementia-h/o problems with donepezil in the past; good day/ night cycles in hospital to avoid delirium, stable exam and no behavioral issues. 8. GERD-cont Zantac 9. HLP-Zocor stopped 2/2 fluconazole use for thrush and not likely needed moving forward as it adds to polypharmacy with limited benefit. 10. Hypothyroidism-cont with Synthroid 50mcg (increased during this hospitalization) -needs repeat TSH in 6 weeks. DVT proph-heparin DNR-per son who is POA Dispo--Likely to [facility] on Hospice. PC consult with family at 0800 tomorrow to decide. [facility] Consultants: Neuro, Urology, CT surgery, Oncology Vaccinations: None. Current Inpatient Medications: Current Inpatient Medications Medications (Trade) Dose Ordered Sig/Jose Route Start Time Stop Time Status Last Admin Dose Admin Heparin Sodium (Porcine) (Heparin Sq 5000 Unit/0.5ml) 5,000 unit Q8 SQ 07/22/16 22:00 08/21/16 21:59 Future Hold 07/29/16 05:54 5,000 UNIT Acetaminophen (Tylenol Tab) 650 mg Q4H PRN PO 07/22/16 13:30 08/21/16 13:29 07/30/16 08:02 650 MG Ondansetron HCl (Zofran Inj) 4 mg Q6H PRN IV 07/22/16 13:30 08/21/16 13:29 Polyethylene (Miralax Powder Packet) 17 gm DAILY PRN PO 07/22/16 13:30 08/21/16 13:29 Ranitidine HCl (zANTac TAB) 150 mg BID PO 07/22/16 21:00 08/21/16 20:59 07/30/16 08:02 150 MG Fluconazole (Diflucan Tab) 50 mg QAM PO 07/25/16 09:00 07/31/16 08:59 07/30/16 08:02 50 MG Levothyroxine Sodium (Synthroid Tab) 50 mcg DAILYBB PO 07/25/16 06:30 08/24/16 06:29 07/30/16 05:51 50 MCG Ergocalciferol 50,000 interunit Q4D@0900 PO 07/25/16 10:00 09/07/16 09:01 07/29/16 12:29 50,000 INTERUNIT Dexamethasone/ Nystatin/ Diphenhydramine HCl/Sucrose/ Microcrystalline Cellulose/Barcode (Decadron Conc Soln/Mycostatin Susp/Benadryl Syrup/Ora-Sweet Syrup/Ora-Plus Susp. Vehicle) QID PRN PO 07/30/16 16:00 08/29/16 15:59
[2016-07-31 00:14] VITALS: BP 125/75; PULSE 87; TEMP 36.8; O2SAT 92
[2016-07-31] MEDS: LEVOTHYROXINE 50 MCG TAB PO SCH (06:15)
[2016-07-31 07:30] VITALS: BP 103/64; PULSE 81; TEMP 36.7; O2SAT 92
[2016-07-31 07:45] VITALS: O2SAT 92
[2016-07-31] MEDS: RANITIDINE HCL 150 MG TAB PO SCH ×2 (07:48→20:53)
[2016-07-31] MEDS: DEXAMETHASONE CONC SOLN 3.75 MG, NYSTATIN SUSP 30 ML, DiphenhydrAMINE HCL SYRUP 300 MG,... PO PRN ×10 (09:01→16:48)
[2016-07-31] MEDS ORDERED: FENTANYL 12 MCG/HR TDSY TD SCH (10:15)
[2016-07-31] MEDS ORDERED: NURSING VERBAL MED ORDER ONE (10:15)
--- NOTE | 2016-07-31 10:24 | Palliative Care Consultation ---
Consultation Date of Consultation: July 31, 2016. Requesting Physician: Dr. Welch Attending Physician: Dr. Welch Reason for Consultation: Goals of care History of Present Illness This 86 year old gentleman presented from the ED with c/o increased weakness, fatigue, and decreased appetite. He came from [facility] living. Workup revealed what was believed to be a RLL pneumonia- he was started on abx and admitted to medical unit. He did not show much improvement as far as strength and his functional status. About six days ago he had altered mental status/unresponsiveness and a stroke alert was called. No CVA was found, seizure apparently ruled out. Incidentally on CT abd/pelvis, a 10x6cm mass was found on the right kidney suspicious of malignancy. Also had a large right pleural effusion- over a liter was drained by Dr. Auguste during thoracentesis. Pathology still pending but again this is suspicious for malignant pleural effusion. Patient also has a history of dementia/Alzheimer's disease, GERD, heart valve replacement. Given his advanced age, somewhat rapid decline, and the possibility now of malignancy, palliative care consulted to assist with establishing goals of care. Patient is somnolent but does awaken to verbal stimuli. He seems incredibly fatigued even just talking and taking deep breaths during exam. He denied any pain or discomfort. No SOB and family reports he has been comfortable throughout his stay. Patient unable to participate in goals of care conversation. I met with the patient's family: son/MOUNA Gutierrez and his Virgen, and another son Brooks. They described the patient's medical conditions and seem to understanding well. They state that the goal at this point is for comfort and would ultimately like patient to go back to [facility] with hospice. They are still however waiting to hear about the pathology results and to see what needs to be done about the reaccumulating pleural effusion. Past Medical/Surgical History Medical History: as above Social History Smoking Status: Never Smoker History of Alcohol Use: No Drug Use: none Marital Status: , Housing Status: care home Occupation Status: retired Review of Systems Constitutional: + weakness Respiratory: No shortness of breath, No wheezing Cardiac: No chest pain Abdomen: + pain (occasional and with palpation of RUQ/flank), No nausea, No vomiting Allergies Coded Allergies: Donepezil (Unverified Adverse Reaction, Unknown, CONFUSION, 12/13/14) Ezetimibe (Unverified Adverse Reaction, Unknown, UNKNOWN, 12/13/14) Medications Current Inpatient Medications Medications (Trade) Dose Ordered Sig/Jose Route Start Time Stop Time Status Last Admin Dose Admin Heparin Sodium (Porcine) (Heparin Sq 5000 Unit/0.5ml) 5,000 unit Q8 SQ 07/22/16 22:00 08/21/16 21:59 Future Hold 07/29/16 05:54 5,000 UNIT Acetaminophen (Tylenol Tab) 650 mg Q4H PRN PO 07/22/16 13:30 08/21/16 13:29 07/30/16 08:02 650 MG Ondansetron HCl (Zofran Inj) 4 mg Q6H PRN IV 07/22/16 13:30 08/21/16 13:29 Polyethylene (Miralax Powder Packet) 17 gm DAILY PRN PO 07/22/16 13:30 08/21/16 13:29 Ranitidine HCl (zANTac TAB) 150 mg BID PO 07/22/16 21:00 08/21/16 20:59 07/31/16 07:48 150 MG Levothyroxine Sodium (Synthroid Tab) 50 mcg DAILYBB PO 07/25/16 06:30 08/24/16 06:29 07/31/16 06:15 50 MCG Ergocalciferol 50,000 interunit Q4D@0900 PO 07/25/16 10:00 09/07/16 09:01 07/29/16 12:29 50,000 INTERUNIT Dexamethasone/ Nystatin/ Diphenhydramine HCl/Sucrose/ Microcrystalline Cellulose/Barcode (Decadron Conc Soln/Mycostatin Susp/Benadryl Syrup/Ora-Sweet Syrup/Ora-Plus Susp. Vehicle) QID PRN PO 07/30/16 16:00 08/29/16 15:59 07/31/16 09:01 5 ML Lidocaine HCl (Viscous Lidocaine 2% Soln) 20 ml TID PRN MT 07/30/16 22:30 08/29/16 22:29 Physical Exam Date Time Temp Pulse Resp B/P Pulse Ox O2 Delivery O2 Flow Rate FiO2 07/31/16 07:30 36.7 81 20 103/64 92 Room Air 07/31/16 00:25 Room Air 07/31/16 00:14 36.8 87 20 125/75 92 Room Air 07/30/16 16:00 Room Air 07/30/16 15:09 36.5 73 17 95/64 92 Room Air General Appearance: no apparent distress ENT: hearing grossly normal Neck: supple, no JVD Respiratory: no respiratory distress, no accessory muscle use, + decreased breath sounds (RLL especially) Cardiovascular: regular rate, rhythm, + normal peripheral pulses Abdomen: normal bowel sounds, soft, + tenderness Neurologic/Psychiatric: alert, + disoriented Assessment & Plan Palliative Performance Scale: 30 % Problem list: Weakness Altered mental status/metabolic encephalopathy Right pleural effusion- 1500ml pleural fluid removed, pathology pending Retroperitoneal mass, right sided, with multiple lug and liver nodules- suspicious for malignancy AYLEEN on CKD Alzheimer's/dementia GERD Thrush Goals of care (Z51.5) Palliative care recommendations: -DNR/DNI per previous discussion -Goal is strictly for comfort -Eventually to go back to [facility] with hospice, case management is following -Waiting for pathology results -Pleural effusion reaccumulating, but not much change now. Patient not symptomatic at this time and Dr. Auguste has not mentioned needing further intervention. -Patient has living will, son will bring in. We will complete a POLST before discharge to coincide with wishes. Thank you kindly for this consult. I will follow.
--- NOTE | 2016-07-31 13:55 | SURGERY PROGRESS NOTE ---
DATE: 07/31/2016 DATE: 07/31/2016. Mr. Wells was seen today. Multiple family members at the bedside. The cytology from the pleural fluid is negative for carcinoma. Be it as it may, this is probably a paramalignant effusion. The patient does have a large mass in his right kidney with extension into the vena cava and multiple lymph nodes in the area. At this point, I would not intervene in his right chest unless he becomes very short of breath. I explained to the patient's family that we could easily insert a PleurX catheter should the need arise but at this point I do not think that exists.
--- NOTE | 2016-07-31 14:54 | Progress Note ---
Internal Med Progress Note Date of Service: July 31, 2016. Provider Documentation: SUBJECTIVE: Seen and examined at bedside. Complained of generalized abd pain this morning which currently resolved. Denies chest pain, SOB, nausea. Family at bedside. Offers no complaints. Mental status at baseline per family OBJECTIVE: Vital Signs-as noted below GEN: WNWD, in no acute distress, +lethargy HEENT: NC/AT, normal sclerae, EOMI CARDIO: S1, S2, No Murmur LUNGS: CTA bilaterally, diminished breath sounds at right base ABD: soft, non-tender, non-distended, +BS EXTREMITY: no edema SKIN: warm and dry. 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 ASSESSMENT & PLAN: Patient is 86 yr male from [facility] presented with worsening weakness and confusion for 2 weeks. Diagnosed to have RLL pneumonia and parapneumonic effusion. New retroperitoneal mass identified. Urology and Oncology evaluated and recommended conservative management. Family considered comfort care. Palliative care on board. Plan to discharge to [facility] with Hospice in place. Metabolic encephalopathy: Could be Multifactorial etiology: In setting of hypothyroidism, thrush infections, vit D deficiency, dementia and new malignancy with possible mets CT/MRI head: No acute process EEG is consistent with metabolic encephalopathy. Appreciate Neurology input Resolved. 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 Palliative care following as well No a got systemic chemotherapy candidate RLL Pneumonia and Pleural effusion: Likely parapneumonic S/P diagnostic and therapeutic tap on 07/29. [address] surgery help S/P Vanco and Cefepime and Augmentin AYLEEN on CKD III: Resolved Cr now at baseline Monitor renal function Leukocytosis: Likely secondary to malignancy Oral thrush-on Fluconazole PO after failed trial of nystatin washes as outpatient Day 09/13 H/O heart valve replacement Alzheimer's dementia: h/o problems with donepezil in the past stable exam GERD continue Zantac HLP: Zocor stopped 2/2 fluconazole use for thrush and not likely needed moving forward as it adds to polypharmacy with limited benefit Hypothyroidism: continue with Synthroid 50mcg (increased during this hospitalization) Needs repeat TSH in 6 weeks. DVT Px: heparin SQ Code Status: DNR Disposition: Likely to [facility] with Hospice in place tomorrow Vital Signs: Date Time Temp Pulse Resp B/P Pulse Ox O2 Delivery O2 Flow Rate FiO2 07/31/16 07:45 92 Room Air 07/31/16 07:30 36.7 81 20 103/64 92 Room Air 07/31/16 00:25 Room Air 07/31/16 00:14 36.8 87 20 125/75 92 Room Air 07/30/16 16:00 Room Air 07/30/16 15:09 36.5 73 17 95/64 92 Room Air
[2016-07-31 15:09] VITALS: BP 100/51; PULSE 94; TEMP 37.2; O2SAT 91
[2016-07-31 16:08] VITALS: O2SAT 91
[2016-07-31] MEDS: CHECK FENTANYL PATCH PLACEMENT SCH (16:47)
[2016-07-31 23:08] VITALS: BP 103/84; PULSE 95; TEMP 37.2; O2SAT 92
[2016-08-01] MEDS: LEVOTHYROXINE 50 MCG TAB PO SCH (06:22)
[2016-08-01] MEDS: CHECK FENTANYL PATCH PLACEMENT SCH ×2 (07:19)
[2016-08-01 08:00] VITALS: O2SAT 93
[2016-08-01 08:03] VITALS: BP 101/51; PULSE 98; TEMP 37; O2SAT 93
[2016-08-01] MEDS: DEXAMETHASONE CONC SOLN 3.75 MG, NYSTATIN SUSP 30 ML, DiphenhydrAMINE HCL SYRUP 300 MG,... PO PRN ×5 (08:18)
[2016-08-01] MEDS: RANITIDINE HCL 150 MG TAB PO SCH (08:18)
--- NOTE | 2016-08-01 08:47 | Surgery Progress Note ---
Subjective Date of Service: August 01, 2016. Pt. resting in bed. He denies complaints. Objective Vitals Date Time Temp Pulse Resp B/P Pulse Ox O2 Delivery O2 Flow Rate FiO2 08/01/16 08:03 37.0 98 18 101/51 93 Room Air 07/31/16 23:59 Room Air 07/31/16 23:08 37.2 95 18 103/84 92 07/31/16 16:08 91 Room Air 07/31/16 15:09 37.2 94 19 100/51 91 Room Air Physical Exam General: No distress CV: + RRR Pulmonary: + accessory muscle use, + pertinent finding (slight decrease at right base), No respiratory distress Assessment & Plan 86 year old male with right pleural effusion -thoracentesis performed -cultures (-) -path (-) for malignancy -will follow pt. clinically: -if pleural effusion enlarges may consider repeat thoracentesis or placement of pleurex catheter
--- NOTE | 2016-08-01 12:08 | Progress Note ---
Internal Med Progress Note Date of Service: August 01, 2016. Provider Documentation: SUBJECTIVE: Seen and examined at bedside. States having generalized weakness and poor oral intake. Denies any pain. Also denies chest pain, SOB, nausea. Family at bedside. Offers no other complaints. Mental status at baseline per family OBJECTIVE: Vital Signs-as noted below GEN: WNWD, in no acute distress, +lethargy HEENT: NC/AT, normal sclerae, EOMI CARDIO: S1, S2, No Murmur LUNGS: CTA bilaterally, diminished breath sounds at right base ABD: soft, non-tender, non-distended, +BS EXTREMITY: no edema SKIN: warm and dry. 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 ASSESSMENT & PLAN: Patient is 86 yr male from half-way presented with worsening weakness and confusion for 2 weeks. Diagnosed to have RLL pneumonia and parapneumonic effusion. New retroperitoneal mass identified. Urology and Oncology evaluated and recommended conservative management. Family considered comfort care. Palliative care on board. Plan to discharge to [facility] with Hospice in place. Metabolic encephalopathy: Could be Multifactorial etiology: In setting of hypothyroidism, thrush infections, Vit D deficiency, dementia and new malignancy with possible mets CT/MRI head: No acute process EEG is consistent with metabolic encephalopathy. Appreciate Neurology input Resolved. 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 Palliative care following as well Not a candidate for systemic chemotherapy candidate RLL Pneumonia and Pleural effusion: Likely parapneumonic S/P diagnostic and therapeutic tap on 07/29. [address] surgery help S/P Vanco and Cefepime and Augmentin AYLEEN on CKD III: Resolved Cr now at baseline Monitor renal function Leukocytosis: Likely secondary to malignancy Oral thrush-on Fluconazole PO after failed trial of nystatin washes as outpatient Completed fluconazole for 7 days H/O heart valve replacement Alzheimer's dementia: h/o problems with donepezil in the past stable exam GERD continue Zantac HLP: Zocor stopped 2/2 fluconazole use for thrush and not likely needed moving forward as it adds to polypharmacy with limited benefit Hypothyroidism: continue with Synthroid 50mcg (increased during this hospitalization) Needs repeat TSH in 6 weeks. DVT Px: heparin SQ Code Status: DNR Disposition: Plan to discharge to [facility] with Hospice today Follow up with family doctor in 1 week Vital Signs: Date Time Temp Pulse Resp B/P Pulse Ox O2 Delivery O2 Flow Rate FiO2 08/01/16 08:03 37.0 98 18 101/51 93 Room Air 08/01/16 08:00 93 Room Air 07/31/16 23:59 Room Air 07/31/16 23:08 37.2 95 18 103/84 92 07/31/16 16:08 91 Room Air 07/31/16 15:09 37.2 94 19 100/51 91 Room Air
--- NOTE | 2016-08-01 12:22 | Discharge Summary ---
Discharge Summary Date of Service August 01, 2016. Discharge Summary Admission Date: July 22, 2016 at 12:57 Discharge Date: August 01, 2016 Discharge Disposition: Personal care (With Hospice Services) Principal Diagnosis: Metabolic encephalopathy, HCAP, Hypothyroidism, vit D def Procedures: CT Head: Atrophy and chronic age-related change. No acute process. CXR: : Right basilar infiltrate combine with a right effusion. Underlying components of mild congestive failure Venous Doppler: No DVT within the right or left lower extremity. MRI Brain: No acute intracranial abnormality. Considerable chronic small vessel change. Atrophy. CT chest: 1. Large right pleural effusion. 2. Right lower lobe atelectatic change. 3. Several bilateral parenchymal nodules present possibly metastatic disease. 4. Retroperitoneal mass possibly of right renal origin versus pathologic retroperitoneal adenopathy. 5. Upper abdominal adenopathy 6. Probable metastatic liver disease. CT ABD: 1Right pleural effusion with right basilar atelectatic change. Mass occupying the right paravertebral region which is in continuity with and originating from the right kidney. Maximum dimensions are approximately 10 x 6 cm including renal dimension with potential vascular involvement. 2. Probable dann metastatic change with probable additional metastatic change to the liver. 3. Severely compromised exam due to the absence of intravenous/oral contrast enhancement. 4. Right pleural effusion with right lower lobe atelectatic change chest been described previously. 5. Within limitations discussed, diagnosis of exclusion must include a renal neoplastic process with metastatic change Vaccinations: None. Consultations: Neuro, Urology, CT surgery, Oncology Pending Studies/Follow-Up: Instructions / Follow-Up Please take all medications as instructed. Your vitamin D was very low, and you will need a high dose supplement for the next 6 weeks. This will need to be rechecked. You also had some evidence of underactive thyroid; as a result, your Synthroid was increased to 50mcg daily. You will need to have repeat bloodwork in 6 weeks. Cont to take the Synthroid first thing in the morning without food or other medications. You have been diagnosed with a pneumonia. Please obtain a repeat chest xray in 4-6 weeks to ensure complete resolution. You will need a follow-up with your primary care physician within one week of discharge as a follow-up from this hospitalization. It was a pleasure taking care of you! Call if you have any questions or problems. You can reach a [facility] hospitalist on duty at [facility] 24 hours a day by calling [phone]. Medication Reconciliation New Medications: Ergocalciferol (Vitamin D 48582 Unit) 50,000 Unit Cap 59681 INTERUNIT PO Q4D@0900 for 42 Days, #11 CAP Take one cap every 4 days for 6 weeks. Fluconazole (Fluconazole) 50 Mg Tab 50 MG PO QAM for 5 Days, #5 TAB Levothyroxine Sodium (Synthroid) 50 Mcg Tab 50 MCG PO DAILYBB for 30 Days, #30 TAB Continued Medications: Escitalopram Oxalate (Lexapro) 5 Mg Tab 5 MG PO QAM, TAB Ranitidine (Zantac) 150 Mg Tab 150 MG PO BID, TAB AM & PM Simvastatin (Zocor) 80 Mg Tab 80 MG PO QPM, TAB Discontinued Medications: Levothyroxine Sodium (Synthroid) 25 Mcg Tab 25 MCG PO QAM, TAB TAKE AT 6AM IN THE MORNING ON AN EMPTY STOMACH BEFORE TAKING FOOD OR OTHER MEDS Meloxicam (Mobic) 15 Mg Tab 12.5 MG PO DAILY, TAB 1/2 OF A 15MG TAB Nystatin (Nystatin Suspension) 1 Ml Susp 5 ML PO QID, ML Admission Information HPI (per Admitting provider): 86 yo M presents to ER from [facility] for increased weakness, lethargy, increased fatigue for the past two weeks. Workup revealed a RLL pneumonia and the patient reports some productive cough at least initially but denies any shortness of breath, chest pain, fevers, chills, headaches, dysuria or other urinary symptoms, abdominal pain or other pain, nausea, vomiting, or diarrhea. The history is given by the patient helped by his son who is at bedside. The son states that he just moved into [facility] in Apr and is doing well with it , but had recently been started on Lexapro for some depression. Otherwise no other new/changed medications and no other symptoms. At baseline, the patient ambulates without an assistive device. Physical Exam (per Admitting): GEN: WNWD, in no acute distress, alert and appropriate, no conversational dyspnea or tachypnea. He is [place] and doesn't have hearing aids in limiting exam. HEENT: NC/AT, PERRL, normal sclerae and conjunctivae, mucous membranes are moist , pharynx nonacute CARDIO: reg rate, S1/2 heard without m/g/r LUNGS: CTA bilaterally, no crackles, rales or wheezes, good diaphragmatic excursion except has diminished breath sounds at the right base ABD: soft, non-tender, non-distended, no rebound or guarding, +BS EXTREMITY: RP and DP palpable 2+ bilat, no LE swelling or edema, extremities are warm and well-perfused, small shallow pressure ulcers on soles of feet bilaterally NEURO: CN 2-12 grossly intact, sensation intact throughout, no gross focal deficits, has some obvious short term memory loss MUSC: 5/5 strength throughout, no focal deficits SKIN: warm and dry and wounds as above. Hospital Course Patient is 86 yr male from half[place]way presented with worsening weakness and confusion for 2 weeks. Diagnosed to have RLL pneumonia and parapneumonic effusion. New retroperitoneal mass identified. Urology and Oncology evaluated and recommended conservative management. Family considered comfort care. Palliative care on board. Plan to discharge to [facility] with Hospice in place. Metabolic encephalopathy: Could be Multifactorial etiology: In setting of hypothyroidism, thrush infections, Vit D deficiency, dementia and new malignancy with possible mets CT/MRI head: No acute process EEG is consistent with metabolic encephalopathy. Appreciate Neurology input Resolved. 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 Palliative care following as well Not a candidate for systemic chemotherapy candidate RLL Pneumonia and Pleural effusion: Likely parapneumonic S/P diagnostic and therapeutic tap on 07/29. [address] surgery help S/P Vanco and Cefepime and Augmentin AYLEEN on CKD III: Resolved Cr now at baseline Monitor renal function Leukocytosis: Likely secondary to malignancy Oral thrush-on Fluconazole PO after failed trial of nystatin washes as outpatient Completed fluconazole for 7 days H/O heart valve replacement Alzheimer's dementia: h/o problems with donepezil in the past stable exam GERD continue Zantac HLP: Zocor stopped 2/2 fluconazole use for thrush and not likely needed moving forward as it adds to polypharmacy with limited benefit Hypothyroidism: continue with Synthroid 50mcg (increased during this hospitalization) Needs repeat TSH in 6 weeks. DVT Px: heparin SQ Code Status: DNR Disposition: Plan to discharge to [facility] with Hospice today Follow up with family doctor in 1 week Total time spent on discharge = 35 minutes This includes examination of the patient, discharge planning, medication reconciliation, and communication with other providers. Discharge Instructions Discharge Instructions Date of Service July 25, 2016. Admission Reason for Admission: Altered Mental Status Discharge Discharge Diagnosis / Problem: Metabolic encephalopathy, HCAP, Hypothyroidism, vit D def Discharge Goals Goal(s): Prevent Disease Progression Activity Recommendations Activity Limitations: per Instructions/Follow-up section . Instructions / Follow-Up Instructions / Follow-Up Please take all medications as instructed. Your vitamin D was very low, and you will need a high dose supplement for the next 6 weeks. This will need to be rechecked. You also had some evidence of underactive thyroid; as a result, your Synthroid was increased to 50mcg daily. You will need to have repeat bloodwork in 6 weeks. Cont to take the Synthroid first thing in the morning without food or other medications. You have been diagnosed with a pneumonia. Please obtain a repeat chest xray in 4-6 weeks to ensure complete resolution. You will need a follow-up with your primary care physician within one week of discharge as a follow-up from this hospitalization. It was a pleasure taking care of you! Call if you have any questions or problems. You can reach a [facility] hospitalist on duty at [facility] 24 hours a day by calling [phone]. Take care of yourself. Xenia Welch DO [facility] Hospitalist Current Hospital Diet Patient's current hospital diet: AHA Diet (Heart Healthy) Discharge Diet Recommended Diet: AHA Diet (Heart Healthy) Procedures Procedures Performed: None. Pending Studies Studies pending at discharge: yes List of pending studies: Final blood cultures-preliminary reading is negative Laboratory Results Hemoglobin A1c Test 07/25/16 05:18 Range/Units Estimated Average Glucose 157 mg/dl Hemoglobin A1c 7.1 H 4.5-5.6 % Medical Emergencies . Who to Call and When: Medical Emergencies: If at any time you feel your situation is an emergency, please call 911 immediately. . Non-Emergent Contact Non-Emergency issues call your: Primary Care Provider . . "Provider Documentation" section prepared by Xenia Welch. . VTE Core Measure Inpt VTE Proph given/why not?: Unfractionated heparin SQ
[2016-08-01 12:51] VITALS: BP 101/51; PULSE 98; TEMP 37; O2SAT 93
[2016-08-01] MEDS ORDERED: NURSING VERBAL MED ORDER ONE (13:30)
[2016-08-03] MEDS ORDERED: FENTANYL PATCH REMOVE & WASTE SCH (08:59)
--- NOTE | 2016-08-07 10:52 | EDITING REQUIRED CODING QUERY ---
MALNUTRITION To promote full compliance with coding requirements relating to patient care, physician participation is requested in all cases of [employer] uncertainty. Please assist us with the question(s) below: Please place an X within the parenthesis (x). If other, please document: "Malnutrition" is documented in this record. If possible, please check the box that provides a more specific diagnosis: ( ) Mild malnutrition ( ) Moderate malnutrition ( ) Severe malnutrition ( ) Protein malnutrition (kwashiorkor) ( ) Severe protein calorie malnutrition ( ) Protein calorie malnutrition, unspecified ( ) Other (please specify): Was this diagnosis present on admission? Please place an X within the parenthesis (x). ( ) Present on admission ( ) Not present on admission ( ) Unable to be clinically determined Thank you Mitch Suárez
--- NOTE | 2016-08-07 11:04 | EDITING REQUIRED CODING QUERY ---
CODING QUERY To promote full compliance with coding requirements relating to patient care, provider participation is requested in all cases of oral surgery assistant uncertainty. Please assist us with the question(s) below: Coding Question(s): Patient admitted with pneumonia. Progress notes of 07/27 & 07/28/16 document gram negative pneumonia. Please check below the type of pneumonia you treated. Thanks for your assistance! Mitch Suárez [facility] Physician's Response(s): ____Likely____ Patient was treated for gram-negative pneumonia during this inpatient stay Patient was treat for another type of pneumonia (please document) Cannot clinically correlate which type of pneumonia patient was treated for Other/ Please document: Principal Diagnosis: "_that condition established after study, to be chiefly responsible for occasioning the admission of the patient to the hospital for care." Co-Existing Principal Diagnosis: "_when two or more diagnoses equally meet the criteria for principal diagnosis as determined by the circumstances of admission, diagnostic work up, and/or therapy provided, and the Alphabetic Index, Tabular List, or another coding guideline does not provide sequencing direction, any one of the diagnoses may be sequenced first." "When the physician has documented what appears to be a current diagnosis in the body of the record, but has not included the diagnosis in the final diagnostic statement, the physician should be asked whether the diagnosis should be added." (Source [facility]oding [facility] 2 QTR90. p3-4)
== END 2016-08-01 14:10 | disposition hospice, home (50) | DRG 177 ==
LOC: ENRESERVDT → ENRESERVTM → C.EDB 10:53 → C.2T 12:57 → C.MS2W 07-23 11:28 → C.MSICU 07-25 14:00 → C.MS2W 07-25 15:00
PROVIDERS: ADMIT Hospitalist; ATTEND Internal Medicine
PROC: 0JCR0ZZ Extirpation of Matter from Left Foot Subcutaneous Tissue and Fascia, Open Approach (ICD-10-PCS; 2016-07-24)
PROC: 0JCQ0ZZ Extirpation of Matter from Right Foot Subcutaneous Tissue and Fascia, Open Approach (ICD-10-PCS; 2016-07-24)
PROC: 0W993ZX Drainage of Right Pleural Cavity, Percutaneous Approach, Diagnostic (ICD-10-PCS; principal; 2016-07-29)
DX: J15.6 Pneumonia due to other Gram-negative bacteria (principal); C64.1 Malignant neoplasm of right kidney, except renal pelvis; J91.0 Malignant pleural effusion; Z51.5 Encounter for palliative care; G93.41 Metabolic encephalopathy; N17.9 Acute kidney failure, unspecified; C77.5 Secondary and unspecified malignant neoplasm of intrapelvic lymph nodes; B37.0 Candidal stomatitis; C78.7 Secondary malignant neoplasm of liver and intrahepatic bile duct; G30.9 Alzheimer's disease, unspecified; F02.80 Dementia in other diseases classified elsewhere, unspecified severity, without behavioral disturbance, psychotic disturbance, mood disturbance, and anxiety; K21.9 Gastro-esophageal reflux disease without esophagitis; E78.5 Hyperlipidemia, unspecified; Z95.2 Presence of prosthetic heart valve; E03.9 Hypothyroidism, unspecified; E55.9 Vitamin D deficiency, unspecified; D64.9 Anemia, unspecified; M25.774 Osteophyte, right foot; M25.775 Osteophyte, left foot